=== PATIENT | female | born 1965 | race Caucasian/White ===

== ENCOUNTER 2018-09-27 10:46 | Outpatient (CLI) | payer OTHER, SELFPAY ==
--- NOTE | 2018-09-27 09:39 | DI.RAD_ITS ---
SYMPTOM/DIAGNOSIS: LEFT ANKLE PAIN LEFT ANKLE: 09/27 Two views were obtained. No gross abnormality of the ankle mortise. Minimal spurring of the medial malleolus. No other specific abnormality seen on this limited series.
== END 2018-09-27 11:06 ==
PROVIDERS: PCP Neuromusculoskeletal Medicine & OMM; Visit Provider Physician Assistant
DX: S99.912A Unspecified injury of left ankle, initial encounter (principal); M25.572 Pain in left ankle and joints of left foot
CPT/HCPCS: 73600

== ENCOUNTER 2019-03-13 01:16 | Outpatient (CLI) | payer OTHER, SELFPAY ==
--- NOTE | 2019-03-13 14:30 | DI.MRI_ITS ---
EXAM: MR BRAIN WO CLINICAL HISTORY: Pt with new left sided headaches R51. TECHNIQUE: Multiplanar multisequence MRI was performed. COMPARISON: No exams were available for comparison FINDINGS: There is a large mucous retention cyst in the right maxillary sinus. The remaining sinuses as well as mastoid air cells appear clear. There is mild atrophy. There are few scattered high signal lesi ons in the white matter consistent with small vessel disease. No acute hemorrhage, infarct or mass i s seen. The vascular flow voids appear intact. The orbits are unremarkable. A partial empty sella is noted. IMPRESSION: Partial empty sella. Right maxillary sinus mucous retention cyst. No acute abnormality.
== END 2019-03-13 01:36 ==
PROVIDERS: PCP Family Medicine; Visit Provider Nurse Practitioner Adult Health
DX: R51 Headache (principal); J34.1 Cyst and mucocele of nose and nasal sinus; E23.6 Other disorders of pituitary gland
CPT/HCPCS: 70551

== ENCOUNTER 2019-03-26 18:19 | Outpatient (REF) | payer OTHER, SELFPAY | END 2019-03-26 18:39 | LOC: LBN 18:19 | PROVIDERS: PCP Family Medicine; Visit Provider Family Medicine | DX: R30.0 Dysuria (principal) | CPT/HCPCS: 87086 ==

== ENCOUNTER 2019-04-29 14:32 | Outpatient (CLI) | payer OTHER, SELFPAY ==
[2019-04-29 14:58] LABS: Mean Corpuscular Hemoglobin 28.9 pg (27.0-33.0); Mean Corpuscular Volume 84.8 fL (80-95); Mean Platelet Volume 10.1 fL (8.0-11.0); Platelet Count 198 x1000/uL (130-400); RBC 5.54 m/cumm (4.00-5.20); RBC Distribution Width 13.5 % (11.7-14.6); White Blood Cell Count 8.07 k/cumm (4.4-10.8)
[2019-04-29 15:50] LABS: ESR 29 mm/hr (0-30)
[2019-04-29 16:26] LABS: ALT 31 U/L (14-59); AST 18 U/L (15-37); Albumin 3.4 g/dL (3.4-5.0); Alkaline Phosphatase 90 U/L (46-116); Anion Gap 9.5 mmol/L (3-11); BUN 16 mg/dL (7-18); Bilirubin, Total 0.5 mg/dL (0.2-1.0); C-Reactive Protein 0.58 mg/dL (0.0-0.3); CO2 28.5 mmol/L (21.0-32.0); CREATININE 0.76 mg/dL (0.55-1.02); Calcium 8.6 mg/dL (8.5-10.1); Chloride 97 mmol/L (98-107); Creatine Kinase 83 U/L (26-192); Glucose 423 mg/dL (74-106); Potassium 4.4 mmol/L (3.5-5.1); Sodium 135 mmol/L (136-145); Total Protein 6.7 g/dL (6.4-8.2)
[2019-04-29 16:38] LABS: Vitamin D 25 Total 5.5 ng/ml (30-100)
[2019-04-30 10:47] LABS: Lyme Ab w Rflx to Lyme Confirm Negative (Negative)
[2019-04-30 15:39] LABS: ANA Interpretation Negative (Negative)
== END 2019-04-29 14:52 ==
PROVIDERS: PCP Family Medicine; Visit Provider Nurse Practitioner
DX: I10 Essential (primary) hypertension (principal); M79.10 Myalgia, unspecified site; M54.5 Low back pain
CPT/HCPCS: 36415; 80053; 82306; 82550; 85027; 85652; 84443; 86038; 86140; 86618

== ENCOUNTER 2019-05-12 10:06 | Emergency (ER) | payer OTHER, SELFPAY ==
[2019-05-12] VITALS (27 sets, daily range): BP systolic 111–151; BP diastolic 44–75; PULSE 71–87; RESP 15–24; TEMP 36.6; O2SAT 90–98
--- NOTE | 2019-05-12 10:18 | W.ED.GENAD ---
Discharge Plan Disposition Patient Disposition: HOME Condition: Improving Discharge Details Chief Complaint: GenMedical Clinical Impression: Myalgia, Arthralgia, Fracture of coccyx, Syncopal episodes Primary Care Provider: Enrike Heredia ED Provider: Linh Castillo Home Meds and New Rx's Prescriptions: New tramadol 50 mg tablet 50 mg PO BID PRN (Reason: pain) Qty: 10 RF: 0 methocarbamol 500 mg tablet 500 mg PO Q6H PRN (Reason: muscle spasm) Qty: 14 RF: 0 Continued acetaminophen-codeine 300-30 mg tablet 1 tab PO TID PRN (Reason: pain) Qty: 9 RF: 0 ergocalciferol (vitamin D2) 1,250 mcg (50,000 unit) capsule 50,000 unit PO QWEEK Qty: 6 RF: 3 lisinopril 40 mg tablet 40 mg PO DAILY Qty: 90 RF: 3 Lantus U-100 Insulin 100 unit/mL solution 90 unit SC DAILY Qty: 100 RF: 12 (DME) BD Insulin Syringe 1 mL 26 x 1/2 syringe See Rx Instructions .ROUTE .MEDSUPPLY Qty: 100 RF: 8 pseudoephedrine HCl 30 mg tablet (abuse-resistant) 30 mg PO Q6H PRN (Reason: nasal congestion) Qty: 20 RF: 0 nitroglycerin [Nitrostat] 0.4 MG tablet, sublingual 1 tab.sl Sublingual PRN Qty: 1 RF: 1 (DME) lancets 1 EACH misc 1 ea Miscellaneous TID Qty: 400 RF: 0 clotrimazole 1 % cream 1 applic TP BID RF: 0 prochlorperazine maleate 10 mg tablet 10 mg PO BID RF: 0 albuterol sulfate [ProAir HFA] 90 mcg/actuation HFA aerosol inhaler 2 puff Inhalation Q6H PRN PRN (Reason: shortness of breath or wheezing) Qty: 18 RF: 6 aspirin [Ecotrin Low Strength] 81 mg tablet,delayed release (DR/EC) 81 mg PO DAILY Qty: 90 RF: 3 atorvastatin 80 mg tablet 80 mg PO DAILY Qty: 90 RF: 3 clopidogrel [Plavix] 75 mg tablet 75 mg PO DAILY Qty: 90 RF: 3 ibuprofen 800 mg tablet 800 mg PO TID PRN PRN (Reason: pain) Qty: 180 RF: 3 insulin aspart U-100 [Novolog Flexpen U-100 Insulin] 100 unit/mL (3 mL) insulin pen See Rx Instructions subcut AC Qty: 15 RF: 6 isosorbide mononitrate 30 mg tablet extended release 24 hr 30 mg PO DAILY Qty: 90 RF: 3 metoprolol succinate [Toprol XL] 200 mg tablet extended release 24 hr 200 mg PO DAILY Qty: 90 RF: 3 pantoprazole [Protonix] 40 mg tablet,delayed release (DR/EC) 40 mg PO DAILY Qty: 90 RF: 3 prazosin 2 mg capsule 6 mg PO HS Qty: 180 RF: 3 triamcinolone acetonide 0.5 % cream 1 applic TP BID Qty: 454 RF: 6 quetiapine 400 mg tablet 800 mg PO QHS Qty: 180 RF: 3 benzonatate [Tessalon Perles] 100 mg capsule 100 mg PO TID PRN (Reason: cough) Qty: 30 RF: 0 hydrochlorothiazide 25 MG tablet 25 mg PO DAILY RF: 0 sertraline 100 mg tablet 200 mg PO DAILY RF: 0 Discontinued cyclobenzaprine 10 mg tablet 10 mg PO TID PRN (Reason: muscle spasm) Qty: 30 RF: 0 Discharge Instructions Instructions: Syncope (ED), Musculoskeletal Pain (ED) Additional Instructions: Drink plenty of fluids and get plenty of rest. Alternate tylenol and motrin as needed and directed for pain. You can try [id number] Lidoderm patches to use for pain as needed and directed. Take the tramadol and methocarbamol as needed and directed for pain. Follow-up with your primary care doctor in 1 week for reevaluation and for referral for outpatient monitor technician if symptoms persist or worsen. Return to the emergency department with any worsening or new concerning symptoms. Discharge Data Discharge Date/Time-TO BE ENTERED AT DEPARTURE: 05/12/19 15:11 Discharge Physician: Linh Castillo Medical Decision Making 1020 -- 54-year-old female with a history of anxiety, depression, schizophrenia, PTSD, borderline multiple personality disorders, diabetes, hypertension, hyperlipidemia presents for multiple complaints including myalgias for few weeks, cough with mild shortness of breath, coccyx pain and headache status post fall after multiple syncopal episodes last night. Denies fever. EKG on arrival notes a rate of 84, sinus with no acute ST ischemic changes. Patient appears to have discomfort with any movement, most specifically in her coccyx. Her PCP stopped her statin due to her myalgias. She also states she has had a recent negative Lyme test. Differential diagnosis includes electrolyte abnormality, dehydration, myalgias due to statin, coccyx contusion versus fracture, pneumonia, bronchitis. Will check screening labs, CT head, chest x-ray and coccyx x-ray and give a dose of Decadron, Toradol and fluids and reassess. 1245 -- Labs and imaging reviewed. Glucose 411. Pt states her sugars have been 200s at home. Chest x-ray negative. CT head negative for acute findings. Coccyx x-ray noted a questionable healing nondisplaced fracture. Patient reassessed -pain decreased from 11 down to 7. Still complaining of midline and left-sided lower back pain. Will give a dose of morphine and Lidoderm patch and reassess. 1415 --patient feels much better. She appears much more comfortable. Orthostats obtained and within normal limits. Urinalysis negative for infection. Patient feels good to go home. We will send home with pain medication. Patient advised to call her primary care doctor tomorrow for follow-up. Usual and customary return precautions given prior to discharge. Medical Records Medical records reviewed: Yes I reviewed the patient's medical records. Imaging Data Radiologic Study: Radiologist's impression: XR Chest, 2 Views Exam date and time: 05/12/2019 12:15 PM Age: 54 years old Clinical indication: Chest pain; Type not specified; Patient HX: Difficulty breathing TECHNIQUE: Imaging protocol: XR of the chest Views: 2 views. COMPARISON: No relevant prior studies available. FINDINGS: Lungs: Unremarkable. No consolidation. Pleural space: Unremarkable. No pleural effusion. No pneumothorax. Heart/Mediastinum: Unremarkable. No cardiomegaly. Bones/joints: Unremarkable. IMPRESSION: No acute findings. CT Head Without Contrast Exam date and time: 05/12/2019 12:09 PM Age: 54 years old Clinical indication: Dizziness and visual disturbance; Patient HX: H/a TECHNIQUE: Imaging protocol: Computed tomography of the head without contrast. Radiation optimization: All CT scans at this facility use at least one of these dose optimization techniques: automated exposure control; mA and/or kV adjustment per patient size (includes targeted exams where dose is matched to clinical indication); or iterative reconstruction. COMPARISON: CT HEAD/BRAIN WO CONTRAST 01/09/2019 5:19 PM FINDINGS: Brain: There is mild diffuse heterogeneity of the white matter attenuation, consistent with chronic white matter ischemic changes. There is mild generalized brain parenchymal volume loss. Ventricles: The ventricular system demonstrates mild diffuse compensatory enlargement. Bones/joints: Unremarkable. No acute fracture. Sinuses: Partial opacification of the right maxillary sinus with a frothy air fluid level. The remaining paranasal sinuses are clear. Mastoid air cells: Visualized mastoid air cells are well aerated. Soft tissues: Unremarkable. Other findings: Partially empty sella turcica. IMPRESSION: 1. No acute intracranial findings. 2. Partially empty sella turcica. 3. Right maxillary sinusitis. Lab Data Lab results reviewed: Yes I reviewed the patient's lab results. Labs: Laboratory Tests Range/Units 05/12/19 05/12/19 05/12/19 10:50 10:50 10:50 WBC (4.4-10.8) k/cumm 7.93 RBC (4.00-5.20) m/cumm 5.57 H Hgb (12.0-15.5) g/dL 16.2 H Hct (36.0-46.0) % 46.9 H MCV (80-95) fL 84.2 MCH (27.0-33.0) pg 29.1 MCHC (32.0-36.0) g/dL 34.5 RDW (11.7-14.6) % 13.7 Plt Count (130-400) x1000/uL 215 MPV (8.0-11.0) fL 10.0 Immature Gran % % 0.5 Neutrophils % 66.7 Lymphocytes % 23.2 Monocytes % 7.8 Eosinophils % 1.4 Basophils % 0.4 Absolute Neutrophils (1.2-6.7) k/cumm 5.29 Absolute Lymphocytes (1.2-3.4) k/cumm 1.84 Absolute Monocytes (0.11-0.7) k/cumm 0.62 Absolute Eosinophils (0.0-0.7) k/cumm 0.11 Absolute Basophils (0.0-0.2) k/cumm 0.03 Sodium (136-145) mmol/L 133 L Potassium (3.5-5.1) mmol/L 4.2 Chloride (98-107) mmol/L 95 L Carbon Dioxide (21.0-32.0) mmol/L 29.7 Anion Gap (3-11) mmol/L 8.3 BUN (7-18) mg/dL 18 Creatinine (0.55-1.02) mg/dL 0.78 Estimated GFR/1.73 m2 (mL/min/1.73m2) >= 60.00 Glucose (74-106) mg/dL 411 H Calcium (8.5-10.1) mg/dL 9.5 Magnesium (1.8-2.4) mg/dL 1.6 L Total Bilirubin (0.2-1.0) mg/dL 0.7 AST (15-37) U/L 17 ALT (14-59) U/L 24 Alkaline Phosphatase (46-116) U/L 76 Creatine Kinase (26-192) U/L 64 Troponin I (<0.06) ng/Ml < 0.05 Total Protein (6.4-8.2) g/dL 7.0 Albumin (3.4-5.0) g/dL 3.3 L Urine Color (Yellow) Urine Clarity (Clear) Urine pH (5-8) Ur Specific [place] (1.005-1.025) Urine Protein (Negative) mg/dL Urine Ketones (Negative) mg/dL Urine Blood (Negative) Urine Nitrite (Negative) Urine Bilirubin (Negative) Urine Urobilinogen (Up TO 0.2) EU/dL Ur Leukocyte Esterase (Negative) Urine RBC (0-2) HPF Urine WBC (0-5) HPF Ur Epithelial Cells (Negative) HPF Urine Crystals (Negative) HPF Urine Bacteria (Negative) HPF Urine Casts (Negative) LPF Urine Mucus (Negative) Urine Other (Negative) Ur Culture Indicated? Urine Glucose (Negative) mg/dL Range/Units 05/12/19 13:15 WBC (4.4-10.8) k/cumm RBC (4.00-5.20) m/cumm Hgb (12.0-15.5) g/dL Hct (36.0-46.0) % MCV (80-95) fL MCH (27.0-33.0) pg MCHC (32.0-36.0) g/dL RDW (11.7-14.6) % Plt Count (130-400) x1000/uL MPV (8.0-11.0) fL Immature Gran % % Neutrophils % Lymphocytes % Monocytes % Eosinophils % Basophils % Absolute Neutrophils (1.2-6.7) k/cumm Absolute Lymphocytes (1.2-3.4) k/cumm Absolute Monocytes (0.11-0.7) k/cumm Absolute Eosinophils (0.0-0.7) k/cumm Absolute Basophils (0.0-0.2) k/cumm Sodium (136-145) mmol/L Potassium (3.5-5.1) mmol/L Chloride (98-107) mmol/L Carbon Dioxide (21.0-32.0) mmol/L Anion Gap (3-11) mmol/L BUN (7-18) mg/dL Creatinine (0.55-1.02) mg/dL Estimated GFR/1.73 m2 (mL/min/1.73m2) Glucose (74-106) mg/dL Calcium (8.5-10.1) mg/dL Magnesium (1.8-2.4) mg/dL Total Bilirubin (0.2-1.0) mg/dL AST (15-37) U/L ALT (14-59) U/L Alkaline Phosphatase (46-116) U/L Creatine Kinase (26-192) U/L Troponin I (<0.06) ng/Ml Total Protein (6.4-8.2) g/dL Albumin (3.4-5.0) g/dL Urine Color (Yellow) Yellow Urine Clarity (Clear) Clear Urine pH (5-8) 5.5 Ur Specific [place] (1.005-1.025) 1.020 Urine Protein (Negative) mg/dL >=300 H Urine Ketones (Negative) mg/dL 15 H Urine Blood (Negative) Small H Urine Nitrite (Negative) Negative Urine Bilirubin (Negative) Negative Urine Urobilinogen (Up TO 0.2) EU/dL 0.2 Ur Leukocyte Esterase (Negative) Negative Urine RBC (0-2) HPF 3-5 H Urine WBC (0-5) HPF 0-2 Ur Epithelial Cells (Negative) HPF Moderate Urine Crystals (Negative) HPF Negative Urine Bacteria (Negative) HPF Few Urine Casts (Negative) LPF 0-2 hyaline Urine Mucus (Negative) Trace Urine Other (Negative) Negative Ur Culture Indicated? No/sq. contamination Urine Glucose (Negative) mg/dL 500 H ECG Data Attestation: I personally reviewed and interpreted this ECG (s) as follows: Interpretation: Rate of 84, sinus, no acute ST elevation or depression. MN 174. QTc 470. QRS 110. HPI General Mode of arrival: ambulatory. Date/Time Provider Initiated Documentation: 05/12/19 10:08. Limitations to Documentation: no limitations. Information obtained by: patient. HPI Narrative: Patient is a 54-year-old female with a history of anxiety, depression, schizophrenia, PTSD, borderline personality disorder, multiple personality disorder, diabetes, hypertension, hyperlipidemia who presents for multiple complaints. She states she has been having diffuse body pain specifically in both arms, legs and her lower back for the past 2 weeks. She saw her PCP for this and it was thought it may be fibromyalgia, or due to her statin which she stopped 4 days ago. She states she was also placed on Flexeril and gabapentin for this with some relief. She states she was also treated for an ear infection with antibiotics which she finished Monday. She states the ear pain improved since then. She also complains of cough with green sputum and occasional shortness of breath for the past 2 days. She states last night she was walking around home and became dizzy and passed out a few times. She states during 1 of these episodes she fell and hit her head and bottom on the ground is complaining of headache and tailbone pain. She states she still feels dizzy today which feels like a lightheaded sensation specifically when getting up and walking around. She denies any chest pain but does admit to feeling of palpitations. She states she has been eating and drinking and denies any vomiting, diarrhea or abdominal pain. Related Data Home Medications Medication Instructions Recorded Confirmed nitroglycerin [Nitrostat] 1 tab.sl SUBLINGUAL PRN #1 bottle 04/16/14 05/12/19 lancets #400 ea 05/03/14 04/26/19 hydrochlorothiazide 25 mg PO DAILY 06/14/17 05/12/19 clotrimazole 1 % topical cream 1 applic TP BID 01/16/19 04/26/19 prochlorperazine maleate 10 mg 10 mg PO BID 01/18/19 05/12/19 tablet lisinopril 40 mg tablet 40 mg PO DAILY #90 tab 01/24/19 05/12/19 albuterol sulfate 90 mcg/actuation 2 puff INHALATION Q6H PRN PRN #18 03/15/19 05/12/19 aerosol inhaler gm aspirin 81 mg tablet,delayed 81 mg PO DAILY #90 tab 03/15/19 05/12/19 release atorvastatin 80 mg tablet 80 mg PO DAILY #90 tab 03/15/19 05/12/19 clopidogrel 75 mg tablet 75 mg PO DAILY #90 tab 03/15/19 05/12/19 ibuprofen 800 mg tablet 800 mg PO TID PRN PRN #180 tab 03/15/19 05/12/19 insulin aspart U-100 100 unit/mL See Rx Instructions SUBCUT AC #15 03/15/19 05/12/19 (3 mL) subcutaneous pen ml isosorbide mononitrate 30 mg 30 mg PO DAILY #90 tab 03/15/19 05/12/19 tablet,extended release 24 hr metoprolol succinate 200 mg 200 mg PO DAILY #90 tab 03/15/19 05/12/19 tablet,extended release 24 hr pantoprazole 40 mg tablet,delayed 40 mg PO DAILY #90 tab-cap 03/15/19 05/12/19 release prazosin 2 mg capsule 6 mg PO HS #180 cap 03/15/19 05/12/19 triamcinolone acetonide 0.5 % 1 applic TP BID #454 gm 03/15/19 05/12/19 topical cream quetiapine 400 mg tablet 800 mg PO QHS #180 tab 03/18/19 05/12/19 acetaminophen 300 mg-codeine 30 mg 1 tab PO TID PRN #9 tab 04/29/19 05/12/19 tablet ergocalciferol (vitamin D2) 1,250 50,000 unit PO QWEEK #6 cap 04/30/19 05/12/19 mcg (50,000 unit) capsule benzonatate 100 mg capsule 100 mg PO TID PRN #30 cap 05/03/19 05/12/19 insulin glargine 100 unit/mL 90 unit SC DAILY #100 ml 05/06/19 05/12/19 subcutaneous solution insulin syringe-needle U-100 1 mL #100 each 05/06/19 05/06/19 26 x 1/2 pseudoephedrine HCl 30 mg tablet 30 mg PO Q6H PRN #20 tab 05/06/19 05/12/19 (abuse-resistant) methocarbamol 500 mg PO Q6H PRN #14 tab 05/12/19 sertraline 200 mg PO DAILY 05/12/19 05/12/19 tramadol 50 mg PO BID PRN #10 tab 05/12/19 Previous Rx's Medication Instructions Recorded lisinopril 40 mg tablet 40 mg PO DAILY #90 tab 01/24/19 albuterol sulfate 90 mcg/actuation 2 puff INHALATION Q6H PRN PRN #18 03/15/19 aerosol inhaler gm aspirin 81 mg tablet,delayed 81 mg PO DAILY #90 tab 03/15/19 release atorvastatin 80 mg tablet 80 mg PO DAILY #90 tab 03/15/19 clopidogrel 75 mg tablet 75 mg PO DAILY #90 tab 03/15/19 ibuprofen 800 mg tablet 800 mg PO TID PRN PRN #180 tab 03/15/19 insulin aspart U-100 100 unit/mL See Rx Instructions SUBCUT AC #15 03/15/19 (3 mL) subcutaneous pen ml isosorbide mononitrate 30 mg 30 mg PO DAILY #90 tab 03/15/19 tablet,extended release 24 hr metoprolol succinate 200 mg 200 mg PO DAILY #90 tab 03/15/19 tablet,extended release 24 hr pantoprazole 40 mg tablet,delayed 40 mg PO DAILY #90 tab-cap 03/15/19 release prazosin 2 mg capsule 6 mg PO HS #180 cap 03/15/19 triamcinolone acetonide 0.5 % 1 applic TP BID #454 gm 03/15/19 topical cream quetiapine 400 mg tablet 800 mg PO QHS #180 tab 03/18/19 acetaminophen 300 mg-codeine 30 mg 1 tab PO TID PRN #9 tab 04/29/19 tablet ergocalciferol (vitamin D2) 1,250 50,000 unit PO QWEEK #6 cap 04/30/19 mcg (50,000 unit) capsule benzonatate 100 mg capsule 100 mg PO TID PRN #30 cap 05/03/19 insulin glargine 100 unit/mL 90 unit SC DAILY #100 ml 05/06/19 subcutaneous solution insulin syringe-needle U-100 1 mL #100 each 03/23/20 26 x 1/2 pseudoephedrine HCl 30 mg tablet 30 mg PO Q6H PRN #20 tab 05/06/19 (abuse-resistant) methocarbamol 500 mg PO Q6H PRN #14 tab 05/12/19 tramadol 50 mg PO BID PRN #10 tab 05/12/19 Allergies Allergy/AdvReac Type Severity Reaction Status Date / Time levofloxacin [From Levaquin] Allergy Verified 04/29/19 14:03 Penicillins Allergy Verified 04/29/19 14:03 pioglitazone HCl [From Actos] Allergy Verified 04/29/19 14:03 gabapentin AdvReac so sick Verified 04/29/19 14:03 vomitting/headache metformin AdvReac DIARRHEA Verified 04/29/19 14:03 Review of Systems All systems reviewed & are unremarkable except as noted in HPI and below Constitutional Constitutional: Reports as per HPI, Denies chills and Denies fever(s) Eyes Eyes: Denies blurry vision ENT Ears, Nose, Mouth, and Throat: Reports dizziness, Denies sore throat and Denies throat swelling Cardiovascular Cardiovascular: Denies chest pain, Reports rapid heart rate and Denies dyspnea Respiratory Respiratory: Reports cough and Denies dyspnea Gastrointestinal Gastrointestinal: Denies abdominal pain, Denies diarrhea and Denies vomiting Genitourinary Genitourinary: Denies hematuria and Denies dysuria Musculoskeletal Musculoskeletal: Reports back pain and Denies numbness Integumentary/Breasts Skin/Breast: Denies lesions and Denies rash Neurologic Neurologic: Reports dizziness, Denies localized weakness and Denies numbness Allergic/Immunologic Allergic/Immunologic: Denies throat swelling [facility] Social History Smoking/Tobacco Use Status: Current every day Tobacco Type: cigarettes Years smoked: 40 Alcohol Intake: current Alcohol Intake frequency: holidays/special occasions only Alcohol type: wine Drug use: Never Adopted: No Caregiver/Support person: No Foster care: No Household members: none Number of Children: 2 Do you need help understanding health information?: Never current occupation: Disabled Pets and animals: Yes (Therapy dog) Sexually active: No Do you think of yourself as: straight/heterosexual Current gender identity: female What is your relationship status?: Panel score (0-1 are the most socially isolated patients): 0 Seatbelt use: never Do you feel safe at home: Yes Do you feel safe in your relationship?: Yes Exam Const General: cooperative and healthy appearing Orientation: alert and awake [facility] Head: no palpable skull fracture and normocephalic Head images: 1. 2 x 2 centimeter small faint area of ecchymosis that is tender to palpation. No induration or fluctuance. No open wounds noted. Ears: hearing grossly normal bilaterally, external ears normal and TM's normal bilaterally General nose exam: external nose normal Face and sinus: normal facial exam Mouth: oral mucosae normal Teeth and gingiva: dentition normal Throat: posterior oropharynx normal Eyes General: appearance normal, both eyes and all related structures Eyelids: eyelids normal Pupils: PERRL EOM: EOM intact bilaterally Neck Neck: normal visual inspection Lymphatic: no lymphadenopathy noted Chest Chest: normal inspection of the chest Resp Effort & Inspection: normal respiratory effort and able to speak in complete sentences Auscultation: clear to auscultation bilaterally Cardio Rate: regular rate Rhythm: regular rhythm GI Inspection: normal to inspection Palpation: soft, not firm, no guarding, no hepatosplenomegaly, no masses and nontender Auscultation: normal bowel sounds Back/Spine/Pelvis Back: no CVA tenderness Cervical Spine: No cervical spinal tenderness Thoracic/Lumbar Spine: No thoracic spinal tenderness and No lumbar spinal tenderness Skin General skin exam: no rashes or lesions noted Neuro General: patient alert and patient awake Cognition: normal cognition Speech: speech normal Gait: normal gait Motor: muscle tone normal throughout Sensory Exam: no sensory deficits noted Extrem General: normal to inspection, full ROM and capillary refill normal Psych Appearance: grossly normal Mental Status: mental status grossly normal Speech and Movement: speech and movement normal Affect: normal affect Thought Process: normal
[2019-05-12] MEDS: Dexamethasone 10 MG/ML VIAL IVP (11:45)
[2019-05-12] MEDS: Ketorolac 30 MG/ML VIAL IVP (11:47)
[2019-05-12] MEDS: Normal Saline 1,000 ML 1000 ML IV (11:47)
[2019-05-12 11:50] LABS: Abs Immature Grans 0.04 k/cumm (0.0-0.09); Absolute Basophil Count 0.03 k/cumm (0.0-0.2); Absolute Eosinophil Count 0.11 k/cumm (0.0-0.7); Absolute Lymphocyte Count 1.84 k/cumm (1.2-3.4); Absolute Monocyte Count 0.62 k/cumm (0.11-0.7); Absolute Neutrophil Count 5.29 k/cumm (1.2-6.7); Basophils % 0.4; Eosinophils % 1.4; HCT 46.9 % (36.0-46.0); HGB 16.2 g/dL (12.0-15.5); Immature Grans % 0.5 %; Lymphocytes % 23.2; Mean Corp. HGB Concentration 34.5 g/dL (32.0-36.0); Mean Corpuscular Hemoglobin 29.1 pg (27.0-33.0); Mean Corpuscular Volume 84.2 fL (80-95); Monocytes % 7.8; Neutrophils % 66.7; Platelet Count 215 x1000/uL (130-400); RBC 5.57 m/cumm (4.00-5.20); RBC Distribution Width 13.7 % (11.7-14.6); White Blood Cell Count 7.93 k/cumm (4.4-10.8)
[2019-05-12 12:06] LABS: Creatine Kinase 64 U/L (26-192)
--- NOTE | 2019-05-12 12:08 | DI.CT_ITS ---
EXAM: CT HEAD WO CLINICAL HISTORY: s/p head injury, dizziness, r/o acute injury COMPARISON: MR BRAIN WO from 03/13/2019 FINDINGS: Noncontrast cranial CT was performed. Note is made of fluid in the right maxillary antrum, question acute or chronic sinusitis. The orbital and temporal bone structures appear intact. Mastoid air keshawn ls and paranasal sinuses are otherwise well aerated. Motion artifact somewhat limits this examinatio n. There is an unremarkable appearance of the ventricular system. There is mild bifrontal atrophy. The re is no evidence of acute intracranial hemorrhage, mass effect, or midline shift. IMPRESSION: No evidence of acute intracranial process.
[2019-05-12 12:10] LABS: ALT 24 U/L (14-59); AST 17 U/L (15-37); Albumin 3.3 g/dL (3.4-5.0); Alkaline Phosphatase 76 U/L (46-116); Anion Gap 8.3 mmol/L (3-11); BUN 18 mg/dL (7-18); Bilirubin, Total 0.7 mg/dL (0.2-1.0); CO2 29.7 mmol/L (21.0-32.0); CREATININE 0.78 mg/dL (0.55-1.02); Calcium 9.5 mg/dL (8.5-10.1); Chloride 95 mmol/L (98-107); Glucose 411 mg/dL (74-106); Magnesium 1.6 mg/dL (1.8-2.4); Potassium 4.2 mmol/L (3.5-5.1); Sodium 133 mmol/L (136-145); Troponin I < 0.05 ng/Ml (<0.06)
--- NOTE | 2019-05-12 12:19 | DI.RAD_ITS ---
EXAM: <XR CHEST 2V PA LATERAL> CLINICAL HISTORY: <cough, sob, r/o acute disease> TECHNIQUE: 2D digital imaging was performed. COMPARISON: CHEST 2 VIEWS PA,LAT from 10/17/2013 FINDINGS: The heart is not enlarged. The lungs are clear and well expanded. No pleural effusion seen. Mediastin al contours appear intact. IMPRESSION: Normal chest
--- NOTE | 2019-05-12 12:30 | DI.RAD_ITS ---
EXAM: XR SACRUM COCCYX CLINICAL HISTORY: s/p fall onto bottom, r/o acute fracture TECHNIQUE: COMPARISON: No exams were available for comparison FINDINGS: Three views were obtained. Bones appears somewhat demineralized and there is poor visualization of t he sacral cortex on the AP views. Question slight cortical discontinuity and/or cortical thickening associated with distal sacrum/proximal coccyx, healing injury not excluded. IMPRESSION: Examination is technically limited, no displaced fracture seen but the possibility of nondisplaced he aling coccygeal or distal sacral fracture is not excluded. If clinically indicated additional evalua tion with CT could be considered.
--- NOTE | 2019-05-12 12:43 | DI.VRAD_ITS ---
PROCEDURE INFORMATION: Exam: XR Chest, 2 Views Exam date and time: 05/12/2019 12:15 PM Age: 54 years old Clinical indication: Chest pain; Type not specified; Patient HX: Difficulty breathing TECHNIQUE: Imaging protocol: XR of the chest Views: 2 views. COMPARISON: No relevant prior studies available. FINDINGS: Lungs: Unremarkable. No consolidation. Pleural space: Unremarkable. No pleural effusion. No pneumothorax. Heart/Mediastinum: Unremarkable. No cardiomegaly. Bones/joints: Unremarkable. IMPRESSION: No acute findings. Dictated and Authenticated by: Flaquito Colin MD. Ordering:SARIKA Melton MD
--- NOTE | 2019-05-12 12:51 | DI.VRAD_ITS ---
PROCEDURE INFORMATION: Exam: CT Head Without Contrast Exam date and time: 05/12/2019 12:09 PM Age: 54 years old Clinical indication: Dizziness and visual disturbance; Patient HX: H/a TECHNIQUE: Imaging protocol: Computed tomography of the head without contrast. Radiation optimization: All CT scans at this facility use at least one of these dose optimization techniques: automated exposure control; mA and/or kV adjustment per patient size (includes targeted exams where dose is matched to clinical indication); or iterative reconstruction. COMPARISON: CT HEAD/BRAIN WO CONTRAST 01/09/2019 5:19 PM FINDINGS: Brain: There is mild diffuse heterogeneity of the white matter attenuation, consistent with chronic white matter ischemic changes. There is mild generalized brain parenchymal volume loss. Ventricles: The ventricular system demonstrates mild diffuse compensatory enlargement. Bones/joints: Unremarkable. No acute fracture. Sinuses: Partial opacification of the right maxillary sinus with a frothy air fluid level. The remaining paranasal sinuses are clear. Mastoid air cells: Visualized mastoid air cells are well aerated. Soft tissues: Unremarkable. Other findings: Partially empty sella turcica. IMPRESSION: 1. No acute intracranial findings. 2. Partially empty sella turcica. 3. Right maxillary sinusitis. Dictated and Authenticated by: Flaquito Colin MD. Ordering:SARIKA Melton MD
[2019-05-12] MEDS: Lidocaine 5% Patch 1 PATCH TP (13:09)
[2019-05-12 13:24] LABS: Bilirubin Negative (Negative); Blood Small (Negative); Clarity Clear (Clear); Glucose 500 mg/dL (Negative); Ketones 15 mg/dL (Negative); Leukocyte Esterase Negative (Negative); Nitrite Negative (Negative); Urobilinogen 0.2 EU/dL (Up TO 0.2); pH 5.5 (5-8)
--- NOTE | 2019-05-12 13:24 | DI.VRAD_ITS ---
PROCEDURE INFORMATION: Exam: XR Sacrum and Coccyx, 2 or More Views Exam date and time: 05/12/2019 12:20 PM Age: 54 years old Clinical indication: Pain in coccyx area TECHNIQUE: Imaging protocol: XR of the sacrum and coccyx, 2 or more views. COMPARISON: No relevant prior studies available. FINDINGS: Bones/joints: There may be some periosteal reaction about the coccyx which could represent a healing nondisplaced fracture. No displaced fractures are evident. Mild degenerative changes at the lumbosacral junction. Soft tissues: Normal. Vasculature: Vascular calcifications are noted. There are numerous benign phleboliths in the pelvis. IMPRESSION: There may be some periosteal reaction about the coccyx which could represent a healing nondisplaced fracture. No displaced fractures are evident. Recommend clinical correlation to point tenderness. Dictated and Authenticated by: Flaquito Colin MD. Ordering:SARIKA Melton MD
[2019-05-12 13:35] LABS: Bacteria Few HPF (Negative); Crystals Negative HPF (Negative); Epithelial Cells Moderate HPF (Negative); Mucus Trace (Negative); Other Cells Negative (Negative); WBC 0-2 HPF (0-5)
[2019-05-12 13:36] LABS: C & S Indicated? No/Sq. Contamination; Casts 0-2 Hyaline LPF (Negative)
== END 2019-05-12 15:11 | disposition home or self-care (01) ==
PROVIDERS: Emergency Provider Physician Assistant; PCP Family Medicine
DX: S32.2XXA Fracture of coccyx, initial encounter for closed fracture (principal); W19.XXXA Unspecified fall, initial encounter; R55 Syncope and collapse; M79.10 Myalgia, unspecified site; R05 Cough; E11.65 Type 2 diabetes mellitus with hyperglycemia; Z79.4 Long term (current) use of insulin; I10 Essential (primary) hypertension; J44.9 Chronic obstructive pulmonary disease, unspecified; F17.210 Nicotine dependence, cigarettes, uncomplicated
CPT/HCPCS: 36415; 80053; 82550; 93005; 96361; 96374; 96375; 99285; 70450; 71046; 72220; 81003; 81015; 83735; 84484; 85025; 93010; J1100; J1885

== ENCOUNTER 2019-05-17 01:13 | Outpatient (CLI) | payer OTHER, SELFPAY | END 2019-05-17 01:33 | PROVIDERS: PCP Family Medicine; Visit Provider Family Medicine | DX: R55 Syncope and collapse (principal); I47.2 Ventricular tachycardia | CPT/HCPCS: 93225 ==

== ENCOUNTER 2019-05-20 09:10 | Outpatient (CLI) | payer OTHER, SELFPAY ==
--- NOTE | 2019-05-20 10:53 | W.HOLTRPT ---
Date of service: 05/20/19 Time of Service: 10:53 Holter Monitor Report Holter Monitor Note: This is a Holter monitor ordered for the indication of syncope. ?Patient was in normal sinus rhythm for majority of the recording. ?There were 0 episodes of supraventricular tachycardia and 13 premature atrial contractions. ?There was one 4 beat run of ventricular tachycardia and 30 singular ventricular ectopic events. ?There were no episodes of atrial fibrillation, no pauses greater than 3 seconds and no evidence of high degree heart block. ?There were 4 patient diary events all associated with normal sinus rhythm and one singular PVC.
== END 2019-05-20 09:30 ==
PROVIDERS: PCP Family Medicine; Visit Provider Family Medicine
DX: R55 Syncope and collapse (principal); I47.2 Ventricular tachycardia
CPT/HCPCS: 93226

== ENCOUNTER 2019-06-07 03:02 | Outpatient (CLI) | payer OTHER, SELFPAY ==
--- NOTE | 2019-06-07 07:00 | DI.US_ITS ---
EXAM: US LOWER EXTREMITY VENOUS LT CLINICAL HISTORY: New onset LLE edema,r60.9. TECHNIQUE: Lower extremity venous ultrasound performed using grayscale, color-flow, and spectral Dop pler analysis. COMPARISON: No exams were available for comparison FINDINGS: The common femoral, femoral and popliteal veins demonstrate normal compressibility, augmentation, and color Doppler. The posterior tibial veins are patent. The saphenous vein appears free of thrombus. No Sauer's cyst or hematoma is seen. IMPRESSION: No evidence of DVT. DATA REPOSITORY:
== END 2019-06-07 03:22 ==
PROVIDERS: PCP Family Medicine; Visit Provider Family Medicine
DX: R60.0 Localized edema (principal)
CPT/HCPCS: 93971

== ENCOUNTER 2019-07-07 14:44 | Emergency (ER) | payer OTHER, SELFPAY ==
[2019-07-07 14:50] VITALS: BP 209/83; PULSE 77; RESP 14; TEMP 37; O2SAT 95
--- NOTE | 2019-07-07 14:59 | ED.GENADUL_ITS ---
Discharge Plan Disposition Patient Disposition: HOME Condition: Good Discharge Details Chief Complaint: Vascular Clinical Impression: Edema, Leg pain Primary Care Provider: Enrike Heredia ED Provider: Zainab Abel Home Meds and New Rx's Prescriptions: Continued ergocalciferol (vitamin D2) 1,250 mcg (50,000 unit) capsule 50,000 unit PO QWEEK Qty: 6 RF: 3 metoprolol succinate 100 mg tablet extended release 24 hr 100 mg PO DAILY Qty: 30 RF: 0 furosemide 20 mg tablet 20 mg PO DAILY Qty: 30 RF: 0 lisinopril 40 mg tablet 40 mg PO DAILY Qty: 90 RF: 3 Lantus U-100 Insulin 100 unit/mL solution 90 unit SC DAILY Qty: 100 RF: 12 (DME) BD Insulin Syringe 1 mL 26 x 1/2 syringe See Rx Instructions .ROUTE .MEDSUPPLY Qty: 100 RF: 8 pseudoephedrine HCl 30 mg tablet (abuse-resistant) 30 mg PO Q6H PRN (Reason: nasal congestion) Qty: 20 RF: 0 tramadol 50 mg tablet 50 mg PO BID PRN (Reason: pain) Qty: 10 RF: 0 nitroglycerin [Nitrostat] 0.4 MG tablet, sublingual 1 tab.sl Sublingual PRN Qty: 1 RF: 1 (DME) lancets 1 EACH misc 1 ea Miscellaneous TID Qty: 400 RF: 0 clotrimazole 1 % cream 1 applic TP BID RF: 0 prochlorperazine maleate 10 mg tablet 10 mg PO BID RF: 0 albuterol sulfate [ProAir HFA] 90 mcg/actuation HFA aerosol inhaler 2 puff Inhalation Q6H PRN PRN (Reason: shortness of breath or wheezing) Qty: 18 RF: 6 aspirin [Ecotrin Low Strength] 81 mg tablet,delayed release (DR/EC) 81 mg PO DAILY Qty: 90 RF: 3 atorvastatin 80 mg tablet 80 mg PO DAILY Qty: 90 RF: 3 clopidogrel [Plavix] 75 mg tablet 75 mg PO DAILY Qty: 90 RF: 3 ibuprofen 800 mg tablet 800 mg PO TID PRN PRN (Reason: pain) Qty: 180 RF: 3 insulin aspart U-100 [Novolog Flexpen U-100 Insulin] 100 unit/mL (3 mL) insulin pen See Rx Instructions subcut AC Qty: 15 RF: 6 isosorbide mononitrate 30 mg tablet extended release 24 hr 30 mg PO DAILY Qty: 90 RF: 3 metoprolol succinate [Toprol XL] 200 mg tablet extended release 24 hr 200 mg PO DAILY Qty: 90 RF: 3 Hold Instructions: Home Medication placed on hold at Doctor's office pantoprazole [Protonix] 40 mg tablet,delayed release (DR/EC) 40 mg PO DAILY Qty: 90 RF: 3 prazosin 2 mg capsule 6 mg PO HS Qty: 180 RF: 3 triamcinolone acetonide 0.5 % cream 1 applic TP BID Qty: 454 RF: 6 quetiapine 400 mg tablet 800 mg PO QHS Qty: 180 RF: 3 hydrochlorothiazide 25 mg tablet 25 mg PO DAILY Qty: 90 RF: 3 sertraline 100 mg tablet 200 mg PO DAILY RF: 0 methocarbamol 500 mg tablet 500 mg PO Q6H PRN (Reason: muscle spasm) Qty: 14 RF: 0 Discharge Instructions Instructions: Leg Pain (ED) Additional Instructions: Your ultrasound is reassuring without evidence of DVT today. Encourage rest, ice, elevation. Tylenol and/or ibuprofen as needed for discomfort. Please continue with Americo wrap to help with compression and swelling. I would like you to follow-up with your primary care this week for reevaluation. If you develop fever/chills, increased pain or other new/worsening symptom please seek care urgently once again. Her blood pressure is elevated today. I would like to have this reassessed by her primary care. Referrals: Enrike Heredia DO [Primary Care Provider] - Discharge Data Discharge Date/Time-TO BE ENTERED AT DEPARTURE: 07/07/19 16:36 Medical Decision Making <NASIR Nguyen - Last Filed: 07/08/19 09:37> Patient is a pleasant 54-year-old female presenting to complaint of left lower extremity discomfort. She was seen by her primary care approximately 1 month ago for the same. This was done via telehealth in the time of the COVID-19 pandemic. Patient subsequently underwent a ultrasound for DVT and no blood clot was noted. This was associated with antihypertensive medication which was decreased and Lasix was added. She is currently on 40 mg daily. States that she comes in today after having increasing discomfort starting yesterday. She reports that now the pain is up and she is having difficulty with ambulation. Has noted increased swelling in the lower foot and calf. She states that this is different than when she had her ultrasound 1 month ago. Has been fairly sedentary but states that she walks her dog daily. Denies any shortness of breath. No fevers or chills. No history of DVT. Patient is not anticoagulated. On exam, patient appears very anxious. She appears nontoxic. Breathing comfortably. Lungs are clear. Exam of the extremities concerning for bilateral lower extremity swelling, left greater than the right. She is tender with palpation circumferentially distal to the knee. No palpable cord, discoloration. She does have equal bilateral lower extremity pulses. Really concern for DVT at this time. We are able to obtain DVT ultrasound. Also consider potential increase in her lower extremity edema that has been being followed by primary care provider. FINDINGS: Left deep veins: Unremarkable. The common femoral, femoral, proximal profunda femoral and popliteal veins are patent without thrombus. Normal Doppler waveforms. Normal compressibility and/or augmentation response. Left superficial veins: Unremarkable. Saphenofemoral junction is patent without thrombus. Soft tissues: Soft tissue edema at the calf. IMPRESSION: No evidence of deep vein thrombosis. Discussed findings with the patient. Will place an Americo wrap to help with swelling. Encourage rest and elevation. Advised that she contact her primary care. She will continue with her Lasix will call them tomorrow to schedule f ollow-up appointment and to discuss potential changes in her medications. Is a seem to be worse with the patient is ambulation, I believe the compression hose and elevation will help with her symptoms and will hold off on increasing her medications at this time. We will try this with medical management first. She given return precautions. All questions and concerns were addressed she is agreement with plan patient blood pressure was notably lower at the time of discharge. I believe the initial elevation was associated with patient's severe anxiety. All of her questions and concerns were addressed and she is in agreement this plan. <NASIR Tai - Last Filed: 07/08/19 16:58> I was not involved in this patient's care HPI <NASIR Nguyen - Last Filed: 07/08/19 09:37> General Mode of arrival: ambulatory . Date/Time Provider Initiated Documentation: 07/07/19 14:59 . Limitations to Documentation: no limitations . Information obtained by: patient and RN notes reviewed . History of Present Illness 54 year old F presents to the emergency department with the chief complaint of LLE pain, described as moderate, with intensity rated at 7. Quality is described as aching, and is localized to the left and lower extremity. Patient reports no radiation. Patient started experiencing this day(s) and it has been constant. Immobilization improves symptom(s), Movement worsens symptoms . Patient notes no other symptoms.; denies chest pain, cough, fever/chills, nausea/vomiting, rash, shortness of breath and weakness. Patient did receive the following treatments prior to arrival, other (furosemide) Related Data Home Medications Medication Instructions Recorded Confirmed nitroglycerin [Nitrostat] 1 tab.sl SUBLINGUAL PRN #1 bottle 04/16/14 06/11/19 lancets #400 ea 05/03/14 06/11/19 clotrimazole 1 % topical cream 1 applic TP BID 01/16/19 06/11/19 prochlorperazine maleate 10 mg 10 mg PO BID 01/18/19 06/11/19 tablet lisinopril 40 mg tablet 40 mg PO DAILY #90 tab 01/24/19 06/11/19 albuterol sulfate 90 mcg/actuation 2 puff INHALATION Q6H PRN PRN #18 03/15/19 06/11/19 aerosol inhaler gm aspirin 81 mg tablet,delayed 81 mg PO DAILY #90 tab 03/15/19 06/11/19 release atorvastatin 80 mg tablet 80 mg PO DAILY #90 tab 03/15/19 06/11/19 clopidogrel 75 mg tablet 75 mg PO DAILY #90 tab 03/15/19 06/11/19 ibuprofen 800 mg tablet 800 mg PO TID PRN PRN #180 tab 03/15/19 06/11/19 insulin aspart U-100 100 unit/mL See Rx Instructions SUBCUT AC #15 03/15/19 06/11/19 (3 mL) subcutaneous pen ml isosorbide mononitrate 30 mg 30 mg PO DAILY #90 tab 03/15/19 06/11/19 tablet,extended release 24 hr metoprolol succinate 200 mg 200 mg PO DAILY #90 tab 03/15/19 06/11/19 tablet,extended release 24 hr pantoprazole 40 mg tablet,delayed 40 mg PO DAILY #90 tab-cap 03/15/19 06/11/19 release prazosin 2 mg capsule 6 mg PO HS #180 cap 03/15/19 06/11/19 triamcinolone acetonide 0.5 % 1 applic TP BID #454 gm 03/15/19 06/11/19 topical cream quetiapine 400 mg tablet 800 mg PO QHS #180 tab 03/18/19 06/11/19 ergocalciferol (vitamin D2) 1,250 50,000 unit PO QWEEK #6 cap 04/30/19 06/11/19 mcg (50,000 unit) capsule insulin glargine 100 unit/mL 90 unit SC DAILY #100 ml 05/06/19 06/11/19 subcutaneous solution insulin syringe-needle U-100 1 mL #100 each 05/06/19 06/11/19 26 x 1/2 pseudoephedrine HCl 30 mg tablet 30 mg PO Q6H PRN #20 tab 05/06/19 06/11/19 (abuse-resistant) methocarbamol 500 mg PO Q6H PRN #14 tab 05/12/19 06/11/19 sertraline 200 mg PO DAILY 05/12/19 06/11/19 tramadol 50 mg tablet 50 mg PO BID PRN #10 tab 05/21/19 06/11/19 furosemide 20 mg tablet 20 mg PO DAILY #30 tab 06/11/19 06/11/19 metoprolol succinate 100 mg 100 mg PO DAILY #30 tab 06/11/19 06/11/19 tablet,extended release 24 hr hydrochlorothiazide 25 mg tablet 25 mg PO DAILY #90 tab 06/20/19 Previous Rx's Medication Instructions Recorded lisinopril 40 mg tablet 40 mg PO DAILY #90 tab 01/24/19 albuterol sulfate 90 mcg/actuation 2 puff INHALATION Q6H PRN PRN #18 03/15/19 aerosol inhaler gm aspirin 81 mg tablet,delayed 81 mg PO DAILY #90 tab 03/15/19 release atorvastatin 80 mg tablet 80 mg PO DAILY #90 tab 03/15/19 clopidogrel 75 mg tablet 75 mg PO DAILY #90 tab 03/15/19 ibuprofen 800 mg tablet 800 mg PO TID PRN PRN #180 tab 03/15/19 insulin aspart U-100 100 unit/mL See Rx Instructions SUBCUT AC #15 01/31/20 (3 mL) subcutaneous pen ml isosorbide mononitrate 30 mg 30 mg PO DAILY #90 tab 03/15/19 tablet,extended release 24 hr metoprolol succinate 200 mg 200 mg PO DAILY #90 tab 03/15/19 tablet,extended release 24 hr pantoprazole 40 mg tablet,delayed 40 mg PO DAILY #90 tab-cap 03/15/19 release prazosin 2 mg capsule 6 mg PO HS #180 cap 03/15/19 triamcinolone acetonide 0.5 % 1 applic TP BID #454 gm 03/15/19 topical cream quetiapine 400 mg tablet 800 mg PO QHS #180 tab 03/18/19 ergocalciferol (vitamin D2) 1,250 50,000 unit PO QWEEK #6 cap 04/30/19 mcg (50,000 unit) capsule insulin glargine 100 unit/mL 90 unit SC DAILY #100 ml 05/06/19 subcutaneous solution insulin syringe-needle U-100 1 mL #100 each 05/06/19 26 x 1/2 pseudoephedrine HCl 30 mg tablet 30 mg PO Q6H PRN #20 tab 05/06/19 (abuse-resistant) methocarbamol 500 mg PO Q6H PRN #14 tab 05/12/19 tramadol 50 mg tablet 50 mg PO BID PRN #10 tab 05/21/19 furosemide 20 mg tablet 20 mg PO DAILY #30 tab 06/11/19 metoprolol succinate 100 mg 100 mg PO DAILY #30 tab 06/11/19 tablet,extended release 24 hr hydrochlorothiazide 25 mg tablet 25 mg PO DAILY #90 tab 06/20/19 Allergies Allergy/AdvReac Type Severity Reaction Status Date / Time levofloxacin [From Levaquin] Allergy Verified 07/07/19 14:56 Penicillins Allergy Verified 07/07/19 14:56 pioglitazone HCl [From Actos] Allergy Verified 07/07/19 14:56 gabapentin AdvReac so sick Verified 07/07/19 14:56 vomitting/headache metformin AdvReac DIARRHEA Verified 07/07/19 14:56 General Stated Complaint: Vascular TEETEE: 3 Review of Systems <NASIR Nguyen - Last Filed: 07/08/19 09:37> Constitutional Constitutional: Reports as per HPI, Denies chills, Denies fever(s), Denies headache(s), Denies lethargy and Denies poor appetite Eyes Eyes: Denies change in vision ENT Ears, Nose, Mouth, and Throat: Denies dizziness and Denies headache(s) Cardiovascular Cardiovascular: Reports as per HPI, Denies chest pain, Denies chest pain at rest, Denies dyspnea and Denies dyspnea on exertion Respiratory Respiratory: Reports as per HPI, Denies chest congestion, Denies cough, Denies pain on inspiration, Denies pain with cough, Denies dyspnea, Denies dyspnea on exertion and Denies wheezing Gastrointestinal Gastrointestinal: Reports as per HPI, Denies abdominal pain, Denies diarrhea, Denies nausea and Denies vomiting Musculoskeletal Musculoskeletal: Reports as per HPI and Denies back pain Integumentary/Breasts Skin/Breast: Reports as per HPI and Denies rash Neurologic Neurologic: Reports as per HPI, Denies dizziness and Denies headache(s) Allergic/Immunologic Allergic/Immunologic: Denies wheezing PFSH <NASIR Nguyen - Last Filed: 07/08/19 09:37> Medical History Alopecia (Acute) Anxiety (Acute 03/20/12) Carpal tunnel syndrome (Acute) left Chest pain (Acute 08/23/12) neg. MPI; esophageal spasm per UGI Chronic constipation (Acute) COPD (chronic obstructive pulmonary disease) (Chronic) Depressive disorder (Chronic 03/20/12) Dizziness (Inactive 03/20/12) Dysfunctional uterine bleeding (Inactive) Essential hypertension (Acute 11/15/12) Gastroparesis (Acute 04/17/14) DR. FOLEY-04/17/14 Hirsutism (Acute 03/20/12) Hyperlipidemia (Inactive) Hypertension (Chronic) Hypokalemia (Acute) Insomnia, unspecified (Inactive 03/20/12) Medial malleolar fracture (Acute 09/21/18) Migraine headache with aura (Acute) Migraine headache without aura (Acute) Narcolepsy without cataplexy (Acute) Non-alcoholic fatty liver disease (Acute 04/06/12) Onycholysis (Acute) Onychomycosis (Acute) ALEXA (obstructive sleep apnea) (Chronic) Papilloma of oral cavity (Acute) Personality disorder (Inactive) MULTIPLE Posttraumatic stress disorder (Acute 03/20/12) multiple admissions to care bed. Schizophrenia (Chronic) Smoker Syncope and collapse (Acute) Type II diabetes mellitus with complication, uncontrolled (Acute 01/22/14) Surgical History History of appendectomy (Chronic ~10/02/17) History of bilateral ligation of fallopian tubes (Inactive) History of section (Inactive) History of esophagogastroduodenoscopy (Inactive 01/03/14) History of right and left heart catheterization (Inactive) 03/30/15 & 05/15/17 - [facility] [place] Status post carpal tunnel release (Inactive ~2016) Left Status post cholecystectomy (Inactive) Social History Smoking/Tobacco Use Status: Current every day Tobacco Type: cigarettes Years smoked: 40 Alcohol Intake: current Alcohol Intake frequency: holidays/special occasions only Alcohol type: wine Drug use: Never Substance use type: does not use Adopted: No Caregiver/Support person: No Foster care: No Household members: none Number of Children: 2 Do you need help understanding health information?: Never current occupation: Disabled Pets and animals: Yes (Therapy dog) Sexually active: No Do you think of yourself as: straight/heterosexual Current gender identity: female What is your relationship status?: Panel score (0-1 are the most socially isolated patients): 0 Seatbelt use: never Do you feel safe at home: Yes Do you feel safe in your relationship?: Yes Exam <NASIR Nguyen - Last Filed: 07/08/19 09:37> Const General: cooperative, comfortable, no acute distress, well developed and anxious Nutritional Appearance: well nourished and overweight Orientation: alert, awake and oriented x3 HENMT Head: normal to inspection Ears: hearing grossly normal bilaterally Mouth: moist mucous membranes Chest Chest: normal inspection of the chest, normal palpation of entire chest wall and no crepitus Resp Effort & Inspection: normal respiratory effort, able to speak in complete sentences and no respiratory distress Auscultation: clear to auscultation bilaterally, no rales, no rhonchi and no wheezes Cardio Rate: regular rate Rhythm: regular rhythm Heart Sounds: S1 normal and S2 normal Back/Spine/Pelvis Back: no CVA tenderness Thoracic/Lumbar Spine: thoracic and lumbar spine normal to inspection Skin General skin exam: no rashes or lesions noted Trauma: no lacerations or abrasions Neuro General: patient alert, patient awake and patient oriented x3 Cognition: normal cognition Speech: speech normal Gait: normal gait Extrem General: normal to inspection, capillary refill normal, no joint enlargement, normal gait, calf tenderness on the left, no cyanosis and pedal edema (left greater than right) Psych Appearance: grossly normal and well kempt Mental Status: mental status grossly normal Speech and Movement: speech and movement normal Course <NASIR Nguyen - Last Filed: 07/08/19 09:37> Vital Signs Vital signs: Vital Signs Temperature 37.0 C 07/07/19 14:50 Pulse 77 07/07/19 14:50 Respiratory Rate 14 07/07/19 14:50 Blood Pressure 209/83 H 07/07/19 14:50 Pulse Oximetry 95 07/07/19 14:50 Temperature 37.0 C 07/07/19 14:50 Temperature Source Skin 07/07/19 14:50 Pulse 77 07/07/19 14:50 Respiratory Rate 14 07/07/19 14:50 Blood Pressure 209/83 H 07/07/19 14:50 Blood Pressure Position Sitting 07/07/19 14:50 Pulse Oximetry 95 07/07/19 14:50 Oxygen Delivery Method Room Air 07/07/19 14:50 Oxygen Flow Rate 0 07/07/19 14:50 Pain Level 7 07/07/19 14:50
--- NOTE | 2019-07-07 15:19 | DI.US_ITS ---
EXAM: US LOWER EXTREMITY VENOUS LT CLINICAL HISTORY: swelling, posterior calf pain. TECHNIQUE: Lower extremity venous ultrasound performed using grayscale, color-flow, and spectral Dop pler analysis. COMPARISON: No exams were available for comparison FINDINGS: The common femoral, femoral and popliteal veins demonstrate normal compressibility, augmentation, and color Doppler. The posterior tibial veins are patent. The saphenous vein appears free of thrombus. No Sauer's cyst or hematoma is seen. There is edema in the subcutaneous fat of the calf. IMPRESSION: No evidence of DVT. Calf edema. DATA REPOSITORY:
--- NOTE | 2019-07-07 16:16 | DI.VRAD_ITS ---
PROCEDURE INFORMATION: Exam: US Duplex Left Lower Extremity Veins, Limited Exam date and time: 07/07/2019 3:55 PM Age: 54 years old Clinical indication: Pain; Edema, localized; Lower extremity, left; Leg, lower TECHNIQUE: Imaging protocol: Real-time Duplex ultrasound of the Left Lower Extremity with 2-D triana scale, color Doppler flow and spectral waveform analysis with image documentation. Limited exam focused on the left lower extremity veins. COMPARISON: US LOWER EXTREMITY VENOUS LT 06/07/2019 10:47 AM FINDINGS: Left deep veins: Unremarkable. The common femoral, femoral, proximal profunda femoral and popliteal veins are patent without thrombus. Normal Doppler waveforms. Normal compressibility and/or augmentation response. Left superficial veins: Unremarkable. Saphenofemoral junction is patent without thrombus. Soft tissues: Soft tissue edema at the calf. IMPRESSION: No evidence of deep vein thrombosis. Dictated and Authenticated by: Malick Bedolla MD. Ordering:SANDRA Lamb MD
[2019-07-07 16:28] VITALS: BP 163/78; PULSE 75; RESP 16; TEMP 36.5; O2SAT 98
== END 2019-07-07 16:36 | disposition home or self-care (01) ==
PROVIDERS: Emergency Provider Physician Assistant; PCP Family Medicine
DX: R60.0 Localized edema (principal); M79.605 Pain in left leg; F41.9 Anxiety disorder, unspecified; I10 Essential (primary) hypertension; E11.9 Type 2 diabetes mellitus without complications; Z79.4 Long term (current) use of insulin; J44.9 Chronic obstructive pulmonary disease, unspecified
CPT/HCPCS: 80053; 99284; 85025; 85379; 85610; 85730; 93971; 99285

== ENCOUNTER 2019-07-15 09:07 | Outpatient (CLI) | payer OTHER, SELFPAY ==
--- NOTE | 2019-07-15 10:45 | DI.RAD_ITS ---
EXAM: XR ANKLE LT COMPLETE CLINICAL HISTORY: Swelling, pain below L knee, DVT ruled out,M79.606 TECHNIQUE: COMPARISON: CR XR ANKLE LT 2V from 09/27/2018 CR XR TIB/FIB LT from 07/15/2019 FINDINGS: Two views of the leg and three views of the ankle were obtained. No fracture is identified. Diffuse soft tissue swelling is noted. The ankle mortise appears well maintained. IMPRESSION: No specific bony abnormality seen.
--- NOTE | 2019-07-15 10:45 | DI.RAD_ITS ---
EXAM: XR FOOT LT COMPLETE CLINICAL HISTORY: Swelling, pain below L knee, DVT ruled out,M79.606 TECHNIQUE: COMPARISON: CR RIGHT FOOT COMPLETE from 10/19/2010 FINDINGS: Three views were obtained. There are prominent osteophytes at the sites of attachment of Achilles te ndon and plantar fascia on the calcaneus. There are mild degenerative changes of the IP joints. No other significant bony abnormality seen IMPRESSION:
== END 2019-07-15 09:27 ==
PROVIDERS: PCP Family Medicine; Visit Provider Family Medicine
DX: M79.662 Pain in left lower leg (principal); R22.42 Localized swelling, mass and lump, left lower limb; M79.89 Other specified soft tissue disorders; M25.775 Osteophyte, left foot
CPT/HCPCS: 73590; 73610; 73630

== ENCOUNTER 2019-08-06 11:07 | Outpatient (CLI) | payer OTHER, SELFPAY ==
--- NOTE | 2019-08-06 10:30 | DI.RAD_ITS ---
EXAM: XR FOOT LT COMPLETE CLINICAL HISTORY: pain TECHNIQUE: COMPARISON: CR XR FOOT LT COMPLETE from 07/15/2019 FINDINGS: Three views were obtained. There are prominent osteophytes of the plantar fascia and Achilles insert ions on the calcaneus. There are minimal degenerative changes of the joints of the midfoot and foref oot. No other bony or soft tissue seen. IMPRESSION:
== END 2019-08-06 11:27 ==
PROVIDERS: PCP Family Medicine; Referring Provider Family Medicine; Visit Provider Orthopaedic Surgery
DX: M79.672 Pain in left foot (principal); M19.072 Primary osteoarthritis, left ankle and foot; M25.772 Osteophyte, left ankle
CPT/HCPCS: 73630

== ENCOUNTER 2019-08-22 01:37 | Outpatient (CLI) | payer OTHER, SELFPAY ==
[2019-08-27 14:14] LABS: SS-A Antibody 1.1 Units (<20.0)
[2019-08-27 14:21] LABS: SS-B (La) Ab, IgG 1.4 Units (<20.0)
== END 2019-08-22 01:57 ==
PROVIDERS: PCP Family Medicine; Visit Provider Otolaryngology Otolaryngology/Facial Plastic Surgery
DX: R68.2 Dry mouth, unspecified (principal); H04.123 Dry eye syndrome of bilateral lacrimal glands
CPT/HCPCS: 36415; 86235

== ENCOUNTER 2019-08-26 09:27 | Day surgery (SDC) | payer OTHER, SELFPAY ==
[2019-08-26 09:35] VITALS: BP 183/95; PULSE 74; RESP 16; TEMP 36.2; O2SAT 97
[2019-08-26] MEDS: Lidocaine 2% Multi-Dose 50 ML VIAL (11:30)
--- NOTE | 2019-08-26 11:41 | W.PM.DSUDISC ---
Discharge Plan Disposition Patient Disposition: HOME Condition: Good Discharge Details Reason For Visit: Triger finger release LRF Attending Provider: Juan Snell Primary Care Provider: Enrike Heredia Home Meds and New Rx's Prescriptions: New hydrocodone-acetaminophen 5-325 mg tablet 1 tab PO Q6H PRN (Reason: pain) Qty: 7 RF: 0 Continued ergocalciferol (vitamin D2) 1,250 mcg (50,000 unit) capsule 50,000 unit PO QWEEK Qty: 6 RF: 3 prednisone 5 mg tablet 5 mg PO DAILY Qty: 30 RF: 1 lisinopril 40 mg tablet 40 mg PO DAILY Qty: 90 RF: 3 Lantus U-100 Insulin 100 unit/mL solution 90 unit SC DAILY Qty: 100 RF: 12 (DME) BD Insulin Syringe 1 mL 26 x 1/2 syringe See Rx Instructions .ROUTE .MEDSUPPLY Qty: 100 RF: 8 tramadol 50 mg tablet 50 mg PO Q8H MDD 150 mg PRN (Reason: pain) Qty: 15 RF: 0 nitroglycerin [Nitrostat] 0.4 MG tablet, sublingual 1 tab.sl Sublingual PRN Qty: 1 RF: 1 (DME) lancets 1 EACH misc 1 ea Miscellaneous TID Qty: 400 RF: 0 clotrimazole 1 % cream 1 applic TP BID RF: 0 prochlorperazine maleate 10 mg tablet 10 mg PO BID RF: 0 albuterol sulfate [ProAir HFA] 90 mcg/actuation HFA aerosol inhaler 2 puff Inhalation Q6H PRN PRN (Reason: shortness of breath or wheezing) Qty: 18 RF: 6 aspirin [Ecotrin Low Strength] 81 mg tablet,delayed release (DR/EC) 81 mg PO DAILY Qty: 90 RF: 3 atorvastatin 80 mg tablet 80 mg PO DAILY Qty: 90 RF: 3 Hold Instructions: Pt stopped d/t general muscle pain 03/16/2019 EO clopidogrel [Plavix] 75 mg tablet 75 mg PO DAILY Qty: 90 RF: 3 ibuprofen 800 mg tablet 800 mg PO TID PRN PRN (Reason: pain) Qty: 180 RF: 3 insulin aspart U-100 [Novolog Flexpen U-100 Insulin] 100 unit/mL (3 mL) insulin pen See Rx Instructions subcut AC Qty: 15 RF: 6 isosorbide mononitrate 30 mg tablet extended release 24 hr 30 mg PO DAILY Qty: 90 RF: 3 metoprolol succinate [Toprol XL] 200 mg tablet extended release 24 hr 200 mg PO DAILY Qty: 90 RF: 3 Hold Instructions: Home Medication placed on hold at Doctor's office pantoprazole [Protonix] 40 mg tablet,delayed release (DR/EC) 40 mg PO DAILY Qty: 90 RF: 3 prazosin 2 mg capsule 6 mg PO HS Qty: 180 RF: 3 triamcinolone acetonide 0.5 % cream 1 applic TP BID Qty: 454 RF: 6 quetiapine 400 mg tablet 800 mg PO QHS Qty: 180 RF: 3 hydrochlorothiazide 25 mg tablet 25 mg PO DAILY Qty: 90 RF: 3 sertraline 100 mg tablet 200 mg PO DAILY RF: 0 methocarbamol 500 mg tablet 500 mg PO Q6H PRN (Reason: muscle spasm) Qty: 14 RF: 0 Discharge Instructions Additional Instructions: Bend and straighten fingers of L hand 10 times/hour when awake to prevent swelling. Keep dressings dry and intact for 48 hours. Remove dressings after 48 hours. May then shower or bathe and get incision wet. Leave incision uncovered when it is dry and sealed. Take tylenol or ibuprofen for mild pain. Take hydrocodone for breakthru pain, if needed. Follow up with in 2 weeks. Referrals: Juan Snell MD [ [facility] STAFF PHYSICIAN] - (f/u in 2 weeks.) Activity:: Activity as Tolerated Remove Dressings/Wound Care:: 48 hours Shower/Bathe:: 48 hours Diet:: As Tolerated Discharge Orders Discharge Orders: Discharge Order (Routine); Ordered 08/26/19 Ordered By: Juan Snell DS: Diagnosis Discharge Diagnosis (1) Trigger finger, left ring finger: Status: Acute
--- NOTE | 2019-08-26 15:19 | W.PM.OP ---
Date of service: 08/26/19 Time of Service: 10:01 Operative Note Operative Note DATE OF PROCEDURE: 08/26/19 PRE-OP DIAGNOSIS: Trigger left ring finger POST-OP DIAGNOSIS: same PROCEDURE: Tendon sheath incision for trigger finger left ring finger SURGEON: Juan Snell ANESTHESIA: local PATHOLOGY: none sent COMPLICATIONS: None Patient was transported to: same day Patient's condition: stable Indications: Is a 54-year-old white female with a several month history of painful locking of her left ring finger. Initially this was intermittent and without significant pain. Is progressed to being pretty much constant with moderate discomfort every time she has to manually unlock her finger. Trigger finger release was recommended to alleviate her pain and restore good use to her finger. Risk and complication of procedure explained patient detail preop. Procedure Description: Patient was taken the operating room on 08/26/2019 play supine operating table. The left hand was prepped and draped free in usual sterile fashion. I infiltrated over the flexor sheath proximal elda of the left ring finger with 1% Xylocaine solution. I then made a transverse incision approximately 5 to 6 mm distal to the distal palmar flexion crease. Is approximately 2 cm to 2 and half centimeters in length and centered over the proximal elda of the flexor sheath. The incision was carried down through the skin and subcu. Particular the scissors were then used to spread the wound edges until the proximal elda was clearly seen. I then made a longitudinal incision the proximal elda with a scalpel. I completed the release of the proximal elda subcutaneously using Littler scissors. Patient was then asked to actively flex and extend her left ring finger. She was now able to flex and extend the left ring finger without locking or triggering. The wound was irrigated saline solution wound margins were infiltrated 0.5% Marcaine with epinephrine solution. The skin is approximated with 3 interrupted 4 nylon sutures. Wounds dressed with Xeroform gauze sterile gauze 4 x 4's wrapped with a 2 inch Elle bandage. Based on procedure well was discharged to the day surgery unit in good condition. Patient was discharged home from day surgery unit with instructions to keep her dressings dry and intact for 48 hours. After 48 hours she may remove her dressings shower bathing get her incision wet. She may leave the incision incision uncovered when it is dry and sealed. Should take Tylenol or ibuprofen for pain. She is encouraged to bend and straighten the fingers of her left hand 10 times an hour while awake to prevent stiffness and swelling. She should follow-up with Dr. Snell in 2 weeks
== END 2019-08-26 12:10 | disposition home or self-care (01) ==
PROVIDERS: PCP Family Medicine; Visit Provider Orthopaedic Surgery
PROC: (CPT 26055; principal; 2019-08-26 12:00)
DX: M65.342 Trigger finger, left ring finger (principal)
CPT/HCPCS: 26055

== ENCOUNTER 2019-09-10 12:08 | Outpatient (CLI) | payer OTHER, SELFPAY ==
--- NOTE | 2019-09-10 12:12 | DI.RAD_ITS ---
EXAM: XR ANKLE LT COMPLETE CLINICAL HISTORY: left foot pain after acute fall TECHNIQUE: 2D digital imaging was performed. COMPARISON: CR XR ANKLE LT COMPLETE from 07/15/2019 CR XR TIB/FIB LT from 07/15/2019 CR XR FOOT LT COMPLETE from 08/06/2019 FINDINGS: There is soft tissue swelling around both malleoli. No fracture or ankle mortise widening is seen. There is mild spurring at the malleoli. There are prominent heel spurs. No talar dome defect is s een. IMPRESSION: Soft tissue swelling and heel spurs.
== END 2019-09-10 12:28 ==
PROVIDERS: PCP Family Medicine; Referring Provider Family Medicine; Visit Provider Physician Assistant Surgical
DX: M77.32 Calcaneal spur, left foot (principal); M79.89 Other specified soft tissue disorders
CPT/HCPCS: 73610

== ENCOUNTER 2019-10-30 16:27 | Emergency (ER) | payer OTHER, SELFPAY ==
[2019-10-30] VITALS (22 sets, daily range): BP systolic 129–149; BP diastolic 65–84; PULSE 69–76; RESP 16–23; TEMP 37.2; O2SAT 90–98
[2019-10-30] MEDS: Normal Saline 1,000 ML 1000 ML IV (16:58)
[2019-10-30 17:05] LABS: Abs Immature Grans 0.05 10^3/uL (0.0-0.06); Absolute Basophil Count 0.06 10^3/uL (0.0-0.2); Absolute Eosinophil Count 0.15 10^3/uL (0.0-0.7); Absolute Lymphocyte Count 2.16 10^3/uL (1.2-3.4); Absolute Monocyte Count 0.58 10^3/uL (0.1-0.8); Absolute Neutrophil Count 5.77 10^3/uL (1.2-6.7); Basophils % 0.7; Eosinophils % 1.7; HCT 45.8 % (36.0-46.0); HGB 15.2 g/dL (11.2-15.7); Immature Grans % 0.6; Lymphocytes % 24.6; MCH 28.4 pg (27.0-33.0); MCHC 33.2 % (32.0-36.0); MCV 85.6 fL (80-95); Monocytes % 6.6; Neutrophils % 65.8; Nucleated RBC 0 %; Platelet Count 220 10^3/uL (130-400); RBC 5.35 10^6/uL (3.93-5.22); RDW 14.2 % (11.7-14.6); RDW-SD 44.4 fL; WBC 8.77 10^3/uL (4.4-10.8)
[2019-10-30 17:06] LABS: Bilirubin Negative (Negative); Blood Small (Negative); Clarity Clear (Clear); Glucose 500 mg/dL (Negative); Ketones Negative (Negative); Leukocyte Esterase Negative (Negative); Nitrite Negative (Negative); Urobilinogen 0.2 EU/dL (Up TO 0.2)
[2019-10-30 17:23] LABS: ALT 34 U/L (14-59); AST 21 U/L (15-37); Albumin 2.9 g/dL (3.4-5.0); Alkaline Phosphatase 85 U/L (46-116); Anion Gap 7.7 mmol/L (3-11); BUN 16 mg/dL (7-18); Bilirubin, Total 0.3 mg/dL (0.2-1.0); CO2 28.3 mmol/L (21.0-32.0); CREATININE 0.96 mg/dL (0.55-1.02); Calcium 9.3 mg/dL (8.5-10.1); Chloride 96 mmol/L (98-107); Glucose 444 mg/dL (74-106); Lipase 51 U/L (73-393); Sodium 132 mmol/L (136-145); Total Protein 7.1 g/dL (6.4-8.2)
[2019-10-30 17:28] LABS: Bacteria Few HPF (Negative); Casts Negative LPF (Negative); Crystals Negative HPF (Negative); Epithelial Cells Moderate HPF (Negative); Mucus Negative (Negative); RBC 0-2 HPF (0-2); WBC 0-2 HPF (0-5)
[2019-10-30 17:29] LABS: C & S Indicated? No/Sq. Contamination
--- NOTE | 2019-10-30 17:30 | DI.CT_ITS ---
EXAM: CT ABDOMEN PELVIS W CLINICAL HISTORY: llq pain, nausea, decreased hard bm TECHNIQUE: COMPARISON: CT ABD PELVIS WITH CONTRAST from 06/14/2017 FINDINGS: CT examination of the abdomen and pelvis was performed with bolus infusion 100 cc Omnipaque 350. Simran ges obtained through the lung bases are unremarkable The liver appears of mildly decreased attenuation consistent with hepatic steatosis. Prior cholecyst ectomy noted. No biliary dilatation. Spleen and pancreas appear normal. Adrenals appear normal bilaterally. Kidneys are unremarkable in appearance with no evidence of a mandie al mass, hydronephrosis, or nephrolithiasis. Abdominal aorta and major visceral branches appear normal except for minimal mural calcification of t he aorta. No significant abdominal wall hernia seen. No gross adenopathy in the abdomen or pelvis, a pre aorti c node is noted measuring 17 millimeters in diameter at the level of the upper pole of the left kidne y. Prior appendectomy noted. No evidence of bowel obstruction. There is an area of focal wall thickening and Livia colonic fat edema with an apparent inflamed divert iculum of the mid to distal descending colon. Findings are consistent with diverticulitis. No absce ss or perforation. No other focal colonic abnormality seen. Urinary bladder grossly unremarkable. [employer]st structures appear intact. IMPRESSION: Findings consistent with localized uncomplicated diverticulitis of the descending colon as described above. RADIATION DOSE DELIVERED: 1,482.18mGy.cm Total DLP
[2019-10-30] MEDS: Ondansetron 4 MG/2 ML VIAL IVP (17:44)
[2019-10-30] MEDS: Acetaminophen 325 MG TAB (17:56)
--- NOTE | 2019-10-30 18:27 | ED.GENADUL_ITS ---
Discharge Plan Disposition Patient Disposition: HOME Condition: Stable Discharge Details Clinical Impression: Diverticulitis Primary Care Provider: Enrike Heredia ED Provider: Luis Felipe Ocampo Home Meds and New Rx's Prescriptions: New sulfamethoxazole-trimethoprim [Bactrim DS] 800-160 mg tablet 1 tab PO BID 10 Days Qty: 20 RF: 0 metronidazole [Flagyl] 500 mg tablet 500 mg PO QID 10 Days Qty: 40 RF: 0 Continued ergocalciferol (vitamin D2) 1,250 mcg (50,000 unit) capsule 50,000 unit PO QWEEK Qty: 6 RF: 3 prednisone 5 mg tablet 5 mg PO DAILY Qty: 30 RF: 1 prazosin 2 mg capsule See Rx Instructions PO HS Qty: 360 RF: 3 lisinopril 40 mg tablet 40 mg PO DAILY Qty: 90 RF: 3 tramadol 50 mg tablet 50 mg PO Q8H MDD 150 mg PRN (Reason: pain) Qty: 15 RF: 0 nitroglycerin [Nitrostat] 0.4 MG tablet, sublingual 1 tab.sl Sublingual PRN Qty: 1 RF: 1 (DME) lancets 1 EACH misc 1 ea Miscellaneous TID Qty: 400 RF: 0 clotrimazole 1 % cream 1 applic TP BID RF: 0 prochlorperazine maleate 10 mg tablet 10 mg PO BID RF: 0 albuterol sulfate [ProAir HFA] 90 mcg/actuation HFA aerosol inhaler 2 puff Inhalation Q6H PRN PRN (Reason: shortness of breath or wheezing) Qty: 18 RF: 6 aspirin [Ecotrin Low Strength] 81 mg tablet,delayed release (DR/EC) 81 mg PO DAILY Qty: 90 RF: 3 atorvastatin 80 mg tablet 80 mg PO DAILY Qty: 90 RF: 3 Hold Instructions: Pt stopped d/t general muscle pain 03/16/2019 EO clopidogrel [Plavix] 75 mg tablet 75 mg PO DAILY Qty: 90 RF: 3 ibuprofen 800 mg tablet 800 mg PO TID PRN PRN (Reason: pain) Qty: 180 RF: 3 insulin aspart U-100 [Novolog Flexpen U-100 Insulin] 100 unit/mL (3 mL) insulin pen See Rx Instructions subcut AC Qty: 15 RF: 6 isosorbide mononitrate 30 mg tablet extended release 24 hr 30 mg PO DAILY Qty: 90 RF: 3 metoprolol succinate [Toprol XL] 200 mg tablet extended release 24 hr 200 mg PO DAILY Qty: 90 RF: 3 Hold Instructions: Home Medication placed on hold at Doctor's office pantoprazole [Protonix] 40 mg tablet,delayed release (DR/EC) 40 mg PO DAILY Qty: 90 RF: 3 triamcinolone acetonide 0.5 % cream 1 applic TP BID Qty: 454 RF: 6 quetiapine 400 mg tablet 800 mg PO QHS Qty: 180 RF: 3 hydrochlorothiazide 25 mg tablet 25 mg PO DAILY Qty: 90 RF: 3 Lantus Solostar U-100 Insulin 100 unit/mL (3 mL) insulin pen 10 unit SC DAILY PRNRF: 0 (DME) pen needle, diabetic [BD Ultra-Fine Lorraine Pen Needle] 32 gauge x 5/32 needle See Rx Instructions .ROUTE .MEDSUPPLY Qty: 10 RF: 0 hydrocodone-acetaminophen 5-325 mg tablet 1 tab PO Q6H PRN (Reason: pain) Qty: 7 RF: 0 sertraline 100 mg tablet 200 mg PO DAILY RF: 0 methocarbamol 500 mg tablet 500 mg PO Q6H PRN (Reason: muscle spasm) Qty: 14 RF: 0 Discharge Instructions Instructions: Diverticulitis (ED) Additional Instructions: Bactrim hand Flagyl as directed. Clear liquid diet, advance as tolerated. Please watch for new or worsening symptoms and return to the ER for any concerns. I do recommend reaching out your primary care provider tomorrow for prompt outpatient reevaluation. Medical Decision Making 54-year-old female with extensive past medical history presents complaining of lower abdominal pain, or hard stools, that began Pj and progressively worsening. Mild nausea, force herself to vomit one time. Clinically she appears well, nontoxic. Afebrile. Abdomen is soft, tender in the left lower quadrant but certainly nonsurgical appearing. Differential includes but not exc luded to diverticulitis, small bowel obstruction, constipation, UTI, pyelonephritis, renal colic, AAA, etc. Will obtain CBC, CMP, lipase, urinalysis, give IV fluid and reassess. White blood cell count of 8.77 hemoglobin 15.2 hematocrit 45.8 platelet count 220. Sodium 132 potassium 4.0 creatinine 0.96 with a GFR greater than 60. Glucose of 444. Patient is scheduled to take her medications for her diabetes when she gets home. Patient is awake, alert, neurologically intact, no signs of DKA. She is receiving 1 L IV fluid. Urinalysis reveals small blood, when reviewing previous urinalysis, hematuria does appear to be chronic. Given her age and multiple use, chronic hematuria, will obtain CT imaging with contrast for further evaluation. Patient has a Tylenol for her discomfort. We will also give IV Zofran for her mild nausea. CT imaging reveals acute diverticulitis of the lower descending colon. No associated abscess or perforation. Past work-up and CT imaging with patient. She has uncomplicated diverticulitis. Patient feels well enough to trial outpatient therapy, I believe this to be perfectly reasonable. We will give first dose of Flagyl and Bactrim now. Patient has an allergy to fluoroquinolones. Patient will take her scheduled diabetes medication as soon as she gets home. Patient appears well, nontoxic. We discussed staying well-hydrated, clear liquid diet, advancing as tolerated. I will provide her with outpatient diverticulitis discharge instructions. She was encouraged to return to the ER for new or worsening symptoms, otherwise contact her primary care provider tomorrow. Patient has no additional questions or concerns and would prefer going home versus observation admission to our facility. I do believe this to be a very reasonable disposition. Medical Records Medical records reviewed: Yes I reviewed the patient's medical records. Lab Data Lab results reviewed: Yes I reviewed the patient's lab results. Lab results narrative: Laboratory Tests Range/Units 10/30/19 10/30/19 10/30/19 17:00 17:00 17:00 WBC (4.4-10.8) 10^3/uL 8.77 RBC (3.93-5.22) 10^6/uL 5.35 H Hgb (11.2-15.7) g/dL 15.2 Hct (36.0-46.0) % 45.8 MCV (80-95) fL 85.6 MCH (27.0-33.0) pg 28.4 MCHC (32.0-36.0) % 33.2 RDW (11.7-14.6) % 14.2 Plt Count (130-400) 10^3/uL 220 MPV (8.0-11.0) fL 10.0 Immature Gran % 0.6 Neutrophils % 65.8 Lymphocytes % 24.6 Monocytes % 6.6 Eosinophils % 1.7 Basophils % 0.7 Nucleated RBC % % 0 Absolute Neutrophils (1.2-6.7) 10^3/uL 5.77 Absolute Lymphocytes (1.2-3.4) 10^3/uL 2.16 Absolute Monocytes (0.1-0.8) 10^3/uL 0.58 Absolute Eosinophils (0.0-0.7) 10^3/uL 0.15 Absolute Basophils (0.0-0.2) 10^3/uL 0.06 Sodium (136-145) mmol/L 132 L Potassium (3.5-5.1) mmol/L 4.0 Chloride (98-107) mmol/L 96 L Carbon Dioxide (21.0-32.0) mmol/L 28.3 Anion Gap (3-11) mmol/L 7.7 BUN (7-18) mg/dL 16 Creatinine (0.55-1.02) mg/dL 0.96 Estimated GFR/1.73 m2 (mL/min/1.73m2) >= 60.00 Glucose (74-106) mg/dL 444 H Calcium (8.5-10.1) mg/dL 9.3 Total Bilirubin (0.2-1.0) mg/dL 0.3 AST (15-37) U/L 21 ALT (14-59) U/L 34 Alkaline Phosphatase (46-116) U/L 85 Total Protein (6.4-8.2) g/dL 7.1 Albumin (3.4-5.0) g/dL 2.9 L Lipase (73-393) U/L 51 Urine Color (Yellow) Yellow Urine Clarity (Clear) Clear Urine pH (5-8) 5.0 Ur Specific [employer] (1.005-1.025) 1.020 Urine Protein (Negative) mg/dL 100 H Urine Ketones (Negative) mg/dL Negative Urine Blood (Negative) Small H Urine Nitrite (Negative) Negative Urine Bilirubin (Negative) Negative Urine Urobilinogen (Up TO 0.2) EU/dL 0.2 Ur Leukocyte Esterase (Negative) Negative Urine RBC (0-2) HPF 0-2 Urine WBC (0-5) HPF 0-2 Ur Epithelial Cells (Negative) HPF Moderate Urine Crystals (Negative) HPF Negative Urine Bacteria (Negative) HPF Few Urine Casts (Negative) LPF Negative Urine Mucus (Negative) Negative Ur Culture Indicated? No/sq. contamination Urine Glucose (Negative) mg/dL 500 H HPI General Mode of arrival: ambulatory . Date/Time Provider Initiated Documentation: 10/30/19 16:44 . Limitations to Documentation: no limitations . Information obtained by: patient . HPI Narrative: This is a 54-year-old female with significant past medical history that includes CAD, hypertension, current smoker, chronic low back pain, migraines, anxiety, schizophrenia, COPD, diabetes, presents to the ER for evaluation of left lower abdominal pain that radiates through into her back that began on Monday. She reports it was mild at the time it began but now it is getting moderately worse. She reports mild nausea, forced herself to vomit one time, otherwise no vomiting. She reports a temperature at home of 99.9. She reports that she is able to pass gas and still have bowel movements although her bowel movements are small and hard. She denies any chest pain, shortness of breath, body aches, flank pain, dysuria, hematuria, diarrhea, black tarry stools, bright red blood in her stools. She denies a history of diverticulosis. Reports that she had a colonoscopy a few years ago and revealed polyps but nothing else. Patient contacted her primary care provider today and was told to come to the ER for evaluation. Related Data Home Medications Medication Instructions Recorded Confirmed nitroglycerin [Nitrostat] 1 tab.sl SUBLINGUAL PRN #1 bottle 04/16/14 10/30/19 lancets #400 ea 05/03/14 10/30/19 clotrimazole 1 % topical cream 1 applic TP BID 01/16/19 10/30/19 prochlorperazine maleate 10 mg 10 mg PO BID 01/18/19 10/30/19 tablet lisinopril 40 mg tablet 40 mg PO DAILY #90 tab 01/24/19 10/30/19 albuterol sulfate 90 mcg/actuation 2 puff INHALATION Q6H PRN PRN #18 03/15/19 10/30/19 aerosol inhaler gm aspirin 81 mg tablet,delayed 81 mg PO DAILY #90 tab 03/15/19 10/30/19 release atorvastatin 80 mg tablet 80 mg PO DAILY #90 tab 03/15/19 10/30/19 clopidogrel 75 mg tablet 75 mg PO DAILY #90 tab 03/15/19 10/30/19 ibuprofen 800 mg tablet 800 mg PO TID PRN PRN #180 tab 03/15/19 10/30/19 insulin aspart U-100 100 unit/mL See Rx Instructions SUBCUT AC #15 03/15/19 10/30/19 (3 mL) subcutaneous pen ml isosorbide mononitrate 30 mg 30 mg PO DAILY #90 tab 03/15/19 10/30/19 tablet,extended release 24 hr metoprolol succinate 200 mg 200 mg PO DAILY #90 tab 03/15/19 10/30/19 tablet,extended release 24 hr pantoprazole 40 mg tablet,delayed 40 mg PO DAILY #90 tab-cap 03/15/19 10/30/19 release triamcinolone acetonide 0.5 % 1 applic TP BID #454 gm 03/15/19 10/30/19 topical cream quetiapine 400 mg tablet 800 mg PO QHS #180 tab 03/18/19 10/30/19 ergocalciferol (vitamin D2) 1,250 50,000 unit PO QWEEK #6 cap 04/30/19 10/30/19 mcg (50,000 unit) capsule methocarbamol 500 mg PO Q6H PRN #14 tab 05/12/19 09/10/19 sertraline 200 mg PO DAILY 05/12/19 10/30/19 hydrochlorothiazide 25 mg tablet 25 mg PO DAILY #90 tab 06/20/19 10/30/19 tramadol 50 mg tablet 50 mg PO Q8H PRN #15 tab MDD 150 mg 07/11/19 10/30/19 prednisone 5 mg tablet 5 mg PO DAILY #30 tab 08/06/19 09/10/19 hydrocodone-acetaminophen 1 tab PO Q6H PRN #7 tab 08/26/19 10/30/19 prazosin 2 mg capsule See Rx Instructions PO HS #360 cap 08/29/19 10/30/19 insulin glargine 100 unit/mL (3 10 unit SC DAILY PRN 09/16/19 10/30/19 mL) subcutaneous pen pen needle, diabetic 32 gauge x #10 each 09/16/19 10/30/19 metronidazole [Flagyl] 500 mg PO QID 10 Days #40 tab 10/30/19 sulfamethoxazole-trimethoprim 1 tab PO BID 10 Days #20 tab 10/30/19 [Bactrim DS] Previous Rx's Medication Instructions Recorded lisinopril 40 mg tablet 40 mg PO DAILY #90 tab 01/24/19 albuterol sulfate 90 mcg/actuation 2 puff INHALATION Q6H PRN PRN #18 03/15/19 aerosol inhaler gm aspirin 81 mg tablet,delayed 81 mg PO DAILY #90 tab 03/15/19 release atorvastatin 80 mg tablet 80 mg PO DAILY #90 tab 03/15/19 clopidogrel 75 mg tablet 75 mg PO DAILY #90 tab 03/15/19 ibuprofen 800 mg tablet 800 mg PO TID PRN PRN #180 tab 03/15/19 insulin aspart U-100 100 unit/mL See Rx Instructions SUBCUT AC #15 03/15/19 (3 mL) subcutaneous pen ml isosorbide mononitrate 30 mg 30 mg PO DAILY #90 tab 03/15/19 tablet,extended release 24 hr metoprolol succinate 200 mg 200 mg PO DAILY #90 tab 03/15/19 tablet,extended release 24 hr pantoprazole 40 mg tablet,delayed 40 mg PO DAILY #90 tab-cap 03/15/19 release triamcinolone acetonide 0.5 % 1 applic TP BID #454 gm 03/15/19 topical cream quetiapine 400 mg tablet 800 mg PO QHS #180 tab 03/18/19 ergocalciferol (vitamin D2) 1,250 50,000 unit PO QWEEK #6 cap 04/30/19 mcg (50,000 unit) capsule methocarbamol 500 mg PO Q6H PRN #14 tab 05/12/19 hydrochlorothiazide 25 mg tablet 25 mg PO DAILY #90 tab 06/20/19 tramadol 50 mg tablet 50 mg PO Q8H PRN #15 tab MDD 150 mg 07/11/19 prednisone 5 mg tablet 5 mg PO DAILY #30 tab 08/06/19 hydrocodone-acetaminophen 1 tab PO Q6H PRN #7 tab 08/26/19 prazosin 2 mg capsule See Rx Instructions PO HS #360 cap 08/29/19 pen needle, diabetic 32 gauge x #10 each 09/16/19 metronidazole [Flagyl] 500 mg PO QID 10 Days #40 tab 10/30/19 sulfamethoxazole-trimethoprim 1 tab PO BID 10 Days #20 tab 10/30/19 [Bactrim DS] Allergies Allergy/AdvReac Type Severity Reaction Status Date / Time levofloxacin [From Levaquin] Allergy Verified 10/30/19 17:00 Penicillins Allergy Verified 10/30/19 17:00 pioglitazone HCl [From Actos] Allergy Verified 10/30/19 17:00 gabapentin AdvReac so sick Verified 10/30/19 17:00 vomitting/headache metformin AdvReac DIARRHEA Verified 10/30/19 17:00 General Stated Complaint: Abd Prob TEETEE: 3 Review of Systems Constitutional Constitutional: Denies fatigue, Reports fever(s) and Reports headache(s) ENT Ears, Nose, Mouth, and Throat: Reports headache(s) and Denies neck pain Cardiovascular Cardiovascular: Denies chest pain and Denies dyspnea Respiratory Respiratory: Denies cough and Denies dyspnea Gastrointestinal Gastrointestinal: Reports abdominal pain, Denies diarrhea, Reports nausea and Reports vomiting Genitourinary Genitourinary: Denies dysuria Musculoskeletal Musculoskeletal: Reports back pain and Denies neck pain Integumentary/Breasts Skin/Breast: Denies rash Neurologic Neurologic: Reports headache(s) Endocrine Endocrine: Denies fatigue Hematologic/Lymphatic Hematologic/Lymphatic: Reports easy bleeding and Reports easy bruising [facility] Medical History Alopecia Anxiety (03/20/12) Carpal tunnel syndrome left Chest pain (08/23/12) neg. MPI; esophageal spasm per UGI Chronic constipation COPD (chronic obstructive pulmonary disease) Coronary artery disease Depressive disorder (03/20/12) Dizziness (03/20/12) Dysfunctional uterine bleeding Essential hypertension (11/15/12) Gastroparesis (04/17/14) DR. FOLEY-04/17/14 Hirsutism (03/20/12) Hyperlipidemia Hypertension Hypokalemia Insomnia, unspecified (03/20/12) Medial malleolar fracture (09/21/18) Migraine headache with aura Migraine headache without aura Narcolepsy without cataplexy Non-alcoholic fatty liver disease (04/06/12) Onycholysis Onychomycosis Orthostasis ALEXA (obstructive sleep apnea) Papilloma of oral cavity Personality disorder MULTIPLE Posttraumatic stress disorder (03/20/12) multiple admissions to care bed. Schizophrenia Smoker Syncope and collapse Type II diabetes mellitus with complication, uncontrolled (01/22/14) Surgical History History of appendectomy (~10/02/17) History of bilateral ligation of fallopian tubes History of section History of esophagogastroduodenoscopy (01/03/14) History of right and left heart catheterization 03/30/15 & 05/15/17 - [facility] [place] Status post carpal tunnel release (~2016) Left Status post cholecystectomy Family History Mother Substance abuse Diabetes Heart disease Hypertension Father Substance abuse Diabetes Heart disease Hypertension Sister Cancer Heart disease Social History Smoking/Tobacco Use Status: Current every day Tobacco Type: cigarettes Years smoked: 40 Alcohol Intake: current Alcohol Intake frequency: holidays/special occasions only Alcohol type: wine Drug use: Never Substance use type: does not use Adopted: No Caregiver/Support person: No Foster care: No Household members: none Number of Children: 2 Do you need help understanding health information?: Never current occupation: Disabled Pets and animals: Yes (Therapy dog) Sexually active: No Do you think of yourself as: straight/heterosexual Current gender identity: female What is your relationship status?: Panel score (0-1 are the most socially isolated patients): 0 Seatbelt use: never Do you feel safe at home: Yes Do you feel safe in your relationship?: Yes Exam Const General: cooperative, healthy appearing, comfortable and no acute distress Orientation: alert, awake and oriented x3 HENMT Head: normal to inspection, normocephalic and atraumatic Mouth: moist mucous membranes Throat: posterior oropharynx normal Eyes Conjunctivae: conjunctivae normal Sclera: sclerae normal Neck Neck: normal visual inspection, full ROM, trachea midline and supple Resp Effort & Inspection: normal respiratory effort and able to speak in complete sentences Auscultation: diminished lung sounds bilaterally (Bases) and wheezes (Rare, scattered. Mostly clear with coughing) Cardio Rate: regular rate Rhythm: regular rhythm GI Inspection: normal to inspection Palpation: soft, not firm, no guarding, not rigid and tender in the LLQ; with no rebound tenderness Auscultation: normal bowel sounds Back/Spine/Pelvis Back: back tenderness (Diffuse mild lumbar) Skin General skin exam: no rashes or lesions noted Neuro General: patient alert, patient awake, moves all extremities and no focal motor deficits Cognition: normal cognition Speech: speech normal Gait: normal gait Motor: muscle tone normal throughout Sensory Exam: no sensory deficits noted Psych Appearance: grossly normal Mental Status: mental status grossly normal Course Vital Signs Vital signs: Vital Signs Temperature 37.2 C 10/30/19 16:35 Pulse 76 10/30/19 16:35 Respiratory Rate 16 10/30/19 16:35 Blood Pressure 149/84 H 10/30/19 16:35 Pulse Oximetry 97 10/30/19 16:35 Temperature 37.2 C 10/30/19 16:35 Temperature Source Oral 10/30/19 16:35 Pulse 70 10/30/19 17:46 Pulse 70 10/30/19 17:50 Respiratory Rate 23 10/30/19 17:50 Respiratory Effort Non-Labored 10/30/19 16:38 Blood Pressure 134/66 10/30/19 17:46 Blood Pressure Mean 76 10/30/19 17:46 Blood Pressure Position Sitting 10/30/19 16:35 Pulse Oximetry 92 10/30/19 17:50 Oxygen Delivery Method Room Air 10/30/19 16:35 Oxygen Flow Rate 0 10/30/19 16:35 Pain Level 8 10/30/19 16:35 Lab/Test Results Lab/Test Results: Laboratory Tests Range/Units 10/30/19 10/30/19 10/30/19 17:00 17:00 17:00 WBC (4.4-10.8) 10^3/uL 8.77 RBC (3.93-5.22) 10^6/uL 5.35 H Hgb (11.2-15.7) g/dL 15.2 Hct (36.0-46.0) % 45.8 MCV (80-95) fL 85.6 MCH (27.0-33.0) pg 28.4 MCHC (32.0-36.0) % 33.2 RDW (11.7-14.6) % 14.2 Plt Count (130-400) 10^3/uL 220 MPV (8.0-11.0) fL 10.0 Immature Gran % 0.6 Neutrophils % 65.8 Lymphocytes % 24.6 Monocytes % 6.6 Eosinophils % 1.7 Basophils % 0.7 Nucleated RBC % % 0 Absolute Neutrophils (1.2-6.7) 10^3/uL 5.77 Absolute Lymphocytes (1.2-3.4) 10^3/uL 2.16 Absolute Monocytes (0.1-0.8) 10^3/uL 0.58 Absolute Eosinophils (0.0-0.7) 10^3/uL 0.15 Absolute Basophils (0.0-0.2) 10^3/uL 0.06 Sodium (136-145) mmol/L 132 L Potassium (3.5-5.1) mmol/L 4.0 Chloride (98-107) mmol/L 96 L Carbon Dioxide (21.0-32.0) mmol/L 28.3 Anion Gap (3-11) mmol/L 7.7 BUN (7-18) mg/dL 16 Creatinine (0.55-1.02) mg/dL 0.96 Estimated GFR/1.73 m2 (mL/min/1.73m2) >= 60.00 Glucose (74-106) mg/dL 444 H Calcium (8.5-10.1) mg/dL 9.3 Total Bilirubin (0.2-1.0) mg/dL 0.3 AST (15-37) U/L 21 ALT (14-59) U/L 34 Alkaline Phosphatase (46-116) U/L 85 Total Protein (6.4-8.2) g/dL 7.1 Albumin (3.4-5.0) g/dL 2.9 L Lipase (73-393) U/L 51 Urine Color (Yellow) Yellow Urine Clarity (Clear) Clear Urine pH (5-8) 5.0 Ur Specific [employer] (1.005-1.025) 1.020 Urine Protein (Negative) mg/dL 100 H Urine Ketones (Negative) mg/dL Negative Urine Blood (Negative) Small H Urine Nitrite (Negative) Negative Urine Bilirubin (Negative) Negative Urine Urobilinogen (Up TO 0.2) EU/dL 0.2 Ur Leukocyte Esterase (Negative) Negative Urine RBC (0-2) HPF 0-2 Urine WBC (0-5) HPF 0-2 Ur Epithelial Cells (Negative) HPF Moderate Urine Crystals (Negative) HPF Negative Urine Bacteria (Negative) HPF Few Urine Casts (Negative) LPF Negative Urine Mucus (Negative) Negative Ur Culture Indicated? No/sq. contamination Urine Glucose (Negative) mg/dL 500 H
[2019-10-30] MEDS: Omnipaque 350 MG/ML 100 ML BTL IJ (18:31)
[2019-10-30] MEDS: Normal Saline - Diluent 50 ML VIAL IV (18:33)
--- NOTE | 2019-10-30 18:57 | DI.VRAD_ITS ---
PROCEDURE INFORMATION: Exam: CT Abdomen And Pelvis With Contrast Exam date and time: 10/30/2019 6:31 PM Age: 54 years old Clinical indication: Nausea and vomiting; Abdominal pain; Prior surgery; appy, tegan, Other procedure information: c-the sections TECHNIQUE: Imaging protocol: Computed tomography of the abdomen and pelvis with intravenous contrast. COMPARISON: CT ABD PELVIS WITH CONTRAST 06/14/2017 1:04 PM FINDINGS: Lungs: No acute infiltrate in either lung base. Liver: Liver fatty infiltration. Gallbladder and bile ducts: Status post cholecystectomy. No biliary tract dilatation. Pancreas: Normal. No ductal dilation. Spleen: Normal. No splenomegaly. Adrenals: Normal. No mass. Kidneys and ureters: Normal. No hydronephrosis. Stomach and bowel: Mural thickening of the lower descending colon colon with associated scattered diverticula and infiltration / stranding of the pericolonic fat consistent with acute diverticulitis. No associated abscess or perforation. Appendix: Prior appendectomy. Intraperitoneal space: Trace free fluid in the left paracolic gutter. No intraperitoneal free air. Vasculature: Coronary artery calcification. Lymph nodes: Lymph node within the upper retroperitoneum measuring 15 mm transversely on axial images 29-30, series 4. Bladder: Unremarkable as visualized. Reproductive: Unremarkable as visualized. Bones/joints: Spinal degenerative changes. Soft tissues: Small fat-containing umbilical hernia. IMPRESSION: Acute diverticulitis of the lower descending colon. No associated abscess or perforation. Dictated and Authenticated by: Lj Hall MD. Ordering:CATRACHITO Briscoe MD
[2019-10-30] MEDS: Sulfameth/Trimeth DS TAB 1 TAB PO (19:32)
[2019-10-30] MEDS: metroNIDAZOLE 500 MG TAB PO (19:33)
== END 2019-10-30 19:52 | disposition home or self-care (01) ==
PROVIDERS: Emergency Provider Physician Assistant; PCP Family Medicine
DX: K57.32 Diverticulitis of large intestine without perforation or abscess without bleeding (principal); R11.0 Nausea; I10 Essential (primary) hypertension; E11.65 Type 2 diabetes mellitus with hyperglycemia; Z79.4 Long term (current) use of insulin; J44.9 Chronic obstructive pulmonary disease, unspecified; F17.210 Nicotine dependence, cigarettes, uncomplicated
CPT/HCPCS: 36415; 80053; 83690; 96361; 96374; 99285; 74177; 81003; 81015; 85025; J2405; J3490

== ENCOUNTER 2019-11-12 15:53 | Emergency (ER) | payer OTHER, SELFPAY ==
[2019-11-12] VITALS (8 sets, daily range): BP systolic 134–150; BP diastolic 69–97; PULSE 80–116; RESP 16–24; TEMP 37; O2SAT 91–95
--- NOTE | 2019-11-12 16:00 | RT.EKG_ITS ---
APPROVED REPORT Exam: Resting ECG Patient Location: E HR:103 bpm ECG Measurements Heart Rate 103 AXIS OR 165 P 23 QRSd 113 QRS -14 QT 385 T 62 QTc 504 Conclusion Sinus tachycardia. Probable left ventricular hypertrophy. Inferior infarct, old
--- NOTE | 2019-11-12 16:30 | DI.RAD_ITS ---
EXAM: XR CHEST 2V PA LATERAL CLINICAL HISTORY: Tachycardia, dizziness TECHNIQUE: 2D digital imaging was performed. COMPARISON: CR,XR XR CHEST 2V PA LATERAL from 05/12/2019 FINDINGS: MEDIASTINUM: Normal. HEART: Normal. PULMONARY VASCULATURE: Normal. LUNGS: Clear. PLEURAL SPACE: No pleural effusion or pneumothorax. BONE:Within normal limits for the patient's age. OTHER FINDINGS:Normal. IMPRESSION: No acute pulmonary findings. DATA REPOSITORY: RADIATION DOSE DELIVERED:
--- NOTE | 2019-11-12 16:34 | W.ED.GENAD ---
Discharge Plan Disposition Patient Disposition: HOME Condition: Improving Discharge Details Clinical Impression: Chronic hyponatremia Primary Care Provider: Enrike Heredia ED Provider: Juan Calderon Home Meds and New Rx's Prescriptions: Continued ergocalciferol (vitamin D2) 1,250 mcg (50,000 unit) capsule 50,000 unit PO QWEEK Qty: 6 RF: 3 prednisone 5 mg tablet 5 mg PO DAILY Qty: 30 RF: 1 prazosin 2 mg capsule See Rx Instructions PO HS Qty: 360 RF: 3 lisinopril 40 mg tablet 40 mg PO DAILY Qty: 90 RF: 3 tramadol 50 mg tablet 50 mg PO Q8H MDD 150 mg PRN (Reason: pain) Qty: 15 RF: 0 nitroglycerin [Nitrostat] 0.4 MG tablet, sublingual 1 tab.sl Sublingual PRN Qty: 1 RF: 1 (DME) lancets 1 EACH misc 1 ea Miscellaneous TID Qty: 400 RF: 0 clotrimazole 1 % cream 1 applic TP BID RF: 0 prochlorperazine maleate 10 mg tablet 10 mg PO BID RF: 0 albuterol sulfate [ProAir HFA] 90 mcg/actuation HFA aerosol inhaler 2 puff Inhalation Q6H PRN PRN (Reason: shortness of breath or wheezing) Qty: 18 RF: 6 aspirin [Ecotrin Low Strength] 81 mg tablet,delayed release (DR/EC) 81 mg PO DAILY Qty: 90 RF: 3 atorvastatin 80 mg tablet 80 mg PO DAILY Qty: 90 RF: 3 Hold Instructions: Pt stopped d/t general muscle pain 03/16/2019 EO clopidogrel [Plavix] 75 mg tablet 75 mg PO DAILY Qty: 90 RF: 3 ibuprofen 800 mg tablet 800 mg PO TID PRN PRN (Reason: pain) Qty: 180 RF: 3 insulin aspart U-100 [Novolog Flexpen U-100 Insulin] 100 unit/mL (3 mL) insulin pen See Rx Instructions subcut AC Qty: 15 RF: 6 isosorbide mononitrate 30 mg tablet extended release 24 hr 30 mg PO DAILY Qty: 90 RF: 3 metoprolol succinate [Toprol XL] 200 mg tablet extended release 24 hr 200 mg PO DAILY Qty: 90 RF: 3 Hold Instructions: Home Medication placed on hold at Doctor's office pantoprazole [Protonix] 40 mg tablet,delayed release (DR/EC) 40 mg PO DAILY Qty: 90 RF: 3 triamcinolone acetonide 0.5 % cream 1 applic TP BID Qty: 454 RF: 6 quetiapine 400 mg tablet 800 mg PO QHS Qty: 180 RF: 3 hydrochlorothiazide 25 mg tablet 25 mg PO DAILY Qty: 90 RF: 3 Lantus Solostar U-100 Insulin 100 unit/mL (3 mL) insulin pen 10 unit SC DAILY PRNRF: 0 (DME) pen needle, diabetic [BD Ultra-Fine Lorraine Pen Needle] 32 gauge x 5/32 needle See Rx Instructions .ROUTE .MEDSUPPLY Qty: 10 RF: 0 clotrimazole 10 mg vicky 10 mg mucous membrane TID PRN (Reason: Until thrush resolved) Qty: 20 RF: 0 hydrocodone-acetaminophen 5-325 mg tablet 1 tab PO Q6H PRN (Reason: pain) Qty: 7 RF: 0 sertraline 100 mg tablet 200 mg PO DAILY RF: 0 methocarbamol 500 mg tablet 500 mg PO Q6H PRN (Reason: muscle spasm) Qty: 14 RF: 0 Discharge Instructions Instructions: Hyponatremia (ED) Additional Instructions: You have chronic hyponatremia which is again redemonstrated today. You would benefit from a slight increase in salty foods. As discussed, we recommended further evaluation today which you have declined. Return at any time for reevaluation. Continue your regularly prescribed medications. Medical Decision Making 54-year-old female presents from home with complaint of tachycardia, weakness and lightheadedness with rising at home. She will also note 2 days of loose, watery foul-smelling stool. She was recently treated for diverticulitis with a course of antibiotics. She also has been treated for an oral thrush. She is afebrile with blood pressure 135/69 pulse ranges 99-115. IV placed and patient given oral fluids. She is referred for laboratory testing, chest x-ray. She has chronic hyponatremia redemonstrated again today with a sodium of 131. BUN is 13 and creatinine 0.7. Glucose somewhat elevated at 322 but no evidence of anion gap. Troponin negative, BNP 174. Chest x-ray without acute findings. Following initial round of blood work and chest x-ray, patient states she felt improved and requested discharge. I recommended further observation including repeat troponin which she declined. I do not feel she needs to sign out AGAINST MEDICAL ADVICE. She understands indications to seek return and repeat evaluation. Lab Data Lab results reviewed: Yes I reviewed the patient's lab results. Labs: Laboratory Results - last 24 hr 11/12/19 11/12/19 16:30 16:30 WBC 8.21 RBC 5.31 H Hgb 15.0 Hct 45.5 MCV 85.7 MCH 28.2 MCHC 33.0 RDW 13.7 Plt Count 215 MPV 10.5 Immature Gran % 0.5 Neutrophils % 66.0 Lymphocytes % 25.7 Monocytes % 6.0 Eosinophils % 1.1 Basophils % 0.7 Nucleated RBC % 0 Absolute Neutrophils 5.42 Absolute Lymphocytes 2.11 Absolute Monocytes 0.49 Absolute Eosinophils 0.09 Absolute Basophils 0.06 Sodium 131 L Potassium 5.0 Chloride 95 L Carbon Dioxide 27.7 Anion Gap 8.3 BUN 13 Creatinine 0.73 Estimated GFR/1.73 m2 >= 60.00 Glucose 322 H Calcium 9.1 Magnesium 1.9 Total Bilirubin 0.5 AST 61 H ALT 41 Alkaline Phosphatase 63 Troponin I < 0.05 NT-Pro-B Natriuret Pep 174 Total Protein 7.3 Albumin 3.1 L HPI General Mode of arrival: ambulatory. Date/Time Provider Initiated Documentation: 11/12/19 16:06. Limitations to Documentation: no limitations. Information obtained by: patient. History of Present Illness 54 year old F presents to the emergency department with the chief complaint of Day 2 of fast heart rate and lightheadedness with rising and exertion, described as moderate, and is localized to the chest. Patient reports no radiation. Patient started experiencing this day(s) and it has been intermittent. No relieving factors improve symptom(s), No exacerbating factors reported . Patient notes loss of appetite and other (Diarrhea. Recently diagnosed with thrush); denies nausea/vomiting. Patient did receive the following treatments prior to arrival, other (Taking lozenges for thrush) Related Data Home Medications Medication Instructions Recorded Confirmed nitroglycerin [Nitrostat] 1 tab.sl SUBLINGUAL PRN #1 bottle 04/16/14 11/12/19 lancets #400 ea 05/03/14 11/12/19 clotrimazole 1 % topical cream 1 applic TP BID 01/16/19 11/12/19 prochlorperazine maleate 10 mg 10 mg PO BID 01/18/19 11/12/19 tablet lisinopril 40 mg tablet 40 mg PO DAILY #90 tab 01/24/19 11/12/19 albuterol sulfate 90 mcg/actuation 2 puff INHALATION Q6H PRN PRN #18 03/15/19 11/12/19 aerosol inhaler gm aspirin 81 mg tablet,delayed 81 mg PO DAILY #90 tab 03/15/19 11/12/19 release atorvastatin 80 mg tablet 80 mg PO DAILY #90 tab 03/15/19 11/12/19 clopidogrel 75 mg tablet 75 mg PO DAILY #90 tab 03/15/19 11/12/19 ibuprofen 800 mg tablet 800 mg PO TID PRN PRN #180 tab 03/15/19 11/12/19 insulin aspart U-100 100 unit/mL See Rx Instructions SUBCUT AC #15 03/15/19 11/12/19 (3 mL) subcutaneous pen ml isosorbide mononitrate 30 mg 30 mg PO DAILY #90 tab 03/15/19 11/12/19 tablet,extended release 24 hr metoprolol succinate 200 mg 200 mg PO DAILY #90 tab 03/15/19 11/12/19 tablet,extended release 24 hr pantoprazole 40 mg tablet,delayed 40 mg PO DAILY #90 tab-cap 03/15/19 11/12/19 release triamcinolone acetonide 0.5 % 1 applic TP BID #454 gm 03/15/19 11/12/19 topical cream quetiapine 400 mg tablet 800 mg PO QHS #180 tab 03/18/19 11/12/19 ergocalciferol (vitamin D2) 1,250 50,000 unit PO QWEEK #6 cap 04/30/19 11/12/19 mcg (50,000 unit) capsule methocarbamol 500 mg PO Q6H PRN #14 tab 05/12/19 11/12/19 sertraline 200 mg PO DAILY 05/12/19 11/12/19 hydrochlorothiazide 25 mg tablet 25 mg PO DAILY #90 tab 06/20/19 11/12/19 tramadol 50 mg tablet 50 mg PO Q8H PRN #15 tab MDD 150 mg 07/11/19 11/12/19 prednisone 5 mg tablet 5 mg PO DAILY #30 tab 08/06/19 11/12/19 hydrocodone-acetaminophen 1 tab PO Q6H PRN #7 tab 08/26/19 11/12/19 prazosin 2 mg capsule See Rx Instructions PO HS #360 cap 08/29/19 11/12/19 insulin glargine 100 unit/mL (3 10 unit SC DAILY PRN 09/16/19 11/12/19 mL) subcutaneous pen pen needle, diabetic 32 gauge x #10 each 09/16/19 11/12/19 clotrimazole 10 mg vicky 10 mg MUCOUS MEMBRANE TID PRN #20 11/11/19 11/12/19 tab Previous Rx's Medication Instructions Recorded lisinopril 40 mg tablet 40 mg PO DAILY #90 tab 01/24/19 albuterol sulfate 90 mcg/actuation 2 puff INHALATION Q6H PRN PRN #18 03/15/19 aerosol inhaler gm aspirin 81 mg tablet,delayed 81 mg PO DAILY #90 tab 03/15/19 release atorvastatin 80 mg tablet 80 mg PO DAILY #90 tab 03/15/19 clopidogrel 75 mg tablet 75 mg PO DAILY #90 tab 03/15/19 ibuprofen 800 mg tablet 800 mg PO TID PRN PRN #180 tab 03/15/19 insulin aspart U-100 100 unit/mL See Rx Instructions SUBCUT AC #15 03/15/19 (3 mL) subcutaneous pen ml isosorbide mononitrate 30 mg 30 mg PO DAILY #90 tab 03/15/19 tablet,extended release 24 hr metoprolol succinate 200 mg 200 mg PO DAILY #90 tab 03/15/19 tablet,extended release 24 hr pantoprazole 40 mg tablet,delayed 40 mg PO DAILY #90 tab-cap 03/15/19 release triamcinolone acetonide 0.5 % 1 applic TP BID #454 gm 03/15/19 topical cream quetiapine 400 mg tablet 800 mg PO QHS #180 tab 03/18/19 ergocalciferol (vitamin D2) 1,250 50,000 unit PO QWEEK #6 cap 04/30/19 mcg (50,000 unit) capsule methocarbamol 500 mg PO Q6H PRN #14 tab 05/12/19 hydrochlorothiazide 25 mg tablet 25 mg PO DAILY #90 tab 06/20/19 tramadol 50 mg tablet 50 mg PO Q8H PRN #15 tab MDD 150 mg 07/11/19 prednisone 5 mg tablet 5 mg PO DAILY #30 tab 08/06/19 hydrocodone-acetaminophen 1 tab PO Q6H PRN #7 tab 08/26/19 prazosin 2 mg capsule See Rx Instructions PO HS #360 cap 08/29/19 pen needle, diabetic 32 gauge x #10 each 09/16/19 clotrimazole 10 mg vicky 10 mg MUCOUS MEMBRANE TID PRN #20 11/11/19 tab Allergies Allergy/AdvReac Type Severity Reaction Status Date / Time levofloxacin [From Levaquin] Allergy Verified 11/12/19 16:13 Penicillins Allergy Verified 11/12/19 16:13 pioglitazone HCl [From Actos] Allergy Verified 11/12/19 16:13 gabapentin AdvReac so sick Verified 11/12/19 16:13 vomitting/headache metformin AdvReac DIARRHEA Verified 11/12/19 16:13 General Stated Complaint: Chest Pain TEETEE: 2 Review of Systems Narrative: Recent ED visit for diverticulitis for which she finished antibiotics. Now with 2 days of watery diarrhea. Noted to have thrush and taking oral lozenges for this. Had discrete shortness of breath with her fast heart rate, denies to me any significant chest pain. 8 systems were reviewed and otherwise negative. [facility] Medical History Alopecia Anxiety (03/20/12) Carpal tunnel syndrome left Chest pain (08/23/12) neg. MPI; esophageal spasm per UGI Chronic constipation COPD (chronic obstructive pulmonary disease) Coronary artery disease Depressive disorder (03/20/12) Dizziness (03/20/12) Dysfunctional uterine bleeding Essential hypertension (11/15/12) Gastroparesis (04/17/14) DR. FOLEY-04/17/14 Hirsutism (03/20/12) Hyperlipidemia Hypertension Hypokalemia Insomnia, unspecified (03/20/12) Medial malleolar fracture (09/21/18) Migraine headache with aura Migraine headache without aura Narcolepsy without cataplexy Non-alcoholic fatty liver disease (04/06/12) Onycholysis Onychomycosis Orthostasis ALEXA (obstructive sleep apnea) Papilloma of oral cavity Personality disorder MULTIPLE Posttraumatic stress disorder (03/20/12) multiple admissions to care bed. Schizophrenia Smoker Syncope and collapse Type II diabetes mellitus with complication, uncontrolled (01/22/14) Surgical History History of appendectomy (~10/02/17) History of bilateral ligation of fallopian tubes History of section History of esophagogastroduodenoscopy (01/03/14) [place] of right and left heart [place]15[place] [facility] [place] post carpal tunnel release (~2016) Left Status post cholecystectomy Family History Mother Substance abuse Diabetes Heart disease Hypertension Father Substance abuse Diabetes Heart disease Hypertension Sister Cancer Heart disease Social History Smoking/Tobacco Use Status: Current every day Tobacco Type: cigarettes Years smoked: 40 Alcohol Intake: current Alcohol Intake frequency: holidays/special occasions only Alcohol type: wine Drug use: Never Substance use type: does not use Adopted: No Caregiver/Support person: No Foster care: No Household members: none Number of Children: 2 Do you need help understanding health information?: Never current occupation: Disabled Pets and animals: Yes (Therapy dog) Sexually active: No Do you think of yourself as: straight/heterosexual Current gender identity: female What is your relationship status?: Panel score (0-1 are the most socially isolated patients): 0 Seatbelt use: never Do you feel safe at home: Yes Do you feel safe in your relationship?: Yes Exam Narrative Exam Narrative: GEN: awake, alert, oriented 3. Pleasant, well groomed, interactive. HEAD: Normocephalic, atraumatic ENT: Mucous membranes moist, oropharynx unremarkable, External ear exam unremarkable EYES: PERRL, EOMI NECK: Full ROM, no SABINO, no menigismus CHEST/RESP: Nontender, clear to auscultation bilateral, no wheeze/rhonchi/rales CARDIOVASCULAR: BORDERLINE TACHYCARDIA, RRR, no murmur, rub emely. 2+ Rad pulse bilateral ABDOMEN: Soft, nontender, no mass. +Bowel sounds EXT: Full ROM, no edema, superficial scratches to the dermis Neuro: Grossly normal neurologic exam, conversant, interactive. Psych: Speech fluent, thoughts congruent, affect normal Course Vital Signs Vital signs: Vital Signs Temperature 37.0 C 11/12/19 16:07 Pulse 116 H 11/12/19 16:07 Respiratory Rate 16 11/12/19 16:07 Blood Pressure 135/69 11/12/19 16:07 Pulse Oximetry 94 11/12/19 16:07 Temperature 37.0 C 11/12/19 16:07 Temperature Source Tympanic 11/12/19 16:07 Pulse 116 H 11/12/19 16:07 Respiratory Rate 16 11/12/19 16:07 Respiratory Effort Labored 11/12/19 16:11 Blood Pressure 135/69 11/12/19 16:07 Blood Pressure Position Sitting 11/12/19 16:07 Pulse Oximetry 94 11/12/19 16:07 Oxygen Delivery Method Room Air 11/12/19 16:07 Oxygen Flow Rate 0 11/12/19 16:07 Pain Level 5 11/12/19 16:07
[2019-11-12 16:45] LABS: Abs Immature Grans 0.04 10^3/uL (0.0-0.06); Absolute Basophil Count 0.06 10^3/uL (0.0-0.2); Absolute Eosinophil Count 0.09 10^3/uL (0.0-0.7); Absolute Lymphocyte Count 2.11 10^3/uL (1.2-3.4); Absolute Monocyte Count 0.49 10^3/uL (0.1-0.8); Absolute Neutrophil Count 5.42 10^3/uL (1.2-6.7); Basophils % 0.7; Eosinophils % 1.1; HCT 45.5 % (36.0-46.0); Immature Grans % 0.5; Lymphocytes % 25.7; MCH 28.2 pg (27.0-33.0); MCV 85.7 fL (80-95); MPV 10.5 fL (8.0-11.0); Nucleated RBC 0 %; Platelet Count 215 10^3/uL (130-400); RBC 5.31 10^6/uL (3.93-5.22); RDW 13.7 % (11.7-14.6); RDW-SD 42.7 fL; WBC 8.21 10^3/uL (4.4-10.8)
[2019-11-12 17:05] LABS: ALT 41 U/L (14-59); AST 61 U/L (15-37); Albumin 3.1 g/dL (3.4-5.0); Alkaline Phosphatase 63 U/L (46-116); Anion Gap 8.3 mmol/L (3-11); BUN 13 mg/dL (7-18); Bilirubin, Total 0.5 mg/dL (0.2-1.0); CO2 27.7 mmol/L (21.0-32.0); CREATININE 0.73 mg/dL (0.55-1.02); Calcium 9.1 mg/dL (8.5-10.1); Chloride 95 mmol/L (98-107); Glucose 322 mg/dL (74-106); Magnesium 1.9 mg/dL (1.8-2.4); NT-proBNP 174 pg/mL (<300); Sodium 131 mmol/L (136-145); Total Protein 7.3 g/dL (6.4-8.2); Troponin I < 0.05 ng/mL (<0.06)
--- NOTE | 2019-11-12 18:05 | DI.VRAD_ITS ---
PROCEDURE INFORMATION: Exam: XR Chest, 2 Views Exam date and time: 11/12/2019 5:46 PM Age: 54 years old Clinical indication: Other: Dizzy TECHNIQUE: Imaging protocol: XR of the chest Views: 2 views. COMPARISON: CR XR CHEST 2V PA LATERAL 05/12/2019 12:15 PM FINDINGS: Lungs: Clear lungs. Pleural space: No pneumothorax. No sizeable effusion. Heart/Mediastinum: Cardiomediastinal silhouette is within normal limits. Bones/joints: No acute displaced fracture or dislocation. IMPRESSION: No acute cardiopulmonary process. Dictated and Authenticated by: Nilo Carlton MD. Ordering:FERN Martinez MD
== END 2019-11-12 18:20 | disposition home or self-care (01) ==
PROVIDERS: Emergency Provider Emergency Medicine; PCP Family Medicine
DX: E87.1 Hypo-osmolality and hyponatremia (principal); R42 Dizziness and giddiness; R00.0 Tachycardia, unspecified; E11.65 Type 2 diabetes mellitus with hyperglycemia; Z79.4 Long term (current) use of insulin; I10 Essential (primary) hypertension; J44.9 Chronic obstructive pulmonary disease, unspecified; F17.210 Nicotine dependence, cigarettes, uncomplicated
CPT/HCPCS: 36415; 80053; 93005; 99285; 71046; 83735; 83880; 84484; 85025; 93010

== ENCOUNTER 2019-11-15 01:46 | Outpatient (CLI) | payer OTHER, SELFPAY ==
--- NOTE | 2019-12-02 11:01 | W.ZIOMONITOR ---
Date of service: 12/02/19 Time of Service: 11:01 14 Day Lip Cutter And [employer]orer Referring Provider:: Angélica Indications:: tachycardia Note: There is a 14-day remote monitor ordered for indication of tachycardia. ?The patient was in normal sinus rhythm for the majority of the recording with an average heart rate of 80 bpm. Maximum sinus tachycardia was 122 bpm. ?There were rare PACs and PVCs. ?There were no episodes of ventricular tachycardia no episodes of supraventricular tachycardia. ?There were no episodes of atrial fibrillation and no pauses greater than 3 seconds.
== END 2019-11-15 02:06 ==
PROVIDERS: PCP Family Medicine; Visit Provider Family Medicine
DX: R00.0 Tachycardia, unspecified (principal)
CPT/HCPCS: 0296T

== ENCOUNTER 2019-12-02 09:30 | Outpatient (CLI) | payer OTHER, SELFPAY | END 2019-12-02 09:50 | PROVIDERS: PCP Family Medicine; Referring Provider Family Medicine; Visit Provider Internal Medicine Cardiovascular Disease | DX: R00.0 Tachycardia, unspecified (principal) | CPT/HCPCS: 0298T ==

== ENCOUNTER → 2019-12-23 12:32 | Outpatient (BNVA) | payer OTHER, SELFPAY | PROVIDERS: PCP Family Medicine; Referring Provider Family Medicine; Visit Provider Psychiatry & Neurology Neurology | DX: I10 Essential (primary) hypertension (principal); R55 Syncope and collapse; G90.8 Other disorders of autonomic nervous system; R51.9 Headache, unspecified; G89.29 Other chronic pain; E11.69 Type 2 diabetes mellitus with other specified complication | CPT/HCPCS: 64405; 99215 ==

== ENCOUNTER → 2020-01-03 13:56 | Outpatient (BNVA) | payer OTHER, SELFPAY | PROVIDERS: PCP Family Medicine; Referring Provider Family Medicine; Visit Provider Internal Medicine Cardiovascular Disease | DX: G90.9 Disorder of the autonomic nervous system, unspecified (principal); I95.1 Orthostatic hypotension; I25.10 Atherosclerotic heart disease of native coronary artery without angina pectoris; I10 Essential (primary) hypertension | CPT/HCPCS: 99203; 99214 ==

== ENCOUNTER 2020-01-16 01:13 | Outpatient (CLI) | payer OTHER, SELFPAY ==
--- NOTE | 2020-01-16 07:30 | DI.US_ITS ---
EXAM: US PELVIS CLINICAL HISTORY: PosTmenopausal [id number] TECHNIQUE: Transabdominal imaging was performed using standard protocol. COMPARISON: CT CT ABDOMEN PELVIS W from 10/30/2019 FINDINGS: A transabdominal exam was performed. The exam is limited by the patient's body habitus. The endomet rial stripe could not be visualized. No gross endometrial thickening was seen on previous CT. KIDNEYS: Kidneys are symmetric in size. No evidence of renal calculi. No evidence of hydronephrosis. No renal mass or cyst identified. UTERUS: Anteverted. 6.3 x 1.3 x 3.8 cm. Endometrium: Not well seen due to patient body habitus. Myometrium: Unremarkable. Cervix: Grossly normal. OVARIES: Right: Cyst or mass: None. 2.2 x 1.2 x 1.3 cm Left: Cyst or mass: None. 2.3 x 1.6 x 1.8 cm. DOPPLER: Color: Symmetric and uniform flow to both ovaries. No hyperemia. Duplex: Normal ovarian arterial waveforms visualized. CUL-DE-SAC: Free fluid: None. IMPRESSION: 1. Limited exam due to patient body habitus. Normal sized uterus. Endometrial stripe not visualized .. 2. Unremarkable bilateral ovaries. DATA REPOSITORY:
== END 2020-01-16 01:33 ==
PROVIDERS: PCP Family Medicine; Visit Provider Nurse Practitioner Women's Health
DX: N95.0 Postmenopausal bleeding (principal)
CPT/HCPCS: 76856

== ENCOUNTER → 2020-01-23 07:18 | Outpatient (BNVA) | payer OTHER, SELFPAY | PROVIDERS: PCP Family Medicine; Referring Provider Family Medicine; Visit Provider Psychiatry & Neurology Neurology | DX: I95.1 Orthostatic hypotension (principal); G90.9 Disorder of the autonomic nervous system, unspecified; G43.009 Migraine without aura, not intractable, without status migrainosus; G43.109 Migraine with aura, not intractable, without status migrainosus; G89.29 Other chronic pain | CPT/HCPCS: 99213; 99442 ==

== ENCOUNTER → 2020-02-27 13:42 | Outpatient (BNVA) | payer OTHER, SELFPAY | PROVIDERS: PCP Family Medicine; Referring Provider Family Medicine; Visit Provider Psychiatry & Neurology Neurology | DX: G43.009 Migraine without aura, not intractable, without status migrainosus (principal); G43.109 Migraine with aura, not intractable, without status migrainosus; G90.9 Disorder of the autonomic nervous system, unspecified; I95.1 Orthostatic hypotension; G89.29 Other chronic pain | CPT/HCPCS: 99443 ==

== ENCOUNTER 2020-02-28 02:12 | Outpatient (CLI) | payer OTHER, SELFPAY ==
[2020-02-29 16:42] LABS: COVID-19 RT-PCR UVMMC Result Negative (Negative)
== END 2020-02-28 02:32 ==
PROVIDERS: PCP Family Medicine; Visit Provider Obstetrics & Gynecology
DX: Z11.52 Encounter for screening for COVID-19 (principal); Z01.818 Encounter for other preprocedural examination
CPT/HCPCS: U0003

== ENCOUNTER 2020-02-28 02:13 | Outpatient (CLI) | payer OTHER, SELFPAY ==
[2020-02-28 14:12] LABS: Abs Immature Grans 0.03 10^3/uL (0.0-0.06); Absolute Basophil Count 0.06 10^3/uL (0.0-0.2); Absolute Eosinophil Count 0.13 10^3/uL (0.0-0.7); Absolute Lymphocyte Count 1.85 10^3/uL (1.2-3.4); Absolute Monocyte Count 0.46 10^3/uL (0.1-0.8); Absolute Neutrophil Count 4.33 10^3/uL (1.2-6.7); Basophils % 0.9; Eosinophils % 1.9; HCT 43.9 % (36.0-46.0); HGB 14.6 g/dL (11.2-15.7); Immature Grans % 0.4; MCHC 33.3 % (32.0-36.0); MCV 87.1 fL (80-95); MPV 9.6 fL (8.0-11.0); Monocytes % 6.7; Neutrophils % 63.1; Nucleated RBC 0 %; Platelet Count 179 10^3/uL (130-400); RBC 5.04 10^6/uL (3.93-5.22); RDW 13.2 % (11.7-14.6); RDW-SD 41.9 fL; WBC 6.86 10^3/uL (4.4-10.8)
== END 2020-02-28 02:33 ==
PROVIDERS: PCP Family Medicine; Visit Provider Obstetrics & Gynecology
DX: N95.0 Postmenopausal bleeding (principal); Z01.818 Encounter for other preprocedural examination; Z01.812 Encounter for preprocedural laboratory examination; Z11.52 Encounter for screening for COVID-19
CPT/HCPCS: 36415; 86850; 86900; 86901; U0003; 85025

== ENCOUNTER 2020-03-04 07:16 | Day surgery (SDC) | payer OTHER, SELFPAY ==
[2020-03-04 07:20] VITALS: BP 184/90; PULSE 99; RESP 22; TEMP 36.3; O2SAT 97
[2020-03-04] MEDS: Lactated Ringers 1,000 ML 125 ML IV (07:56)
--- NOTE | 2020-03-04 08:45 | PAPFT_PTH ---
PATIENT: Lis Cortes LOC: [facility] U#:[id number] AGE/SX: 55/F ROOM: RE03/04/[address]: Michelle Stokes DO : 1965 BED: DIS: 03/04/2020 SPEC #: [id number] RECD: 03/04/20 13:02 STATUS: MELANIA REQ #: [id number] LILLIAM: 03/04/20 08:[address]: Michelle Stokes DEPT: [facility] Cytology RECD BY: Vesna Pugh ENTERED: 03/04/20 13:02 SP TYPE: PAPFT OTHR DR: Enrike Heredia DO Tissues: 1 - CX/ENDOCX FOR PAP SMEARS Procedures: PAP THIN PREP/UVM Screening HPV DNA PROBE Comments: [id number]
--- NOTE | 2020-03-04 08:45 | ENDOMET_PTH ---
PATIENT: Lis Cortes LOC: [facility] U#:[id number] AGE/SX: 55/F ROOM: RE03/04/[address]: Michelle Stokes DO : 1965 BED: DIS: 03/04/2020 SPEC #: [id number] RECD: 03/04/20 12:49 STATUS: SOUT REQ #: [id number] LILLIAM: 03/04/20 08:[address]: Michelle Stokes DEPT: Surgical Specimen RECD BY: Vesna Pugh ENTERED: 03/04/20 12:50 SP TYPE: Endomet OTHR DR: Enrike Heredia DO Tissues: 1 - ENDOMETRIUM BX/RUYETTE Procedures: GROSS AND MICRO LEVEL 4 Comments: [id number]
--- NOTE | 2020-03-04 08:58 | W.PM.OP ---
Date of service: 03/04/20 Time of Service: 08:58 Operative Note Operative Note DATE OF PROCEDURE: 03/04/20 PRE-OP DIAGNOSIS: Postmenopausal bleeding and thickened endometrium PROCEDURE: Exam under anesthesia, Pap smear, endometrial biopsy SURGEON: Michelle Stokes ANESTHESIA: MAC ESTIMATED BLOOD LOSS: 0 PATHOLOGY: other (1. Pap smear 2. Endometrial biopsy) COMPLICATIONS: None Patient was transported to: PACU Indications: Postmenopausal bleeding. Inability to tolerate exam in the office. Need for Pap smear Findings: Vulvovaginal atrophy. Normal-appearing cervix. 6-week size mobile midline uterus. Scant tissue on endometrial biopsy Procedure Description: Patient 55-year-old female who is unable to tolerate exam in the office. She received sedation for examination today. Risk and benefits of procedure explained patient full informed consent was obtained. She is taken the operating suite with an IV running where she is given monitored anesthesia care. She was placed in the modified dorsal lithotomy position and exam under anesthesia performed. Of note she has significant vulvovaginal atrophy with a gaping vaginal introitus. Speculum was placed and cervix was visualized. Pap smear was obtained. Cervix was then cleansed with Betadine and a single-tooth tenaculum used to grasp the anterior lip of the cervix. Endometrial Pipelle of 3 mm was used under direct visualization to collect endometrial sampling. Tenaculum and speculum were then removed and exam under anesthesia performed. Uterus is midline and mobile, somewhat obscured by body habitus. There is no evidence of adnexal masses. Uterus is approximately 6 weeks size. At this point procedure was terminated and she was returned to the dorsal supine position. She woke from anesthesia with ease and was taken to recovery room in stable condition. Findings: Scant endometrial tissue. Atrophic vulva vagina. Uterus midline mobile, no evidence of adnexal masses EBL: 0 Pathology: 1. Pap smear 2. Endometrial biopsy Complications: None apparent
[2020-03-04 09:25] VITALS: BP 114/62; PULSE 90; RESP 18; TEMP 36; O2SAT 98
== END 2020-03-04 09:52 | disposition home or self-care (01) ==
PROVIDERS: PCP Family Medicine; Visit Provider Obstetrics & Gynecology
PROC: (CPT 58100; principal; 2020-03-04 08:30)
DX: N95.0 Postmenopausal bleeding (principal); R93.89 Abnormal findings on diagnostic imaging of other specified body structures; N84.0 Polyp of corpus uteri; Z12.4 Encounter for screening for malignant neoplasm of cervix; Z11.51 Encounter for screening for human papillomavirus (HPV)
CPT/HCPCS: 58100; Q0091; 36415; 86850; 86900; 86901; 88142; 88305; 87624; J2250; J3010

== ENCOUNTER 2020-03-12 19:14 | Emergency (ER) | payer OTHER, SELFPAY ==
[2020-03-12 19:22] VITALS: BP 219/113; PULSE 94; RESP 16; TEMP 36.7; O2SAT 98
--- NOTE | 2020-03-12 19:57 | ED.GENADUL_ITS ---
Discharge Plan Disposition Patient Disposition: HOME Condition: Good Discharge Details Clinical Impression: Myalgia, Hypertension, General weakness Primary Care Provider: Enrike Heredia ED Provider: John Sage Meds and New Rx's Prescriptions: Continued hydrocortisone-acetic acid 1-2 % drops 4 drp otic (ear) TID PRN (Reason: Ear itch) Qty: 10 RF: 0 halobetasol propionate 0.05 % cream 1 applic topical DAILY Qty: 15 RF: 3 midodrine 2.5 mg tablet 2.5 mg PO BID Qty: 60 RF: 5 Emgality Pen 120 mg/mL pen injector 240 mg subcut ONCE Qty: 2 RF: 0 Victoza 2-Ozzie 0.6 mg/0.1 mL (18 mg/3 mL) pen injector See Rx Instructions subcut .COMPLEX Qty: 6 RF: 0 isosorbide mononitrate 30 mg tablet extended release 24 hr 30 mg PO DAILY Qty: 90 RF: 3 (DME) lancets 28 gauge misc 1 ea Miscellaneous TID Qty: 400 RF: 6 (DME) pen needle, diabetic [BD Ultra-Fine Lorraine Pen Needle] 32 gauge x 5/32 needle See Rx Instructions .ROUTE .MEDSUPPLY Qty: 100 RF: 6 lisinopril 40 mg tablet 20 mg PO DAILY Qty: 90 RF: 3 prazosin 2 mg capsule 6 mg PO QHS Qty: 270 RF: 3 clotrimazole 1 % cream 1 applic TP BID RF: 0 albuterol sulfate [ProAir HFA] 90 mcg/actuation HFA aerosol inhaler 2 puff Inhalation Q6H PRN PRN (Reason: shortness of breath or wheezing) Qty: 18 RF: 6 aspirin [Ecotrin Low Strength] 81 mg tablet,delayed release (DR/EC) 81 mg PO DAILY Qty: 90 RF: 3 ibuprofen 800 mg tablet 800 mg PO TID PRN PRN (Reason: pain) Qty: 180 RF: 3 insulin aspart U-100 [Novolog Flexpen U-100 Insulin] 100 unit/mL (3 mL) insulin pen See Rx Instructions subcut AC Qty: 15 RF: 6 metoprolol succinate [Toprol XL] 200 mg tablet extended release 24 hr 200 mg PO DAILY Qty: 90 RF: 3 Hold Instructions: Home Medication placed on hold at Doctor's office pantoprazole [Protonix] 40 mg tablet,delayed release (DR/EC) 40 mg PO DAILY Qty: 90 RF: 3 triamcinolone acetonide 0.5 % cream 1 applic TP BID Qty: 454 RF: 6 quetiapine 400 mg tablet 800 mg PO QHS Qty: 180 RF: 3 clotrimazole 10 mg vicky 10 mg mucous membrane TID PRN (Reason: Until thrush resolved) Qty: 20 RF: 0 nitroglycerin [Nitrostat] 0.4 mg tablet, sublingual 0.4 mg Sublingual PRN Qty: 60 RF: 3 Lantus Solostar U-100 Insulin 100 unit/mL (3 mL) insulin pen 90 unit SC HS RF: 0 sertraline 100 mg tablet 200 mg PO DAILY RF: 0 methocarbamol 500 mg tablet 500 mg PO Q6H PRN (Reason: muscle spasm) Qty: 14 RF: 0 Discharge Instructions Additional Instructions: I will send a couple more labs to check on some other thoughts. If they are very abnormal I will contact you tonight. Otherwise please follow-up with primary care as well as your neurologist. I think some of your worsening sym ptoms and new symptoms are likely related to anxiety, stress, not sleeping. Little concerned with blood pressure but hard to ascertain whether elevated because of anxiety and stress versus lack of good control. Return to the ED if you develop chest pain, shortness of breath, focal neurologic changes, other concerns. Referrals: Enrike Heredia DO [Primary Care Provider] - Discharge Data Discharge Date/Time-TO BE ENTERED AT DEPARTURE: 03/12/20 21:10 Medical Decision Making <Jose Jacobo MD - Last Filed: 03/12/20 21:03> 55yo f with history of HTN and narcolepsy, here with lightheadedness and aches in extremity with ambulation since this AM. Recent antihypertensive medication changes. Patient is hypertensive. Saturating well and in no respiratory distress. EKG performed at [facility] just prior to ED arrival was reviewed: please see EKG. QTc prolongation noted. Consider hypertensive emergency vs cardiogenic etiology including ACS. Patient is very anxious. I do believe anxiety is contributing to her presentation and symptoms. I offered anxiolytic and she declined. Patient moved to room with window for comfort. Patient is vocal that she does not want to be in ED today and requestminimal intervention - she declines IV access and repeat EKG despite my recommendation. She is agreeable to diagnostic labs. Care signed out to Dr. Sage. Labs pending at time of signout. <John Sage MD - Last Filed: 03/12/20 22:18> Patient signed out to me from Dr. Jacobo pending laboratory studies. Patient had been sent from urgent care for further evaluation of symptoms and elevated blood pressure. I have taken an independent history. Patient does have significant anxiety and PTSD as well as known other psychiatric problems. She also likely has autonomic dysfunction and dizziness she is describing is not something new. Has been evaluated by primary care, neurology and to some degree cardiology. There have been multiple medication changes. Over the last week and a half patient has had significant increase in night terrors, anxiety, psych problems resulting in little to no sleep. She chronically hears voices which are always telling her that people want to hurt her or that she should kill herself. All of this is unchanged. What is new today is that anytime she tries to walk she starts to have pain in her arms and legs and feels like she has walked 700 miles and has to sit. She does not have any type of chest pain or pressure, shortness of breath. She has no focal neurologic changes. Patient's EKG from urgent care shows prolonged QT and incomplete right bundle branch block. There is no ST changes. It is sinus rhythm. Blood pressure is markedly elevated but patient is extremely anxious and has been very stressed over the last week. She has also been having medications adjusted. At this point unclear whether blood pressure is related to one or the other or all of the above. Her neurologic exam for me is normal. She is alert and oriented x3. Her speech is clear. Her mentation is clear. Cranial nerves II through XII are intact. Visual field intact. Strength and sensation intact. [id number] normal. Gait normal. Despite having chronic voices telling her to harm herself she is not actively suicidal. She has insight and judgment incapacity. She does have muscle tenderness with palpation of the extremities. Laboratory studies are unremarkable. Troponin negative. Sugar elevated but otherwise chemistries fine. CBC fine. I have added a TSH and CPK. Patient, however, is requesting to leave. She is becoming more and more anxious being here. She currently denies being on a statin drug although she has been in the past. I do not think keeping her here waiting for the labs to return is in her best interest mentally. Blood pressure has come down slightly since being here. I suspect that the majority of her symptoms are likely related to lack of sleep, anxiety, and physical strain accompanied with this. I will follow up on the laboratory studies tonight but patient is discharged home at this time to follow-up with primary care and neurology. Patient's TSH and CPK have come back normal. Lab Data Lab results reviewed: Yes I reviewed the patient's lab results. HPI <Jose Jacobo MD - Last Filed: 03/12/20 21:03> General Mode of arrival: ambulatory . Date/Time Provider Initiated Documentation: 03/12/20 19:30 . Limitations to Documentation: no limitations . Information obtained by: patient . HPI Narrative: 55yo f with history of HTN presents with cheif complaint of dizziness. Patient notes that since this AM, anytime she ambulates she experiences dizziness described as lightheadedness like she feels faint. She has associated pain in extremities and neck and generalized weakness during these episode. Symptoms are moderate. When she sits down and rests, symptoms completely resolve. She denies chest pain and shortness of breath. She has mild MURPHY which she attribute to anxiety. She is very anxious and notes that she has not been sleeping well -- only a couple hours a night for the past few weeks. This is le ss than usual. She has had recent antihypertensive medication changes about 1.5 weeks ago, Related Data Home Medications Medication Instructions Recorded Confirmed clotrimazole 1 % topical cream 1 applic TP BID 01/16/19 03/12/20 albuterol sulfate 90 mcg/actuation 2 puff INHALATION Q6H PRN PRN #18 03/15/19 03/12/20 aerosol inhaler gm aspirin 81 mg tablet,delayed 81 mg PO DAILY #90 tab 03/15/19 03/12/20 release ibuprofen 800 mg tablet 800 mg PO TID PRN PRN #180 tab 03/15/19 03/12/20 insulin aspart U-100 100 unit/mL See Rx Instructions SUBCUT AC #15 03/15/19 03/12/20 (3 mL) subcutaneous pen ml metoprolol succinate 200 mg 200 mg PO DAILY #90 tab 01/31/20 01/28/21 tablet,extended release 24 hr pantoprazole 40 mg tablet,delayed 40 mg PO DAILY #90 tab-cap 03/15/19 03/12/20 release triamcinolone acetonide 0.5 % 1 applic TP BID #454 gm 03/15/19 03/12/20 topical cream quetiapine 400 mg tablet 800 mg PO QHS #180 tab 03/18/19 03/12/20 methocarbamol 500 mg PO Q6H PRN #14 tab 05/12/19 03/12/20 sertraline 200 mg PO DAILY 05/12/19 03/12/20 clotrimazole 10 mg vicky 10 mg MUCOUS MEMBRANE TID PRN #20 11/11/19 03/12/20 tab nitroglycerin 0.4 mg sublingual 0.4 mg SUBLINGUAL PRN #60 tab 11/25/19 03/12/20 tablet hydrocortisone-acetic acid 1 %-2 % 4 drp OTIC (EAR) TID PRN #10 ml 12/17/19 03/12/20 ear drops insulin glargine 100 unit/mL (3 90 unit SC HS ml 01/16/20 03/12/20 mL) subcutaneous pen isosorbide mononitrate 30 mg 30 mg PO DAILY #90 tab 01/16/20 03/12/20 tablet,extended release 24 hr lancets 28 gauge #400 ea 01/16/20 03/12/20 liraglutide 0.6 mg/0.1 mL (18 mg/3 See Rx Instructions SUBCUT 01/16/20 03/12/20 mL) subcutaneous pen injector .COMPLEX #6 ml lisinopril 40 mg tablet 20 mg PO DAILY #90 tab 01/16/20 03/12/20 pen needle, diabetic 32 gauge x #100 ea 01/16/20 03/12/20 5/32 prazosin 2 mg capsule 6 mg PO QHS #270 cap 01/16/20 03/12/20 halobetasol propionate 0.05 % 1 applic TOPICAL DAILY #15 g 01/28/20 03/12/20 topical cream galcanezumab-gnlm 120 mg/mL 240 mg SUBCUT ONCE #2 ml 02/27/20 03/12/20 subcutaneous pen injector midodrine 2.5 mg tablet 2.5 mg PO BID #60 tab 02/27/20 03/12/20 Previous Rx's Medication Instructions Recorded albuterol sulfate 90 mcg/actuation 2 puff INHALATION Q6H PRN PRN #18 03/15/19 aerosol inhaler gm aspirin 81 mg tablet,delayed 81 mg PO DAILY #90 tab 03/15/19 release ibuprofen 800 mg tablet 800 mg PO TID PRN PRN #180 tab 03/15/19 insulin aspart U-100 100 unit/mL See Rx Instructions SUBCUT AC #15 03/15/19 (3 mL) subcutaneous pen ml metoprolol succinate 200 mg 200 mg PO DAILY #90 tab 03/15/19 tablet,extended release 24 hr pantoprazole 40 mg tablet,delayed 40 mg PO DAILY #90 tab-cap 03/15/19 release triamcinolone acetonide 0.5 % 1 applic TP BID #454 gm 03/15/19 topical cream quetiapine 400 mg tablet 800 mg PO QHS #180 tab 03/18/19 methocarbamol 500 mg PO Q6H PRN #14 tab 05/12/19 clotrimazole 10 mg vicky 10 mg MUCOUS MEMBRANE TID PRN #20 11/11/19 tab nitroglycerin 0.4 mg sublingual 0.4 mg SUBLINGUAL PRN #60 tab 11/25/19 tablet hydrocortisone-acetic acid 1 %-2 % 4 drp OTIC (EAR) TID PRN #10 ml 12/17/19 ear drops isosorbide mononitrate 30 mg 30 mg PO DAILY #90 tab 01/16/20 tablet,extended release 24 hr lancets 28 gauge #400 ea 01/16/20 liraglutide 0.6 mg/0.1 mL (18 mg/3 See Rx Instructions SUBCUT 01/16/20 mL) subcutaneous pen injector .COMPLEX #6 ml lisinopril 40 mg tablet 20 mg PO DAILY #90 tab 01/16/20 pen needle, diabetic 32 gauge x #100 ea 01/16/20 prazosin 2 mg capsule 6 mg PO QHS #270 cap 01/16/20 halobetasol propionate 0.05 % 1 applic TOPICAL DAILY #15 g 01/28/20 topical cream galcanezumab-gnlm 120 mg/mL 240 mg SUBCUT ONCE #2 ml 02/27/20 subcutaneous pen injector midodrine 2.5 mg tablet 2.5 mg PO BID #60 tab 02/27/20 Allergies Allergy/AdvReac Type Severity Reaction Status Date / Time levofloxacin [From Levaquin] Allergy Verified 03/12/20 19:31 Penicillins Allergy Verified 03/12/20 19:31 pioglitazone HCl [From Actos] Allergy Verified 03/12/20 19:31 gabapentin AdvReac so sick Verified 03/12/20 19:31 vomitting/headache metformin AdvReac DIARRHEA Verified 03/12/20 19:31 General Stated Complaint: GenMedical TEETEE: 3 Review of Systems <Jose Jacobo MD - Last Filed: 03/12/20 21:03> All systems reviewed & are unremarkable except as noted in HPI and below Constitutional Constitutional: Reports as per HPI and Denies fever(s) Cardiovascular Cardiovascular: Reports as per HPI, Denies chest pain, Denies leg edema and Reports lightheadedness Gastrointestinal Gastrointestinal: Denies abdominal pain Musculoskeletal Musculoskeletal: Denies numbness Neurologic Neurologic: Denies numbness and Denies sensory deficit PFSH <Jose Jacobo MD - Last Filed: 03/12/20 21:03> Medical History Alopecia Anxiety (03/20/12) Carpal tunnel syndrome left Chest pain (08/23/12) neg. MPI; esophageal spasm per UGI Chronic constipation COPD (chronic obstructive pulmonary disease) Coronary artery disease Depressive disorder (03/20/12) Dizziness (03/20/12) Dysfunctional uterine bleeding Essential hypertension (11/15/12) Gastroparesis (04/17/14) DR. FOLEY-04/17/14 Hirsutism (03/20/12) Hyperlipidemia Hypertension Hypokalemia Insomnia, unspecified (03/20/12) Medial malleolar fracture (09/21/18) Migraine headache with aura Migraine headache without aura Narcolepsy without cataplexy Pt. denies this Non-alcoholic fatty liver disease (04/06/12) Onycholysis Onychomycosis Orthostasis ALEXA (obstructive sleep apnea) Papilloma of oral cavity Personality disorder MULTIPLE Postmenopausal Bleeding Posttraumatic stress disorder (03/20/12) multiple admissions to care bed. While waking up from anesthesia say name first before touching patient. Schizophrenia Smoker Syncope and collapse Type II diabetes mellitus with complication, uncontrolled (01/22/14) Surgical History History of appendectomy (~10/02/17) History of bilateral ligation of fallopian tubes History of section History of esophagogastroduodenoscopy (01/03/14) History of right and left heart catheterization 03/30/15 & 05/15/[address] - [facility] [place] Status post carpal tunnel release (~2016) Left Status post cholecystectomy Family History Mother Substance abuse Diabetes Heart disease Hypertension Father Substance abuse Diabetes Heart disease Hypertension Sister Cancer Heart disease Social History Smoking/Tobacco Use Status: Current every day Smoking risk assessment performed?: Yes Alcohol Intake: current Alcohol Intake frequency: holidays/special occasions only Alcohol type: wine Drug use: Daily Substance use type: marijuana Adopted: No Caregiver/Support person: No Foster care: No Household members: none Number of Children: 2 Do you need help understanding health information?: Never current occupation: Disabled Pets and animals: Yes (Therapy dog) Sexually active: No Do you think of yourself as: straight/heterosexual Current gender identity: female What is your relationship status?: Panel score (0-1 are the most socially isolated patients): 0 Seatbelt use: never Do you feel safe at home: Yes Do you feel safe in your relationship?: Yes Exam <Jose Jacobo MD - Last Filed: 03/12/20 21:03> Const General: cooperative and no acute distress [facility] Head: normocephalic Mouth: moist mucous membranes Eyes Conjunctivae: normal conjunctivae Sclera: normal sclerae Pupils: PERRL EOM: EOM intact bilaterally Other: no nystagmus Neck Neck: trachea midline and supple Resp Auscultation: clear to auscultation bilaterally, no rales, no rhonchi and no wheezes Cardio Jugular venous pressure: no JVD Rate: regular rate and not tachycardic Rhythm: regular rhythm Heart Sounds: S1 normal, S2 normal, no gallops, no murmurs and no rubs GI Palpation: soft, not firm, no guarding, no masses, not rigid and nontender Skin General skin exam: no rashes or lesions noted Neuro General: patient alert, patient awake, patient oriented x3 and tone normal Extrem General: no calf tenderness and no edema Psych Appearance: grossly normal Mental Status: mental status grossly normal Speech and Movement: speech and movement normal Course <Jose Jacobo MD - Last Filed: 03/12/20 21:03> Vital Signs Vital signs: Vital Signs Temperature 36.7 C 03/12/20 19:22 Pulse 94 H 03/12/20 19:22 Respiratory Rate 16 03/12/20 19:22 Blood Pressure 219/113 H 03/12/20 19:22 Pulse Oximetry 98 03/12/20 19:22 Temperature 36.7 C 03/12/20 19:22 Temperature Source Skin 03/12/20 19:22 Pulse 94 H 03/12/20 19:22 Respiratory Rate 16 03/12/20 19:22 Respiratory Effort Non-Labored 03/12/20 19:30 Blood Pressure 219/113 H 03/12/20 19:22 Blood Pressure Position Sitting 03/12/20 19:22 Pulse Oximetry 98 03/12/20 19:22 Oxygen Delivery Method Room Air 03/12/20 19:22 Oxygen Flow Rate 0 03/12/20 19:22 Pain Level 0 03/12/20 19:22 Sign Out <Jose Jacobo MD - Last Filed: 03/12/20 21:03> Sign Out Data: Sign Out Comment: Care signed out to Dr. Sage with plan to follow-up labs and reassess patient for disposition Last updated by Jose Jacobo MD at 03/12/20 20:28
[2020-03-12 20:03] LABS: Abs Immature Grans 0.04 10^3/uL (0.0-0.06); Absolute Basophil Count 0.06 10^3/uL (0.0-0.2); Absolute Eosinophil Count 0.14 10^3/uL (0.0-0.7); Absolute Lymphocyte Count 2.18 10^3/uL (1.2-3.4); Absolute Monocyte Count 0.59 10^3/uL (0.1-0.8); Absolute Neutrophil Count 5.36 10^3/uL (1.2-6.7); Basophils % 0.7; Eosinophils % 1.7; HCT 49.9 % (36.0-46.0); HGB 16.6 g/dL (11.2-15.7); Immature Grans % 0.5; MCH 28.6 pg (27.0-33.0); MCHC 33.3 % (32.0-36.0); MPV 9.6 fL (8.0-11.0); Neutrophils % 64.1; Nucleated RBC 0 %; Platelet Count 222 10^3/uL (130-400); RDW 13.1 % (11.7-14.6); RDW-SD 40.7 fL; WBC 8.37 10^3/uL (4.4-10.8)
[2020-03-12 20:24] VITALS: BP 211/97; PULSE 89; RESP 18; O2SAT 98
[2020-03-12 20:24] LABS: ALT 34 U/L (14-59); AST 19 U/L (15-37); Albumin 3.2 g/dL (3.4-5.0); Alkaline Phosphatase 80 U/L (46-116); Anion Gap 7.3 mmol/L (3-11); BUN 21 mg/dL (7-18); Bilirubin, Total 0.3 mg/dL (0.2-1.0); CO2 28.7 mmol/L (21.0-32.0); CREATININE 0.9 mg/dL (0.55-1.02); Calcium 9.4 mg/dL (8.5-10.1); Chloride 97 mmol/L (98-107); Glucose 348 mg/dL (74-106); Magnesium 1.8 mg/dL (1.8-2.4); Sodium 133 mmol/L (136-145); Total Protein 7.5 g/dL (6.4-8.2)
[2020-03-12 20:25] VITALS: RESP 22
[2020-03-12 20:26] LABS: Troponin I < 0.05 ng/mL (<0.06)
[2020-03-12 21:06] VITALS: BP 192/93; PULSE 89; RESP 18; O2SAT 99
--- NOTE | 2020-03-12 21:18 | NUR.NOTE ---
Nursing Note: EKG ordered, MD cancelled per patient request.
[2020-03-12 21:43] LABS: Creatine Kinase 47 U/L (26-192)
== END 2020-03-12 21:10 | disposition home or self-care (01) ==
PROVIDERS: Student in an Organized Health Care Education/Training Program; Emergency Provider Emergency Medicine; PCP Family Medicine
DX: M79.10 Myalgia, unspecified site (principal); I10 Essential (primary) hypertension; R53.1 Weakness; R42 Dizziness and giddiness; F41.9 Anxiety disorder, unspecified
CPT/HCPCS: 36415; 80053; 82550; 99284; 83735; 84443; 84484; 85025

== ENCOUNTER → 2020-04-07 08:01 | Outpatient (BNVA) | payer OTHER, SELFPAY | PROVIDERS: PCP Family Medicine; Referring Provider Family Medicine; Visit Provider Psychiatry & Neurology Neurology | DX: I95.1 Orthostatic hypotension (principal); I63.50 Cerebral infarction due to unspecified occlusion or stenosis of unspecified cerebral artery; G90.9 Disorder of the autonomic nervous system, unspecified; G89.29 Other chronic pain | CPT/HCPCS: 99215 ==

== ENCOUNTER → 2020-05-19 07:51 | Outpatient (BNVA) | payer MEDICARE, MEDICAID, SELFPAY | PROVIDERS: PCP Family Medicine; Referring Provider Family Medicine; Visit Provider Psychiatry & Neurology Neurology | DX: R55 Syncope and collapse; G90.9 Disorder of the autonomic nervous system, unspecified; G43.009 Migraine without aura, not intractable, without status migrainosus; G43.109 Migraine with aura, not intractable, without status migrainosus; G89.29 Other chronic pain; I63.50 Cerebral infarction due to unspecified occlusion or stenosis of unspecified cerebral artery; G81.91 Hemiplegia, unspecified affecting right dominant side; R29.6 Repeated falls | CPT/HCPCS: 99214 ==

== ENCOUNTER 2020-07-07 10:21 | Outpatient (CLI) | payer MEDICARE, MEDICAID, SELFPAY ==
--- NOTE | 2020-07-07 16:00 | DI.RAD_ITS ---
Exam(s) XR HIP RT COMPLETE AP PELVIS EXAM: XR HIP RT COMPLETE AP PELVIS CLINICAL HISTORY: s/p fall - right hip pain, M25.551. TECHNIQUE: 2D digital imaging was performed. COMPARISON: No exams were available for comparison FINDINGS: There is a 1.3 x 1.0 cm calcification off the superolateral aspect of the right hip acetabulum which is probably an intra-articular loose body in the most superior recess of the joint or sequela of prio r nonacute appearing fracture. There is no joint space narrowing in the hip. Opposite-left hip appe ars unremarkable. Sacroiliac joints and symphysis pubis unremarkable. No lytic osseous lesions evid ent. IMPRESSION: DATA REPOSITORY: RADIATION DOSE DELIVERED:
--- NOTE | 2020-07-07 16:00 | DI.RAD_ITS ---
Exam(s) XR SHOULDER RT COMPLETE 2+V EXAM: XR SHOULDER RT COMPLETE 2+V CLINICAL HISTORY: s/p fall - right shoulder pain, M25.511. TECHNIQUE: 2D digital imaging was performed. COMPARISON: No exams were available for comparison FINDINGS: There is no evidence of acute fracture or dislocation. There is a 5 x 4 millimeter calcific density in the soft tissues adjacent to the greater tuberosity consistent with calcific tendinitis at the ins ertional aspect of the rotator cuff. No other calcifications evident. No degenerative changes evide nt. IMPRESSION: Calcific rotator cuff tendinitis. DATA REPOSITORY: RADIATION DOSE DELIVERED:
== END 2020-07-07 10:41 ==
PROVIDERS: Visit Provider Nurse Practitioner Family
DX: M25.511 Pain in right shoulder (principal); M75.31 Calcific tendinitis of right shoulder; M25.551 Pain in right hip; M25.851 Other specified joint disorders, right hip
CPT/HCPCS: 73030; 73502

== ENCOUNTER → 2020-07-21 13:24 | Outpatient (BNVA) | payer MEDICARE, MEDICAID, SELFPAY | PROVIDERS: Referring Provider Family Medicine; Visit Provider Psychiatry & Neurology Neurology | DX: I69.351 Hemiplegia and hemiparesis following cerebral infarction affecting right dominant side (principal); I95.1 Orthostatic hypotension; R55 Syncope and collapse; G90.9 Disorder of the autonomic nervous system, unspecified; G43.009 Migraine without aura, not intractable, without status migrainosus; G43.109 Migraine with aura, not intractable, without status migrainosus; G89.29 Other chronic pain | CPT/HCPCS: 99214 ==

== ENCOUNTER → 2020-07-24 09:25 | Outpatient (BNVA) | payer MEDICARE, MEDICAID, SELFPAY | PROVIDERS: Referring Provider Family Medicine; Visit Provider Student in an Organized Health Care Education/Training Program | DX: M65.332 Trigger finger, left middle finger (principal); M75.31 Calcific tendinitis of right shoulder; E11.9 Type 2 diabetes mellitus without complications; F17.210 Nicotine dependence, cigarettes, uncomplicated | CPT/HCPCS: 99213 ==

== ENCOUNTER 2020-08-04 08:00 | Day surgery (SDC) | payer MEDICARE, MEDICAID, SELFPAY ==
[2020-08-04 08:05] VITALS: BP 113/62; PULSE 91; RESP 16; TEMP 36.3; O2SAT 99
[2020-08-04] MEDS: Sodium Citrate 30 ML CUP (09:47)
--- NOTE | 2020-08-04 09:54 | PDOC.DSDIS_ITS ---
Discharge Plan Disposition Patient Disposition: HOME Condition: Good Discharge Details Reason For Visit: LMF trigger release Attending Provider: Pee Darnell Primary Care Provider: Paula Harris Home Meds and New Rx's Prescriptions: New acetaminophen 500 mg capsule 1,000 mg PO Q8H PRN PRNQty: 90 RF: 0 ibuprofen 600 mg tablet 600 mg PO TID PRN (Reason: pain) Qty: 30 RF: 0 Continued hydrocortisone-acetic acid 1-2 % drops 4 drp otic (ear) TID PRN (Reason: Ear itch) Qty: 10 RF: 0 halobetasol propionate 0.05 % cream 1 applic topical DAILY Qty: 15 RF: 3 Victoza 2-Ozzie 0.6 mg/0.1 mL (18 mg/3 mL) pen injector 1.2 mg subcut DAILY Qty: 6 RF: 6 polyethylene glycol 3350 [Miralax] 17 gram/dose powder 17 g PO DAILY Qty: 510 RF: 3 prazosin 5 mg capsule 10 mg PO QHS Qty: 180 RF: 3 baclofen 10 mg tablet 10 mg PO TID PRN (Reason: muscle spasm) Qty: 90 RF: 0 (DME) lancets 28 gauge misc 1 ea Miscellaneous TID Qty: 400 RF: 6 (DME) pen needle, diabetic [BD Ultra-Fine Lorraine Pen Needle] 32 gauge x 5/32 needle See Rx Instructions .ROUTE .MEDSUPPLY Qty: 100 RF: 6 lisinopril 40 mg tablet 20 mg PO DAILY Qty: 90 RF: 3 isosorbide mononitrate 30 mg tablet extended release 24 hr 30 mg PO DAILY RF: 0 Emgality Pen 120 mg/mL pen injector 120 mg subcut QMONTH Qty: 1 RF: 11 albuterol sulfate [ProAir HFA] 90 mcg/actuation HFA aerosol inhaler 2 puff Inhalation Q6H PRN PRN (Reason: shortness of breath or wheezing) Qty: 18 RF: 6 aspirin [Ecotrin Low Strength] 81 mg tablet,delayed release (DR/EC) 81 mg PO DAILY Qty: 90 RF: 3 triamcinolone acetonide 0.5 % cream 1 applic TP BID Qty: 454 RF: 6 nitroglycerin [Nitrostat] 0.4 mg tablet, sublingual 0.4 mg Sublingual PRN Qty: 60 RF: 3 sennosides [senna] 8.6 mg tablet 34.4 mg PO QHS RF: 0 acetaminophen 325 mg capsule 650 mg PO Q4H PRNRF: 0 (DME) blood-glucose meter Misc See Rx Instructions .ROUTE .MEDSUPPLY Qty: 1 RF: 0 (DME) Blood Glucose Test Strip See Rx Instructions .ROUTE .MEDSUPPLY Qty: 200 RF: 3 pantoprazole [Protonix] 40 mg tablet,delayed release (DR/EC) 40 mg PO DAILY Qty: 90 RF: 3 quetiapine 400 mg tablet 800 mg PO QHS Qty: 180 RF: 3 sertraline 100 mg tablet 200 mg PO DAILY Qty: 90 RF: 3 amlodipine 5 mg tablet 5 mg PO DAILY Qty: 90 RF: 3 clopidogrel 75 mg tablet 75 mg PO DAILY Qty: 90 RF: 3 metoprolol succinate 100 mg tablet extended release 24 hr 100 mg PO DAILY Qty: 90 RF: 3 (DME) diaper,brief,adult,disposable Misc See Rx Instructions .ROUTE .MEDSUPPLY Qty: 10 RF: 0 atorvastatin 80 mg tablet 80 mg PO DAILY Qty: 90 RF: 3 insulin glargine 100 unit/mL solution 45 unit subcut BID MDD 90 units Qty: 30 RF: 3 (DME) Comfort Shield Adult Diaper Misc See Rx Instructions .ROUTE .MEDSUPPLY Qty: 120 RF: 12 (DME) Knee ankle foot orthotic (KAFO) See Rx Instructions .Route .MEDSUPPLY Qty: 1 RF: 0 insulin aspart U-100 [Novolog Flexpen U-100 Insulin] 100 unit/mL (3 mL) Insulin Pen SUBCUT RF: 0 lorazepam 1 mg Tablet 1 mg PO QHS PRNRF: 0 ondansetron 4 mg Tablet,Disintegrating 4 mg PO Q6H PRNRF: 0 Discontinued ibuprofen 200 mg tablet 400 mg PO Q6H PRNRF: 0 Discharge Instructions Stand Alone Forms: Carie Diaz Finger Release Referrals: Pee Darnell MD [ [facility] STAFF PHYSICIAN] - Activity:: Activity as Tolerated Remove Dressings/Wound Care:: 48 hours Shower/Bathe:: 48 hours Diet:: As Tolerated Discharge Orders Discharge Orders: Discharge Order (Routine); Ordered 08/04/20 Ordered By: Javon Acosta DS: Diagnosis Discharge Diagnosis (1) Trigger finger, left middle finger: Status: Acute
[2020-08-04 09:55] VITALS: BP 119/60; PULSE 82; RESP 18; TEMP 36.4; O2SAT 94
--- NOTE | 2020-08-04 10:06 | W.PM.OP ---
Date of service: 08/04/20 Time of Service: 09:49 Operative Note Operative Note DATE OF PROCEDURE: 08/04/20 PRE-OP DIAGNOSIS: Left Middle Finger Trigger Finger POST-OP DIAGNOSIS: same PROCEDURE: Trigger Finger Release - Left Middle Finger SURGEON: Pee Darnell ANESTHESIA TYPE: Local By Surgeon Refer to Anesthesia Record ESTIMATED BLOOD LOSS: 0 PATHOLOGY: none sent TOURNIQUET TIME: 0 COMPLICATIONS: None Patient was transported to: same day Patient's condition: stable Indications: I have seen Tita in clinic for symptoms of a trigger finger. The catching, clicking, locking, and pain limited function. The diagnosis of trigger finger was evident. The symptoms had not responded to conservative measures. I discussed trigger finger release with the patient. I reviewed the risks of the procedure to include, but not limited to, bleeding, infection, pain, stiffness, incomplete release, damage to nerves or vessels, continued catching, recurrence. Despite these risks, the patient elected to proceed. Findings: There was a tightened A1 elda which was released. The flexor tendons were inspected and the patient was able to move the finger without any catching, clicking, or locking. Procedure Description: Tita was greeted in the preoperative holding area where the correct side was identified and marked. The consent was reviewed with the patient and signed. All questions were answered. Tita was taken back to the operating room. The patient was placed into the supine position on the operating room table with the left arm on an arm board. All bony prominences were well padded. No prophylactic antibiotics were administered since this was a clean, elective hand surgical case. The left arm was then prepped with Chloraprep and draped in a standard fashion with stockinette and extremity drape. A timeout to confirm correct identity, side and site, procedure, allergies, anesthesia, and medical concerns was performed. The surgical site was marked as a longitudinal incision directly over the A1 elda of the involved digit. This was confirmed with palpation during finger flexion. This area, overlying the metacarpal head, was then anesthetized with 1% Lidocaine. The patient tolerated this well and once the anesthetic had setup, the procedure began. A longitudinal incision was made through skin only, approximately 1cm. The deep tissues were dissected bluntly. Once the A1 elda and flexor tendons were identified the soft tissue including neurovascular structures were retracted medially and laterally. There were no crossing structures over the A1 elda. The proximal edge of the elda was identified and the elda was incised with tenotomy scissors. There was a release of the tendons once this was fully released. There was also a alvarado of fluid at this point. The tendons were then removed from the wound and inspected. Excess synovium was resected. The tendons were then returned and the patient was asked to move the finger into deep flexion and back to extension. There was no recreation of the pre-operative symptoms. The hand was then once more inspected for any A0 elda or area of possible constriction. The wound was then irrigated and the skin was closed with a 4-0 Nylon. This was dressed with gauze and a Conform dressing. The patient tolerated the procedure well and was returned to the Same Day Surgery area in a stable condition suffering no known complication.
== END 2020-08-04 10:15 | disposition home or self-care (01) ==
PROVIDERS: Visit Provider Student in an Organized Health Care Education/Training Program
PROC: (CPT 26055; principal; 2020-08-04 09:30)
DX: M65.332 Trigger finger, left middle finger (principal)
CPT/HCPCS: 26055

== ENCOUNTER 2020-08-07 03:41 | Outpatient (CLI) | payer MEDICARE, MEDICAID, SELFPAY ==
--- NOTE | 2020-08-07 07:15 | DI.US_ITS ---
Exam(s) US SOFT TISSUE HEAD OR NECK EXAM: US SOFT TISSUE HEAD OR NECK CLINICAL HISTORY: right neck swelling,RT SIDED NECK PAIN, M54.2. TECHNIQUE: Ultrasound was performed using standard protocol. COMPARISON: No exams were available for comparison FINDINGS: Sonographic assessment utilizing grayscale and color Doppler imaging was performed and targeted to th e area of clinical concern. No soft tissue edema or localized fluid collection is seen. Two normal size and appearance lymph nod es are noted measuring 11 and 6 millimeters in greatest dimension respectively. IMPRESSION: No evidence of suspicious mass or adenopathy. DATA REPOSITORY:
--- NOTE | 2020-08-07 07:15 | DI.RAD_ITS ---
Exam(s) XR CLAVICLE RT EXAM: XR CLAVICLE RT CLINICAL HISTORY: right clavicular pain, r/o fracture, hx of falls,M89.8X1 TECHNIQUE: 2D digital imaging was performed. COMPARISON: CR XR SHOULDER RT COMPLETE 2+V from 07/07/2020 CR XR SHOULDER RT COMPLETE 2+V from 07/07/2020 FINDINGS: BONES: No acute fracture is present. No bony destructive lesion is seen. JOINTS: No dislocation present. Degenerative changes of the glenohumeral joint. Mild spurring at th e AC joint. SOFT TISSUE: Calcific tendinosis again demonstrated. IMPRESSION: Degenerative changes and calcific tendinosis. No evidence of fracture. DATA REPOSITORY: RADIATION DOSE DELIVERED:
== END 2020-08-07 04:01 ==
PROVIDERS: Visit Provider Nurse Practitioner Family
DX: M54.2 Cervicalgia (principal); R22.1 Localized swelling, mass and lump, neck; M19.011 Primary osteoarthritis, right shoulder; M89.8X1 Other specified disorders of bone, shoulder; M79.89 Other specified soft tissue disorders; W19.XXXA Unspecified fall, initial encounter
CPT/HCPCS: 76536; 73000

== ENCOUNTER → 2020-08-13 11:49 | Outpatient (BNVA) | payer MEDICARE, MEDICAID, SELFPAY | PROVIDERS: Visit Provider Student in an Organized Health Care Education/Training Program | DX: Z47.89 Encounter for other orthopedic aftercare (principal); M75.31 Calcific tendinitis of right shoulder; M65.332 Trigger finger, left middle finger; W19.XXXA Unspecified fall, initial encounter | CPT/HCPCS: 99213 ==

== ENCOUNTER 2020-08-19 19:10 | Inpatient (IN) | payer MEDICARE, MEDICAID, SELFPAY ==
[2020-08-19 19:14] VITALS: BP 160/85; PULSE 89; RESP 20; TEMP 36; O2SAT 96
--- NOTE | 2020-08-19 19:23 | ED.GENADUL_ITS ---
Discharge Plan Disposition Patient Disposition: [facility] Condition: Poor Discharge Details Chief Complaint: Abd Prob Clinical Impression: Abdominal mass, Abdominal pain Admit Date/Time: 08/19/20 22:19 Admit Provider: Tiara Mccormick Attending Provider: Tiara Mccormick Primary Care Provider: Paula Harris ED Provider: Zainab Abel Discharge Data Discharge Date/Time-TO BE ENTERED AT DEPARTURE: 08/19/20 23:15 Medical Decision Making Patient is a pleasant 55-year-old female presenting today with chief complaint of epigastric discomfort x3 days that radiates into her chest. States the pain is worse with eating. Relieved by nothing. Patient was seen at [facility] on Monday, the day the pain began, at which time a cardiac and PE work- up was completed per patient's report. She states that they did do a CT, presumably for PE, with no abnormalities noted. Her description includes that of a delta troponin. She denies any shortness of breath. Denies any pain radiating into her back. Past surgical history pertinent for cholecystectomy, appendectomy and section. Patient is also undergone catheterization, she is on Plavix and aspirin. States that on Monday she had diarrhea which is since subsided. Reports that she has some nausea but no vomiting. Denies any fevers or chills. Patient denies any vaginal discharge, no change in urinary habits. On exam, patient appears nontoxic. She is hypertensive at 160/85, vital signs otherwise stable. She has epigastric pain but no peritoneal findings. Past medical history is pertinent for anxiety, chronic constipation, COPD, CAD, depression, hypertension, gastroparesis, hyperlipidemia, ALEXA, personality disorder, schizophrenia, active smoker, type 2 diabetes. Denies ETOH use. Concerned at this time for GERD, peptic ulcer, pancreatitis vs. other. Considered ACS or other pulmonary/cardiac source. Patient did have complete evaluation of this at [facility], will obtain these previous notes for review. Will obtain ECG, labs. Physical exam is not consistent with surgical abdomen at this time. As her pain has worsened, will obtain CT imaging. Will give GI cocktail. Labs reviewed. Mild leukocytosis with WBC of 11.2. Troponin WNL. Magnesium low at 1.6, will replenish this. Patient reevaluated. She reports pain worse after GI cocktail. Will give Tylenol and Protonix. CT reviewed by radiologist: FINDINGS: Lungs: There is a 3 mm nodule within the right middle lobe (series 4, image 7). Otherwise the lung bases are unremarkable. Liver: Several hypodense lesions are seen through of the liver. Largest is located within segment 4 B and measures 1.7 cm (series 4, image 34). Gallbladder and bile ducts: Patient is status post cholecystectomy. Pancreas: Normal. No ductal dilation. Spleen: Normal. No splenomegaly. Adrenal glands: Normal. No mass. Kidneys and ureters: Normal. No hydronephrosis. Stomach and bowel: Unremarkable. No obstruction. No mucosal thickening. Appendix: No evidence of appendicitis. Intraperitoneal space: There is severe concentric thickening of a short segment of distal ascending colon just proximal to the hepatic flexure, with significant surrounding mesenteric fat stranding and fluid. Vasculature: Unremarkable. No abdominal aortic aneurysm. Lymph nodes: Multiple enlarged jayy hepatis, aortocaval and mesenteric lymphadenopathy. The largest aortocaval node measures 2.2 cm (series 4, image 36). There is a heterogeneous soft tissue nodule within the jayy hepatis measuring 1.8 cm (series 4, image 29). There is a large mesenteric mass measuring 5 x 2 cm (series 4, image 56). Urinary bladder: Unremarkable as visualized. Reproductive: Unremarkable as visualized. Bones/joints: Unremarkable. No acute fracture. Soft tissues: See Lymph nodes finding. IMPRESSION: 1. Short-segment concentric thickening of the ascending colon highly suspicious for malignant neoplasm. There is significant inflammatory changes surrounding this segment as well as surrounding fluid, raises suspicion for a possible perforation. 2. Jayy hepatis, retroperitoneal mesenteric lymphadenopathy suspicious for metastatic disease. 3. New hypodense hepatic lesions suspicious for metastatic liver disease. 4. Nonspecific 3 mm parenchymal lung nodule within the right middle lobe Consulted with our general surgeon who advises, particularly with liver lesions, that patient would be better served at higher level of care. Consulted with Dr. Beltrán at [facility]. He reviewed hx. Patient last had colonoscopy at [facility] in 2018 with no correlating abnormality at that time. He reviewed imaging and advised that patient does not need to emergently to the OR but agrees that she needs to be admitted and moinotred based on concern for possible perforation. [facility] does not have beds currently but are hoping to take her at [facility] facility tomorrow. He advised antibiotics, recommended cefepime and flagyl. Patient is allergic to penicillins. However, she has received cefazolin directly without difficulty. Will treat with cefepime and Flagyl as recommended by Dr. Beltrán.. Discussed findings/recommendations at length with the patient. She was unaware of all ofthe findings on CT. She agrees to admission with plan to transfer to [facility] for surgical intervention once bed becomes avialable. All of her questions and concerns were addressed. She continued to have discomfort although improved after tylenol. Will give Dilaudid. Consulted with Dr. Mccormick who agrees to admission. Admission orders placed at her request. Patient to be NPO after midnight in prep for possible surgical intervention tomorrow. Tolerating PO intake well here at this time. Patient transferred to medical surgical unit in stable condition. HPI General Mode of arrival: ambulatory . Date/Time Provider Initiated Documentation: 08/19/20 19:13 . Limitations to Documentation: no limitations . Information obtained by: patient and RN notes reviewed . History of Present Illness 55 year old F presents to the emergency department with the chief complaint of abdominal discomfort, described as severe, with intensity rated at 10. Quality is described as stabbing, and is localized to the abdomen. Patient reports radiation to (into chest). Patient started experiencing this day(s) (3) and it has been constant. No relieving factors improve symptom(s), Eating worsens symptoms . Patient notes chest pain, loss of appetite and nausea/vomiting (nausea, no vomiting); denies cough, fever/chills, rash, shortness of breath and weakness. Patient did receive the following treatments prior to arrival, none Related Data Home Medications Medication Instructions Recorded Confirmed albuterol sulfate 90 mcg/actuation 2 puff INHALATION Q6H PRN PRN #18 03/15/19 08/19/20 aerosol inhaler gm aspirin 81 mg tablet,delayed 81 mg PO DAILY #90 tab 03/15/19 08/19/20 release triamcinolone acetonide 0.5 % 1 applic TP BID #454 gm 03/15/19 08/19/20 topical cream nitroglycerin 0.4 mg sublingual 0.4 mg SUBLINGUAL PRN #60 tab 11/25/19 08/19/20 tablet lancets 28 gauge #400 ea 01/16/20 08/19/20 lisinopril 40 mg tablet 20 mg PO DAILY #90 tab 01/16/20 08/19/20 pen needle, diabetic 32 gauge x #100 ea 01/16/20 08/19/20 halobetasol propionate 0.05 % 1 applic TOPICAL DAILY #15 g 01/28/20 08/19/20 topical cream sennosides 8.6 mg tablet 34.4 mg PO QHS tab 04/01/20 08/19/20 isosorbide mononitrate 30 mg 30 mg PO DAILY 04/07/20 08/19/20 tablet,extended release 24 hr blood sugar diagnostic #200 ea 04/13/20 08/15/20 blood-glucose meter #1 ea 04/13/20 08/19/20 liraglutide 0.6 mg/0.1 mL (18 mg/3 1.2 mg SUBCUT DAILY #6 ml 04/16/20 08/19/20 mL) subcutaneous pen injector pantoprazole 40 mg tablet,delayed 40 mg PO DAILY #90 tab-cap 04/21/20 08/19/20 release quetiapine 400 mg tablet 800 mg PO QHS #180 tab 04/21/20 08/19/20 sertraline 100 mg tablet 200 mg PO DAILY #90 tab 04/21/20 08/19/20 amlodipine 5 mg tablet 5 mg PO DAILY #90 tab 04/24/20 08/19/20 clopidogrel 75 mg tablet 75 mg PO DAILY #90 tab 04/24/20 08/19/20 metoprolol succinate 100 mg 100 mg PO DAILY #90 tab 04/24/20 08/19/20 tablet,extended release 24 hr prazosin 5 mg capsule 10 mg PO QHS #180 cap 05/05/20 08/19/20 galcanezumab-gnlm 120 mg/mL 120 mg SUBCUT QMONTH #1 ml 05/19/20 08/19/20 subcutaneous pen injector polyethylene glycol 3350 17 17 g PO DAILY #510 g 05/21/20 08/19/20 gram/dose oral powder diaper,brief,adult,disposable #10 ea 05/22/20 08/19/20 atorvastatin 80 mg tablet 80 mg PO DAILY #90 tab 05/28/20 08/19/20 insulin glargine 100 unit/mL 45 unit SUBCUT BID #30 ml MDD 90 05/28/20 08/19/20 subcutaneous solution units diaper,brief,adult,disposable #120 ea 04/19/21 07/07/21 Knee ankle foot orthotic (KAFO) #1 ea 06/02/20 08/15/20 insulin aspart U-100 [Novolog unit SUBCUT 08/04/20 08/15/20 Flexpen U-100 Insulin] lorazepam 1 mg PO QHS PRN 08/04/20 08/19/20 Previous Rx's Medication Instructions Recorded albuterol sulfate 90 mcg/actuation 2 puff INHALATION Q6H PRN PRN #18 03/15/19 aerosol inhaler gm aspirin 81 mg tablet,delayed 81 mg PO DAILY #90 tab 03/15/19 release triamcinolone acetonide 0.5 % 1 applic TP BID #454 gm 03/15/19 topical cream nitroglycerin 0.4 mg sublingual 0.4 mg SUBLINGUAL PRN #60 tab 11/25/19 tablet lancets 28 gauge #400 ea 01/16/20 lisinopril 40 mg tablet 20 mg PO DAILY #90 tab 01/16/20 pen needle, diabetic 32 gauge x #100 ea 01/16/20 halobetasol propionate 0.05 % 1 applic TOPICAL DAILY #15 g 01/28/20 topical cream blood sugar diagnostic #200 ea 04/13/20 blood-glucose meter #1 ea 04/13/20 liraglutide 0.6 mg/0.1 mL (18 mg/3 1.2 mg SUBCUT DAILY #6 ml 04/16/20 mL) subcutaneous pen injector pantoprazole 40 mg tablet,delayed 40 mg PO DAILY #90 tab-cap 04/21/20 release quetiapine 400 mg tablet 800 mg PO QHS #180 tab 04/21/20 sertraline 100 mg tablet 200 mg PO DAILY #90 tab 04/21/20 amlodipine 5 mg tablet 5 mg PO DAILY #90 tab 04/24/20 clopidogrel 75 mg tablet 75 mg PO DAILY #90 tab 04/24/20 metoprolol succinate 100 mg 100 mg PO DAILY #90 tab 04/24/20 tablet,extended release 24 hr prazosin 5 mg capsule 10 mg PO QHS #180 cap 05/05/20 galcanezumab-gnlm 120 mg/mL 120 mg SUBCUT QMONTH #1 ml 05/19/20 subcutaneous pen injector polyethylene glycol 3350 17 17 g PO DAILY #510 g 05/21/20 gram/dose oral powder atorvastatin 80 mg tablet 80 mg PO DAILY #90 tab 05/28/20 insulin glargine 100 unit/mL 45 unit SUBCUT BID #30 ml MDD 90 05/28/20 subcutaneous solution units diaper,brief,adult,disposable #120 ea 06/01/20 Knee ankle foot orthotic (KAFO) #1 ea 06/02/20 Allergies Allergy/AdvReac Type Severity Reaction Status Date / Time levofloxacin [From Levaquin] Allergy Verified 08/19/20 18:26 Penicillins Allergy Verified 08/19/20 18:26 pioglitazone HCl [From Actos] Allergy Verified 08/19/20 18:26 gabapentin AdvReac so sick Verified 08/19/20 18:26 vomitting/headache metformin AdvReac DIARRHEA Verified 08/19/20 18:26 General Stated Complaint: Abd Prob TEETEE: 3 Review of Systems Constitutional Constitutional: Reports as per HPI, Denies chills, Denies fatigue, Denies fever(s) and Denies headache(s) ENT Ears, Nose, Mouth, and Throat: Denies headache(s) Cardiovascular Cardiovascular: Reports as per HPI, Denies chest pain and Denies dyspnea Respiratory Respiratory: Reports as per HPI, Denies cough and Denies dyspnea Gastrointestinal Gastrointestinal: Reports as per HPI Musculoskeletal Musculoskeletal: Reports as per HPI and Denies back pain Integumentary/Breasts Skin/Breast: Reports as per HPI and Denies rash Neurologic Neurologic: Reports as per HPI and Denies headache(s) Endocrine Endocrine: Denies fatigue [facility] Medical History Alopecia Anxiety (03/20/12) Bowel incontinence After stroke Carpal tunnel syndrome left Chest pain (08/23/12) neg. MPI; esophageal spasm per UGI Chronic constipation COPD (chronic obstructive pulmonary disease) Coronary artery disease Depressive disorder (03/20/12) Dizziness (03/20/12) Dysfunctional uterine bleeding Essential hypertension (11/15/12) SBP goal 120-140 Dr. Arreaga Gastroparesis (04/17/14) DR. FOLEY-04/17/14 Hirsutism (03/20/12) Hyperlipidemia Hypokalemia Insomnia, unspecified (03/20/12) Medial malleolar fracture (09/21/18) Migraine headache with aura Migraine headache without aura Narcolepsy without cataplexy Pt. denies this Non-alcoholic fatty liver disease (04/06/12) Onycholysis Onychomycosis Orthostasis ALEXA (obstructive sleep apnea) Papilloma of oral cavity Personality disorder MULTIPLE Postmenopausal Bleeding Posttraumatic stress disorder (03/20/12) multiple admissions to care bed. While waking up from anesthesia say name first before touching patient. Schizophrenia Smoker Syncope and collapse Type II diabetes mellitus with complication, uncontrolled (01/22/14) Goal AIC <7 Dr. Arreaga Surgical History History of appendectomy (~10/02/17) History of bilateral ligation of fallopian tubes History of section History of esophagogastroduodenoscopy (01/03/14) History of right and left heart catheterization 03/30/15 & 05/15/17 - [facility] Postoperative state Status post carpal tunnel release (~2016) Left Status post cholecystectomy Trigger finger, left middle finger S/P Release: 08/04/2020 Family History Mother Substance abuse Diabetes Heart disease Hypertension Father Substance abuse Diabetes Heart disease Hypertension Sister Cancer Heart disease Social History Smoking/Tobacco Use Status: Current every day Tobacco Type: cigarettes Years smoked: 40 Smoking risk assessment performed?: Yes Alcohol Intake: current Alcohol Intake frequency: holidays/special occasions only Alcohol type: wine Drug use: Daily Substance use type: marijuana Adopted: No Caregiver/Support person: No Foster care: No Household members: none Number of Children: 2 Do you need help understanding health information?: Never current occupation: Disabled Pets and animals: Yes (Therapy dog) Sexually active: No Do you think of yourself as: straight/heterosexual Current gender identity: female What is your relationship status?: Panel score (0-1 are the most socially isolated patients): 0 Seatbelt use: never Do you feel safe at home: Yes Do you feel safe in your relationship?: Yes Exam Const General: cooperative, healthy appearing, comfortable, no acute distress and well developed Nutritional Appearance: well nourished and overweight Orientation: alert and awake [facility] Head: normal to inspection Mouth: moist mucous membranes Resp Effort & Inspection: normal respiratory effort, able to speak in complete sentences and no respiratory distress Auscultation: clear to auscultation bilaterally, no rales, no rhonchi and no wheezes Cardio Rate: regular rate Rhythm: regular rhythm Heart Sounds: S1 normal and S2 normal GI Inspection: normal to inspection and incision (well healed previous surgical incisions) Palpation: soft, no hepatosplenomegaly, not firm, no guarding, no hernias, no pulsatile masses, not rigid and tender in the epigastrum; with no rebound tenderness Percussion: normal to percussion Auscultation: normal bowel sounds Back/Spine/Pelvis Back: no CVA tenderness Skin General skin exam: no rashes or lesions noted Trauma: no lacerations or abrasions Neuro General: patient alert and patient awake Cognition: normal cognition Speech: speech normal Gait: normal gait Psych Appearance: grossly normal and well kempt Mental Status: mental status grossly normal Speech and Movement: speech and movement normal Course Vital Signs Vital signs: Vital Signs Temperature 36.0 C L 08/19/20 19:14 Pulse 89 08/19/20 19:14 Respiratory Rate 20 08/19/20 19:14 Blood Pressure 160/85 H 08/19/20 19:14 Pulse Oximetry 96 08/19/20 19:14 Temperature 36.0 C L 08/19/20 19:14 Temperature Source Temporal Artery Scan 08/19/20 19:14 Pulse 89 08/19/20 19:14 Respiratory Rate 20 08/19/20 19:14 Respiratory Effort Non-Labored 08/19/20 19:19 Blood Pressure 160/85 H 08/19/20 19:14 Blood Pressure Position Sitting 08/19/20 19:14 Pulse Oximetry 96 08/19/20 19:14 Oxygen Delivery Method Room Air 08/19/20 19:14 Oxygen Flow Rate 0 08/19/20 19:14 Pain Level 10 08/19/20 19:14
--- NOTE | 2020-08-19 19:30 | DI.CT_ITS ---
Exam(s) CT ABDOMEN PELVIS W EXAM: CT ABDOMEN PELVIS W CLINICAL HISTORY: upper abdominal pain. TECHNIQUE: Imaging Protocol: Axial computed tomography images with coronal and sagittal reformatted images were created and reviewed CONTRAST MATERIAL: Intravenous: Omnipaque 350 Contrast volume:structured data in ml Oral: yes / no COMPARISON: CT ABD PELVIS WITH CONTRAST from 03/12/2012 CT ABD PELVIS WITH CONTRAST from 03/12/[address] HEAD/BRAIN WO CONTRAST from 01/09/[address] HEAD/BRAIN WO CONTRAST from 01/09/[address] ABDOMEN PELVIS W from 10/30/[address] ABDOMEN PELVIS W from 10/30/2019 CR,XR XR CHEST 2V PA LATERAL from 11/12/[address] CTA HEAD/NECK W/ AND/OR WO CONT-M2 from 03/14/[address] HEAD STROKE PROTOCOL from 03/14/[address] HEAD STROKE PROTOCOL from 03/14/2020 FINDINGS: ABDOMEN: Lung Bases: 3 millimeter nodule right lower lobe, not definitely seen on previous exam, nonspecific. Liver: Multiple low-density lesions which were not seen on previous exams and have the appearance of metastatic lesions. Largest measures 1.7 cm in diameter, in the left lobe. Gallbladder and biliary tract: Status post cholecystectomy. No biliary dilation. Pancreas: Somewhat atrophic. Normal density, no abnormal calcifications or inflammatory process. Spleen: Normal. Kidneys: Normal size, contour and axis. No radiodense stones or obstructive uropathy. No masses seen. Adrenal glands: No masses seen. Abdominal Aorta: Abdominal portion non-dilated. Atherosclerotic changes. PELVIS: Bladder: Symmetric distention, no gross wall thickening. Bowel: Marked wall thickening and surrounding stranding in the fat of the ascending colon. There is s urrounding fluid. Findings are suspicious for a perforated mass. No free air is seen. There are adjac ent enlarged lymph nodes. There is no evidence of obstruction. No foreign body is seen. Peritoneal cavity: Marked infiltration in the fat surrounding the ascending colon and adjacent fluid. Small amount of fluid in the low pelvis. Bones: Degenerative changes. No destructive lesions identified. Reproductive organs: Within normal limits. Lymph nodes: Multiple abnormally enlarged lymph nodes in the jayy hepatis, around the celiac axis an d aortic caval region. The largest node measures 3 cm, in the aortocaval region. Enlarged mesenteric lymph nodes right lower quadrant and mid abdomen. Impression: Findings suspicious for a mass with surrounding infiltration in the fat involving the ascending colon near the hepatic flexure. Surrounding fluid collections could indicate perforation. Multiple enlarge d mesenteric and retroperitoneal lymph nodes. Liver metastases. RADIATION DOSE DELIVERED: 1,414.25mGy.cm Total DLP DATA REPOSITORY: All CT scans at this facility are submitted to the National Radiology Data Registry (NRDR) Dose Index Registry (DIR) with the [employer] (ACR). RADIATION OPTIMIZATION: All CT scans at this facility use at least one of these dose optimization te chniques: automated exposure control; mA and/or kV adjustment per patient size (includes targeted exa ms where dose is matched to clinical indication); or iterative reconstruction.
[2020-08-19 19:48] LABS: Abs Immature Grans 0.07 10^3/uL (0.0-0.06); Absolute Basophil Count 0.08 10^3/uL (0.0-0.2); Absolute Eosinophil Count 0.45 10^3/uL (0.0-0.7); Absolute Lymphocyte Count 1.59 10^3/uL (1.2-3.4); Absolute Monocyte Count 0.92 10^3/uL (0.1-0.8); Basophils % 0.7; HCT 37.9 % (36.0-46.0); HGB 12.4 g/dL (11.2-15.7); Immature Grans % 0.6; Lymphocytes % 14.2; MCH 27.3 pg (27.0-33.0); MCHC 32.7 % (32.0-36.0); MCV 83.3 fL (80-95); MPV 8.8 fL (8.0-11.0); Monocytes % 8.2; Neutrophils % 72.3; Nucleated RBC 0 %; Platelet Count 270 10^3/uL (130-400); RBC 4.55 10^6/uL (3.93-5.22); RDW 13.7 % (11.7-14.6); RDW-SD 41.5 fL; WBC 11.21 10^3/uL (4.4-10.8)
[2020-08-19] MEDS: Ondansetron 4 MG/2 ML VIAL IVP (19:48)
[2020-08-19] MEDS: Normal Saline 1,000 ML 500 ML IV (19:53)
[2020-08-19 20:01] LABS: Lipase 31 U/L (73-393); Magnesium 1.6 mg/dL (1.8-2.4)
[2020-08-19 20:10] LABS: ALT 17 U/L (14-59); AST 12 U/L (15-37); Alkaline Phosphatase 90 U/L (46-116); Anion Gap 8.9 mmol/L (3-11); BUN 9 mg/dL (7-18); Bilirubin, Total 0.5 mg/dL (0.2-1.0); CO2 28.1 mmol/L (21.0-32.0); CREATININE 0.7 mg/dL (0.55-1.02); Calcium 8.8 mg/dL (8.5-10.1); Chloride 100 mmol/L (98-107); Glucose 196 mg/dL (74-106); Potassium 3.9 mmol/L (3.5-5.1); Sodium 137 mmol/L (136-145); Total Protein 7.2 g/dL (6.4-8.2)
[2020-08-19 20:15] LABS: Troponin I < 0.05 ng/mL (<0.06)
[2020-08-19] MEDS: Omnipaque 350 MG/ML 100 ML BTL IJ (20:39)
[2020-08-19] MEDS: Normal Saline Flush 10 ML SYR IVP (20:40)
[2020-08-19] MEDS: Normal Saline - Diluent 50 ML VIAL IV (20:40)
[2020-08-19 20:50] LABS: Bilirubin Negative (Negative); Blood Moderate (Negative); Clarity Clear (Clear); Glucose Negative (Negative); Ketones Negative (Negative); Leukocyte Esterase Negative (Negative); Nitrite Negative (Negative); Specific Gravity 1.015 (1.005-1.025); Urobilinogen 0.2 EU/dL (Up TO 0.2)
[2020-08-19 21:04] LABS: Bacteria Negative HPF (Negative); C & S Indicated? No; Casts Negative LPF (Negative); Crystals Negative HPF (Negative); Epithelial Cells Negative HPF (Negative); Mucus Negative (Negative); Other Cells Rare Renal (Negative)
--- NOTE | 2020-08-19 21:19 | DI.VRAD_ITS ---
Addendum created by Robin Lamb MD on 08/19/2020 9:29:26 PM EDT: THIS REPORT CONTAINS FINDINGS THAT MAY BE CRITICAL TO PATIENT CARE. The findings were verbally communicated via telephone conference with Dr. Castillo at 9:28 PM EDT on 08/19/2020. The findings were acknowledged and understood. Initial report created on 08/19/2020 9:19:07 PM EDT: PROCEDURE INFORMATION: Exam: CT Abdomen And Pelvis With Contrast Exam date and time: 08/19/2020 7:35 PM Age: 55 years old Clinical indication: Other: Upper abdominal pain; Prior surgery; Surgery date: 6+ months; Surgery type: S/P cholecystectomy and appendectomy TECHNIQUE: Imaging protocol: Computed tomography of the abdomen and pelvis with contrast. Radiation optimization: All CT scans at this facility use at least one of these dose optimization techniques: automated exposure control; mA and/or kV adjustment per patient size (includes targeted exams where dose is matched to clinical indication); or iterative reconstruction. Contrast material: OMNIPAQUE 350; Contrast volume: 100 ml; Contrast route: INTRAVENOUS (IV); COMPARISON: CT ABDOMEN PELVIS W 10/30/2019 6:22 PM FINDINGS: Lungs: There is a 3 mm nodule within the right middle lobe (series 4, image 7). Otherwise the lung bases are unremarkable. Liver: Several hypodense lesions are seen through of the liver. Largest is located within segment 4 B and measures 1.7 cm (series 4, image 34). Gallbladder and bile ducts: Patient is status post cholecystectomy. Pancreas: Normal. No ductal dilation. Spleen: Normal. No splenomegaly. Adrenal glands: Normal. No mass. Kidneys and ureters: Normal. No hydronephrosis. Stomach and bowel: Unremarkable. No obstruction. No mucosal thickening. Appendix: No evidence of appendicitis. Intraperitoneal space: There is severe concentric thickening of a short segment of distal ascending colon just proximal to the hepatic flexure, with significant surrounding mesenteric fat stranding and fluid. Vasculature: Unremarkable. No abdominal aortic aneurysm. Lymph nodes: Multiple enlarged jayy hepatis, aortocaval and mesenteric lymphadenopathy. The largest aortocaval node measures 2.2 cm (series 4, image 36). There is a heterogeneous soft tissue nodule within the jayy hepatis measuring 1.8 cm (series 4, image 29). There is a large mesenteric mass measuring 5 x 2 cm (series 4, image 56). Urinary bladder: Unremarkable as visualized. Reproductive: Unremarkable as visualized. Bones/joints: Unremarkable. No acute fracture. Soft tissues: See Lymph nodes finding. IMPRESSION: 1. Short-segment concentric thickening of the ascending colon highly suspicious for malignant neoplasm. There is significant inflammatory changes surrounding this segment as well as surrounding fluid, raises suspicion for a possible perforation. 2. Jayy hepatis, retroperitoneal mesenteric lymphadenopathy suspicious for metastatic disease. 3. New hypodense hepatic lesions suspicious for metastatic liver disease. 4. Nonspecific 3 mm parenchymal lung nodule within the right middle lobe. Dictated and Authenticated by: Robin Lamb MD. Ordering:SANDRA Lamb MD
[2020-08-19] MEDS: ACETAMINOPHEN 1,000 MG/100 ML BTL 400 MG IVPB (21:51)
[2020-08-19] MEDS: MAGNESIUM SULFATE 1 GM/100 ML BAG IVPB (22:02)
[2020-08-19] MEDS: Pantoprazole 40 MG VIAL IVP (22:02)
[2020-08-19 22:04] VITALS: BP 176/86; PULSE 80; RESP 17; TEMP 36.2; O2SAT 97
[2020-08-19] MEDS: HYDROmorphone 2 MG/ML VIAL 1 MG IVP (22:13)
[2020-08-19] MEDS: metroNIDAZOLE 500 MG/100 ML BAG 100 MG IVPB (22:30)
[2020-08-19 22:49] LABS: Source Nasal/Nares
[2020-08-19 23:00] LABS: Troponin I < 0.05 ng/mL (<0.06)
[2020-08-19] MEDS: CEFEPIME 2 GM in Normal Saline 100 ML IVPB (23:04)
[2020-08-19 23:20] VITALS: BP 153/74; BP 155/74; PULSE 79; RESP 16; TEMP 36.8; O2SAT 98
[2020-08-19 23:39] LABS: COVID-19 PCR Negative (Negative)
[2020-08-20] MEDS: Normal Saline Flush 10 ML SYR IVP ×6 (00:28→20:06)
[2020-08-20] MEDS: HYDROmorphone 2 MG/ML VIAL 1 MG IVP ×4 (03:22→15:25)
[2020-08-20] MEDS: Normal Saline 1,000 ML 150 ML IV ×2 (03:38→20:21)
[2020-08-20] MEDS: Ondansetron 4 MG/2 ML VIAL IVP ×3 (03:38→20:45)
[2020-08-20] MEDS: ACETAMINOPHEN 1,000 MG/100 ML BTL 400 MG IVPB ×3 (06:36→22:59)
[2020-08-20 08:30] VITALS: BP 139/82; PULSE 75; RESP 18; TEMP 35.7; O2SAT 92
--- NOTE | 2020-08-20 08:33 | W.PM.HP.N ---
Date of service: 08/20/20 Time of Service: 08:33 Assessment and Plan Assessment and plan (1) Abdominal pain: Status: Acute Assessment and plan: Patient admitted to start IV antibiotics for concern for possible perforation. P[place] transfer [place] [facility] [place] showed colonic wall thickening suspicious for neoplasm and other findings to suggest metastatic disease. NPO Pain control P// Pending [facility] [place] once a bed is available. (2) Abdominal mass: Status: Acute History of Present Illness History of Present Illness Chief Complaint: Abdominal Pain, Abdominal Mass Narrative: 55 y/o female with a history of anxiety, COPD, HTN, gastroparesis, ALEXA, personality disorder, schizophrenia and Type 2 DM presented to the ER with compaints of epigastric pain x 3 days, that worsens after eating. CT scan performed in the ER which showed thickening of the ascending colon, retroperitoneal mesenteric lymphadenopathy and hepatic lesions all suspicious for metastatic disease. She was admitted to the surgical service to start IV antibiotics and pending open bed at [facility]. Beltrán from [facility] [place] contacted by the ER and provided recommendations for antibiotics given concern for possible perforation. This morning she reports her pain continues. Last BM was yesterday. She denies any nausea or vomiting at this time. [facility] Medical History Alopecia Anxiety (03/20/12) Bowel incontinence After stroke Carpal tunnel syndrome left Chest pain (08/23/12) neg. MPI; esophageal spasm per UGI Chronic constipation COPD (chronic obstructive pulmonary disease) Coronary artery disease Depressive disorder (03/20/12) Dizziness (03/20/12) Dysfunctional uterine bleeding Essential hypertension (11/15/12) SBP goal 120-140 Dr. Arreaga Gastroparesis (04/17/14) DR. FOLEY-04/17/14 Hirsutism (03/20/12) Hyperlipidemia Hypokalemia Insomnia, unspecified (03/20/12) Medial malleolar fracture (09/21/18) Migraine headache with aura Migraine headache without aura Narcolepsy without cataplexy Pt. denies this Non-alcoholic fatty liver disease (04/06/12) Onycholysis Onychomycosis Orthostasis ALEXA (obstructive sleep apnea) Papilloma of oral cavity Personality disorder MULTIPLE Postmenopausal Bleeding Posttraumatic stress disorder (03/20/12) multiple admissions to care bed. While waking up from anesthesia say name first before touching patient. Schizophrenia Smoker Syncope and collapse Type II diabetes mellitus with complication, uncontrolled (01/22/14) Goal AIC <7 Dr. Arreaga Surgical History History of appendectomy (~10/02/17) History of bilateral ligation of fallopian tubes History of section History of esophagogastroduodenoscopy (01/03/14) History of right and left heart catheterization 03/30/15 & 05/15/17 [place] [facility] Postoperative state Status post carpal tunnel release (~2016) Left Status post cholecystectomy Trigger finger, left middle finger S/P Release: 08/04/2020 Family History Mother Substance abuse Diabetes Heart disease Hypertension Father Substance abuse Diabetes Heart disease Hypertension Sister Cancer Heart disease Social History Smoking/Tobacco Use Status: Current every day Tobacco Type: cigarettes Years smoked: 40 Smoking risk assessment performed?: Yes Alcohol Intake: current Alcohol Intake frequency: holidays/special occasions only Alcohol type: wine Drug use: Daily Substance use type: marijuana Adopted: No Caregiver/Support person: No Foster care: No Household members: none Number of Children: 2 Do you need help understanding health information?: Never current occupation: Disabled Pets and animals: Yes (Therapy dog) Sexually active: No Do you think of yourself as: straight/heterosexual Current gender identity: female What is your relationship status?: Panel score (0-1 are the most socially isolated patients): 0 Seatbelt use: never Do you feel safe at home: Yes Do you feel safe in your relationship?: Yes Meds Allergies and Home Medications Allergies Allergy/AdvReac Type Severity Reaction Status Date / Time levofloxacin [From Levaquin] Allergy Verified 08/19/20 18:26 Penicillins Allergy Verified 08/19/20 18:26 pioglitazone HCl [From Actos] Allergy Verified 08/19/20 18:26 gabapentin AdvReac so sick Verified 08/19/20 18:26 vomitting/headache metformin AdvReac DIARRHEA Verified 08/19/20 18:26 Home Medications Medication Instructions Recorded Confirmed Type albuterol sulfate 90 mcg/actuation 2 puff INHALATION Q6H PRN PRN #18 03/15/19 08/19/20 Rx aerosol inhaler gm aspirin 81 mg tablet,delayed 81 mg PO DAILY #90 tab 03/15/19 08/19/20 Rx release triamcinolone acetonide 0.5 % 1 applic TP BID #454 gm 03/15/19 08/19/20 Rx topical cream nitroglycerin 0.4 mg sublingual 0.4 mg SUBLINGUAL PRN #60 tab 11/25/19 08/19/20 Rx tablet lancets 28 gauge #400 ea 01/16/20 08/19/20 Rx lisinopril 40 mg tablet 20 mg PO DAILY #90 tab 01/16/20 08/19/20 Rx pen needle, diabetic 32 gauge x #100 ea 01/16/20 08/19/20 Rx 32 halobetasol propionate 0.05 % 1 applic TOPICAL DAILY #15 g 01/28/20 08/19/20 Rx topical cream sennosides 8.6 mg tablet 34.4 mg PO QHS tab 04/01/20 08/19/20 History isosorbide mononitrate 30 mg 30 mg PO DAILY 04/07/20 08/19/20 History tablet,extended release 24 hr blood sugar diagnostic #200 ea 04/13/20 08/15/20 Rx blood-glucose meter #1 ea 04/13/20 08/19/20 Rx liraglutide 0.6 mg/0.1 mL (18 mg/3 1.2 mg SUBCUT DAILY #6 ml 04/16/20 08/19/20 Rx mL) subcutaneous pen injector pantoprazole 40 mg tablet,delayed 40 mg PO DAILY #90 tab-cap 04/21/20 08/19/20 Rx release quetiapine 400 mg tablet 800 mg PO QHS #180 tab 04/21/20 08/19/20 Rx sertraline 100 mg tablet 200 mg PO DAILY #90 tab 04/21/20 08/19/20 Rx amlodipine 5 mg tablet 5 mg PO DAILY #90 tab 04/24/20 08/19/20 Rx clopidogrel 75 mg tablet 75 mg PO DAILY #90 tab 04/24/20 08/19/20 Rx metoprolol succinate 100 mg 100 mg PO DAILY #90 tab 04/24/20 08/19/20 Rx tablet,extended release 24 hr prazosin 5 mg capsule 10 mg PO QHS #180 cap 05/05/20 08/19/20 Rx galcanezumab-gnlm 120 mg/mL 120 mg SUBCUT QMONTH #1 ml 05/19/20 08/19/20 Rx subcutaneous pen injector polyethylene glycol 3350 17 17 g PO DAILY #510 g 05/21/20 08/19/20 Rx gram/dose oral powder diaper,brief,adult,disposable #10 ea 05/22/20 08/19/20 History atorvastatin 80 mg tablet 80 mg PO DAILY #90 tab 05/28/20 08/19/20 Rx insulin glargine 100 unit/mL 45 unit SUBCUT BID #30 ml MDD 90 05/28/20 08/19/20 Rx subcutaneous solution units diaper,brief,adult,disposable #120 ea 06/01/20 08/19/20 Rx Knee ankle foot orthotic (KAFO) #1 ea 06/02/20 08/15/20 Rx insulin aspart U-100 [Novolog unit SUBCUT 08/04/20 08/15/20 History Flexpen U-100 Insulin] lorazepam 1 mg PO QHS PRN 08/04/20 08/19/20 History Exam Const General: cooperative and comfortable Resp Effort & Inspection: normal respiratory effort, no audible wheezes and no cough GI Palpation: soft, no guarding and tender in the epigastrum Auscultation: hypoactive bowel sounds Results Labs Result diagrams: 08/19/20 19:40 08/19/20 19:40 Labs: Laboratory Results - last 24 hr 08/19/20 08/19/20 08/19/20 19:40 19:40 19:40 WBC 11.21 H RBC 4.55 Hgb 12.4 Hct 37.9 MCV 83.3 MCH 27.3 MCHC 32.7 RDW 13.7 Plt Count 270 MPV 8.8 Immature Gran % 0.6 Neutrophils % 72.3 Lymphocytes % 14.2 Monocytes % 8.2 Eosinophils % 4.0 Basophils % 0.7 Nucleated RBC % 0 Absolute Neutrophils 8.10 H Absolute Lymphocytes 1.59 Absolute Monocytes 0.92 H Absolute Eosinophils 0.45 Absolute Basophils 0.08 Sodium 137 Potassium 3.9 Chloride 100 Carbon Dioxide 28.1 Anion Gap 8.9 BUN 9 Creatinine 0.7 Estimated GFR/1.73 m2 >= 60.00 Glucose 196 H Calcium 8.8 Magnesium 1.6 L Total Bilirubin 0.5 AST 12 L ALT 17 Alkaline Phosphatase 90 Troponin I < 0.05 Total Protein 7.2 Albumin 3.0 L Lipase 31 Urine Color Urine Clarity Urine pH Ur Specific Whipple Urine Protein Urine Ketones Urine Blood Urine Nitrite Urine Bilirubin Urine Urobilinogen Ur Leukocyte Esterase Urine RBC Urine WBC Ur Epithelial Cells Urine Crystals Urine Bacteria Urine Casts Urine Mucus Urine Other Ur Culture Indicated? Urine Glucose COVID-19 Source SARS-CoV-2 (PCR) 08/19/20 08/19/20 08/19/20 20:35 22:35 22:45 WBC RBC Hgb Hct MCV MCH MCHC RDW Plt Count MPV Immature Gran % Neutrophils % Lymphocytes % Monocytes % Eosinophils % Basophils % Nucleated RBC % Absolute Neutrophils Absolute Lymphocytes Absolute Monocytes Absolute Eosinophils Absolute Basophils Sodium Potassium Chloride Carbon Dioxide Anion Gap BUN Creatinine Estimated GFR/1.73 m2 Glucose Calcium Magnesium Total Bilirubin AST ALT Alkaline Phosphatase Troponin I < 0.05 Total Protein Albumin Lipase Urine Color Yellow Urine Clarity Clear Urine pH 6.0 Ur Specific Whipple 1.015 Urine Protein >=300 H Urine Ketones Negative Urine Blood Moderate H Urine Nitrite Negative Urine Bilirubin Negative Urine Urobilinogen 0.2 Ur Leukocyte Esterase Negative Urine RBC 3-5 H Urine WBC 3-5 Ur Epithelial Cells Negative Urine Crystals Negative Urine Bacteria Negative Urine Casts Negative Urine Mucus Negative Urine Other Rare Renal Ur Culture Indicated? No Urine Glucose Negative COVID-19 Source Nasal/Nares SARS-CoV-2 (PCR) Negative Last Vital Signs Temp 35.7 C L 08/20/20 08:30 Pulse 75 08/20/20 08:30 Resp 18 08/20/20 08:30 BP 139/82 08/20/20 08:30 Pulse Ox 92 08/20/20 08:30
--- NOTE | 2020-08-20 10:24 | PDOC.CMIN ---
- If Service Date Differs Date of service: 08/20/20 Time of Service: 10:24 Care Management Initial Assess REASON FOR HOSPITALIZATION:: Abdominal Mass PAST MEDICAL HISTORY/PAST SURGICAL HISTORY:: Medical History. Alopecia. Anxiety (03/20/12). Bowel incontinence. After stroke. Carpal tunnel syndrome. left. Chest pain (08/23/12). neg. MPI; esophageal spasm per UGI. Chronic constipation. COPD (chronic obstructive pulmonary disease). Coronary artery disease. Depressive disorder (03/20/12). Dizziness (03/20/12). Dysfunctional uterine bleeding. Essential hypertension (11/15/12). SBP goal 120-140 Dr. Arreaga. Gastroparesis (04/17/14). DR. FOLEY-04/17/14. Hirsutism (03/20/12). Hyperlipidemia. Hypokalemia. Insomnia, unspecified (03/20/12). Medial malleolar fracture (09/21/18). Migraine headache with aura. Migraine headache without aura. Narcolepsy without cataplexy. Pt. denies this. Non-alcoholic fatty liver disease (04/06/12). Onycholysis. Onychomycosis. Orthostasis. ALEXA (obstructive sleep apnea). Papilloma of oral cavity. Personality disorder. MULTIPLE. Postmenopausal Bleeding. Posttraumatic stress disorder (03/20/12). multiple admissions to care bed. While waking up from anesthesia say name first before touching patient. Schizophrenia. Smoker. Syncope and collapse. Type II diabetes mellitus with complication, uncontrolled (01/22/14). Goal AIC <7 Dr. Arreaga. Surgical History. History of appendectomy (~10/02/17). History of bilateral ligation of fallopian tubes. History of section. History of esophagogastroduodenoscopy (01/03/14). History of right and left heart catheterization. 03/30/15 & 05/15/17 - [facility]. Postoperative state. Status post carpal tunnel release (~2016). Left. Status post cholecystectomy. Trigger finger, left middle finger. S/P Release: 08/04/2020 PREVIOUS FUNCTIONAL STATUS/SOCIAL/FAMILY SUPPORTS:: Lis lives in [place], [facility]. She has a son who lives in [place], and one who lives in [place]. She has friends that are very supportive. She is independent with her ADL's at baseline. CURRENT FUNCTIONAL STATUS:: Lis was lying in bed when CM met with her. She was pleasant and engaged in conversation, and tearful at times. She reported that she is being transferred to [facility], and is agreeable to having her treatment there. She stated that she is in a lot of pain, and she has been communicating that well with her RN. CM discussed her transfer with MD, who reported that [facility] does not have a bed today, therefore MD will reach out to [facility] as well. CM will continue to follow. ADVANCE DIRECTIVES:: None on file. CM will offer forms. Has patient been provided with info about the portal/API?: Yes Did the patient sign up for the portal?: Yes (active) CODE STATUS:: Full Code INSURANCE COVERAGE / FINANCIAL ISSUES:: MCR/ JOSIAH/ MVP CURRENT HOME/COMMUNITY SERVICES/EQUIPMENT:: Lis has services through [facility]. PRIMARY CARE PHYSICIAN:: Paula Harris POTENTIAL DISCHARGE NEEDS:: Lis has been accepted for transfer to [facility] pending bed availability. PATIENT/FAMILY EDUCATION NEEDS:: Review discharge instructions, expectations for transfer, discuss self care needs and goals of care. ANTICIPATED BARRIERS TO DISCHARGE:: None identified. TRANSPORTATION:: Tertiary transfer via ambulance, coordinated by RN ward supervisor. PLAN:: Per report, Lis will be transferred to [facility] vs [facility] once a bed becomes available. She will transport via ambulance, coordinated by RN Rewinder. She will follow up with her PCP and discharge plan of care. CM will continue to follow.
[2020-08-20 11:58] VITALS: BP 156/88; PULSE 72; RESP 17; TEMP 35.9; O2SAT 95
[2020-08-20] MEDS: CEFEPIME 2 GM in Normal Saline 100 ML IVPB (13:12)
[2020-08-20] MEDS: metroNIDAZOLE 500 MG/100 ML BAG 100 MG IVPB ×2 (14:45→23:00)
--- NOTE | 2020-08-20 15:11 | PHACLINREV_ITS ---
Pharmacy Admission Review - Admission Clinical Review (Last Reviewed 08/15/20 @ 17:07 by Pee Darnell MD) Abdominal mass (Acute) Abdominal pain (Acute) levofloxacin [From Levaquin] Allergy (Verified 08/19/20 18:26) Penicillins Allergy (Verified 08/19/20 18:26) pioglitazone HCl [From Actos] Allergy (Verified 08/19/20 18:26) gabapentin Adverse Reaction (Verified 08/19/20 18:26) so sick vomitting/headache metformin Adverse Reaction (Verified 08/19/20 18:26) DIARRHEA Resuscitation Status Full Code Height 5 ft 4 in Weight 101.151 kg - Comments Comments/Follow Ups: Hydromorphone/APAP both IV for pain, NPO, no home meds entered at this time, awaiting transfer to [facility] when bed available. Antibiotics ordered empirically per ED notes and discussion w/[facility] - Renal Dosing Renal Dosing: BUN 9 mg/dL (7-18) 08/19/20 19:40 Creatinine 0.7 mg/dL (0.55-1.02) 08/19/20 19:40 Medications needing adjustments: Reviewed (CrCl~67ml/min) - Anticoagulation Anticoagulation: Hgb 12.4 g/dL (11.2-15.7) 08/19/20 19:40 Hct 37.9 % (36.0-46.0) 08/19/20 19:40 Plt Count 270 10^3/uL (130-400) 08/19/20 19:40 Creatinine 0.7 mg/dL (0.55-1.02) 08/19/20 19:40 DVT Prophylaxis: N/A (?surgery @ [facility]) - Opiate Usage Evaluate Pain Scale/Pains Meds: Reviewed (Pain 10/10; Hydromorphone IVP) Scheduled Bowel Reg ordered if on Opiates?: No (NPO) - Relevant Labs Sodium 137 mmol/L (136-145) 08/19/20 19:40 Potassium 3.9 mmol/L (3.5-5.1) 08/19/20 19:40 Chloride 100 mmol/L (98-107) 08/19/20 19:40 Magnesium 1.6 mg/dL (1.8-2.4) L 08/19/20 19:40 Electrolytes, C-Reactive P, ESR: Reviewed (Mag 1gram in ED late last night) - DM Control DM Control: Glucose 196 mg/dL (74-106) H 08/19/20 19:40 Insulin Dosing: N/A - Heart Failure/CT Heart Failure/CT: Troponin I < 0.05 ng/mL (<0.06) 08/19/20 22:35 EF%, COCO's, B-Blockers, Diuretics: N/A - BP Control BP Control: Blood Pressure 156/88 Blood Pressure 139/82 If elevated: N/A - Qtc Review If Elevated: N/A - IV to PO Switch IV Medications: Reviewed (patient is NPO) - Home Meds Home Med List reviewed: Reviewed Relevent Home Meds Not ordered & why?: patient NPO, many home meds for diabetes, BP control, Psych/depression meds; surgeon has not been by today to evaluate or enter orders, was seen early in the morning by NASIR Antibiotic Activity - Pharmacy Antibiotic Review Pharmacy Antibiotic Activity: Abx regimen adjustment (antibiotic orders were 1x only in ED, alerted MD that followup orders had not been resummed upon admission) - Antibiotic Information Antibiotic Review Info: Empiric Cefepime/Flagyl for abdominal mass prior to transfer to [facility]
--- NOTE | 2020-08-20 15:11 | CHAPLAIN ---
Lis told me she has a tumor and that is why she is going to [facility] and she expects to have an operation. She seemed both tired and sad. She did not sleep well last night, she said. Lis talked about her dog, Briseida, and her cat,. She misses them a great deal and is concerned about who will care for them if she is in [facility] for any length of time. A friend is feeding them now. I gave Lis and amna kan to take with her. She is waiting for a bed to open up at [facility].
--- NOTE | 2020-08-20 15:13 | PGE_ITS ---
Date of Service Date of service: 08/20/20 Time of Service: 13:40 Assessment and Plan Assessment and plan (1) Abdominal pain: Status: Acute Assessment and plan: 55-year-old female with an extensive medical history, including stroke in February 2020, and diabetes (A1c 9.9). The ED consulted with [facility] yesterday evening and they agreed she would be an appropriate transfer but they have no capacity. She has been hemodynamically stable and afebrile today. Reviewed CT scan with radiology. Dr. Harkins did not see any definite signs of perforation, or droplets of air. Also, the involved area in the ascending colon does not appear to be obstructing. She has extensive mesenteric lympadenopathy, and liver lesions concerning for metastases. Reviewed the patient's history with anesthesia, and they were very concerned with her recent stroke history. They recommended transfer to a tertiary center. I called the [facility] transfer center twice today and they still have no beds. The same is true at [facility]. Continue IV Cefepime and Flagyl NPO Pain control Will continue efforts to transfer patient tomorrow (2) Abdominal mass: Status: Acute Subjective Subjective Patient reports: still having pain, voiding w/o difficulty, no flatus, no bowel movement and afebrile; denies nausea and shortness of breath Exam Const General: cooperative, anxious and ill appearing chronically Orientation: alert, awake and oriented x3 Resp Effort & Inspection: normal respiratory effort and able to speak in complete sentences Auscultation: clear to auscultation bilaterally GI Inspection: obesity Palpation: soft, guarding (voluntary guarding) in the RUQ, not rigid and tender in the RLQ, in the RUQ and Rovsing's sign positive Auscultation: absent bowel sounds Neuro General: patient alert, patient awake and patient oriented x3 Psych Speech and Movement: speech and movement normal Mood: congruent mood and anxious mood Attitude: cooperative Thought Process: normal Thought Content: normal Objective Last Vital Signs Temp 98.1 F 08/20/20 16:10 Pulse 72 08/20/20 16:10 Resp 17 08/20/20 16:10 BP 151/75 H 08/20/20 16:10 Pulse Ox 95 08/20/20 16:10 Laboratory Results - last 24 hr 08/19/20 08/19/20 08/19/20 19:40 19:40 19:40 WBC 11.21 H RBC 4.55 Hgb 12.4 Hct 37.9 MCV 83.3 MCH 27.3 MCHC 32.7 RDW 13.7 Plt Count 270 MPV 8.8 Immature Gran % 0.6 Neutrophils % 72.3 Lymphocytes % 14.2 Monocytes % 8.2 Eosinophils % 4.0 Basophils % 0.7 Nucleated RBC % 0 Absolute Neutrophils 8.10 H Absolute Lymphocytes 1.59 Absolute Monocytes 0.92 H Absolute Eosinophils 0.45 Absolute Basophils 0.08 Sodium 137 Potassium 3.9 Chloride 100 Carbon Dioxide 28.1 Anion Gap 8.9 BUN 9 Creatinine 0.7 Estimated GFR/1.73 m2 >= 60.00 Glucose 196 H Calcium 8.8 Magnesium 1.6 L Total Bilirubin 0.5 AST 12 L ALT 17 Alkaline Phosphatase 90 Troponin I < 0.05 Total Protein 7.2 Albumin 3.0 L Lipase 31 Urine Color Urine Clarity Urine pH Ur Specific [place] Urine Protein Urine Ketones Urine Blood Urine Nitrite Urine Bilirubin Urine Urobilinogen Ur Leukocyte Esterase Urine RBC Urine WBC Ur Epithelial Cells Urine Crystals Urine Bacteria Urine Casts Urine Mucus Urine Other Ur Culture Indicated? Urine Glucose COVID-19 Source SARS-CoV-2 (PCR) 08/19/20 08/19/20 08/19/20 20:35 22:35 22:45 WBC RBC Hgb Hct MCV MCH MCHC RDW Plt Count MPV Immature Gran % Neutrophils % Lymphocytes % Monocytes % Eosinophils % Basophils % Nucleated RBC % Absolute Neutrophils Absolute Lymphocytes Absolute Monocytes Absolute Eosinophils Absolute Basophils Sodium Potassium Chloride Carbon Dioxide Anion Gap BUN Creatinine Estimated GFR/1.73 m2 Glucose Calcium Magnesium Total Bilirubin AST ALT Alkaline Phosphatase Troponin I < 0.05 Total Protein Albumin Lipase Urine Color Yellow Urine Clarity Clear Urine pH 6.0 Ur Specific [place] 1.015 Urine Protein >=300 H Urine Ketones Negative Urine Blood Moderate H Urine Nitrite Negative Urine Bilirubin Negative Urine Urobilinogen 0.2 Ur Leukocyte Esterase Negative Urine RBC 3-5 H Urine WBC 3-5 Ur Epithelial Cells Negative Urine Crystals Negative Urine Bacteria Negative Urine Casts Negative Urine Mucus Negative Urine Other Rare Renal Ur Culture Indicated? No Urine Glucose Negative COVID-19 Source Nasal/Nares SARS-CoV-2 (PCR) Negative
[2020-08-20 16:10] VITALS: BP 151/75; PULSE 72; RESP 17; TEMP 36.7; O2SAT 95
[2020-08-20] MEDS: Ketorolac 15 MG/ML VIAL IVP ×2 (17:19→22:58)
[2020-08-20] MEDS: MAGNESIUM SULFATE 2 GM/50 ML BAG IVPB (17:19)
--- NOTE | 2020-08-20 19:30 | RT.EKG_ITS ---
APPROVED REPORT Exam: Resting ECG Reason for Exam: possible pre-op Patient Location: I HR:74 bpm ECG Measurements Heart Rate 74 AXIS FL 197 P 41 QRSd 113 QRS -5 QT 466 T 35 QTc 520 Conclusion Sinus rhythm...normal P axis, V-rate 60- 99 Incomplete left bundle branch block...QRSd>110mS, terminal axis(-90,-1) Prolonged QT interval...QTc >510mS
[2020-08-20] MEDS: Pantoprazole 40 MG VIAL IVP (20:02)
[2020-08-20] MEDS: HYDROmorphone 2 MG/ML VIAL 1.5 MG IVP (20:03)
[2020-08-20 20:07] VITALS: BP 135/62; PULSE 72; RESP 18; TEMP 36.1; O2SAT 95
[2020-08-20 23:52] VITALS: BP 144/76; PULSE 75; RESP 17; TEMP 36.2; O2SAT 91
[2020-08-21] MEDS: HYDROmorphone 2 MG/ML VIAL 1.5 MG IVP ×3 (00:12→11:52)
[2020-08-21] MEDS: Ondansetron 4 MG/2 ML VIAL IVP ×2 (00:23→08:45)
[2020-08-21] MEDS: CEFEPIME 2 GM in Normal Saline 100 ML IVPB ×2 (00:31→11:52)
[2020-08-21 03:19] VITALS: BP 160/77; PULSE 74; RESP 18; TEMP 36.1; O2SAT 91
[2020-08-21] MEDS: Normal Saline 1,000 ML 150 ML IV (04:54)
[2020-08-21] MEDS: Ketorolac 15 MG/ML VIAL IVP ×2 (04:54→10:38)
[2020-08-21] MEDS: ACETAMINOPHEN 1,000 MG/100 ML BTL 400 MG IVPB ×3 (05:49→22:26)
[2020-08-21] MEDS: metroNIDAZOLE 500 MG/100 ML BAG 100 MG IVPB ×3 (05:50→22:42)
[2020-08-21] MEDS: Normal Saline Flush 10 ML SYR IVP ×6 (05:50→19:58)
[2020-08-21 06:44] LABS: Lactate 0.5 mmol/L (0.6-1.4)
[2020-08-21 06:47] LABS: Abs Immature Grans 0.07 10^3/uL (0.0-0.06); Absolute Basophil Count 0.04 10^3/uL (0.0-0.2); Absolute Eosinophil Count 0.31 10^3/uL (0.0-0.7); Absolute Lymphocyte Count 0.75 10^3/uL (1.2-3.4); Absolute Monocyte Count 0.65 10^3/uL (0.1-0.8); Absolute Neutrophil Count 7.22 10^3/uL (1.2-6.7); Basophils % 0.4; Eosinophils % 3.4; HCT 36.5 % (36.0-46.0); HGB 11.6 g/dL (11.2-15.7); Immature Grans % 0.8; Lymphocytes % 8.3; MCH 26.9 pg (27.0-33.0); MCHC 31.8 % (32.0-36.0); MCV 84.7 fL (80-95); Monocytes % 7.2; Neutrophils % 79.9; Nucleated RBC 0 %; Platelet Count 232 10^3/uL (130-400); RBC 4.31 10^6/uL (3.93-5.22); RDW 13.7 % (11.7-14.6); RDW-SD 42.6 fL; WBC 9.04 10^3/uL (4.4-10.8)
[2020-08-21 07:04] LABS: ALT 35 U/L (14-59); AST 24 U/L (15-37); Albumin 2.4 g/dL (3.4-5.0); Alkaline Phosphatase 141 U/L (46-116); Anion Gap 9.1 mmol/L (3-11); BUN 11 mg/dL (7-18); Bilirubin, Total 0.4 mg/dL (0.2-1.0); CO2 24.9 mmol/L (21.0-32.0); CREATININE 0.6 mg/dL (0.55-1.02); Calcium 7.6 mg/dL (8.5-10.1); Chloride 109 mmol/L (98-107); Glucose 176 mg/dL (74-106); Magnesium 2.2 mg/dL (1.8-2.4); Sodium 143 mmol/L (136-145); Total Protein 5.8 g/dL (6.4-8.2)
[2020-08-21 07:20] VITALS: BP 184/78; PULSE 70; RESP 19; TEMP 35.9; O2SAT 95
--- NOTE | 2020-08-21 08:05 | PGE_ITS ---
Documented by User: NASIR Rojas 08/21/20 08:11 Date of Service Date of service: 08/21/20 Time of Service: 08:07 Assessment and Plan Assessment and plan (1) Abdominal pain: Status: Acute Assessment and plan: Continue IV antibiotics Pending transfer to tertiary care CT scan showed colonic wall thickening suspicious for neoplasm and other f indings to suggest metastatic disease. NPO Pain control (2) Abdominal mass: Status: Acute Subjective Subjective Interval history since last seen: Patient reports that she continues to have epigastric pain and this morning she woke up with 10/10PL in her lower abdomen. She recently recieved Dilaudid and this has improved. Per nsg her last pain medication was received at midnight prior to this mornings dose. Exam Const General: cooperative and in distress mild Orientation: alert and awake Resp Effort & Inspection: normal respiratory effort, no audible wheezes and no cough GI Palpation: soft, guarding in the LLQ and in the RLQ and tender (sharp pain ) in the epigastrum, in the LLQ and in the RLQ Objective Last Vital Signs Temp 35.9 C L 08/21/20 07:20 Pulse 70 08/21/20 07:20 Resp 19 08/21/20 07:20 BP 184/78 H 08/21/20 07:20 Pulse Ox 95 08/21/20 07:20 Laboratory Results - last 24 hr 08/21/20 08/21/20 08/21/20 06:36 06:36 06:36 WBC 9.04 RBC 4.31 Hgb 11.6 Hct 36.5 MCV 84.7 MCH 26.9 L MCHC 31.8 L RDW 13.7 Plt Count 232 MPV 9.0 Immature Gran % 0.8 Neutrophils % 79.9 Lymphocytes % 8.3 Monocytes % 7.2 Eosinophils % 3.4 Basophils % 0.4 Nucleated RBC % 0 Absolute Neutrophils 7.22 H Absolute Lymphocytes 0.75 L Absolute Monocytes 0.65 Absolute Eosinophils 0.31 Absolute Basophils 0.04 VBG Lactate 0.5 L Sodium 143 Potassium 4.0 Chloride 109 H Carbon Dioxide 24.9 Anion Gap 9.1 BUN 11 Creatinine 0.6 Estimated GFR/1.73 m2 >= 60.00 Glucose 176 H Calcium 7.6 L Magnesium 2.2 Total Bilirubin 0.4 AST 24 ALT 35 Alkaline Phosphatase 141 H Total Protein 5.8 L Albumin 2.4 L Documented by User: Rolando Delaney MD 08/21/20 16:35
[2020-08-21 11:36] VITALS: BP 146/78; PULSE 73; RESP 19; TEMP 36.2; O2SAT 95
--- NOTE | 2020-08-21 13:20 | DI.RAD_ITS ---
Exam(s) XR ABD FLAT UPRIGHT PA CHEST CLINICAL HISTORY: eval for obstr, perf. COMPARISON: CR,XR XR CHEST 2V PA LATERAL from 11/12/2019 FINDINGS: LUNGS: Minimal linear atelectasis or scarring at the left lung base, otherwise clear. No pleural abn ormality seen. HEART: Normal. MEDIASTINUM: Normal. BOWEL GAS PATTERN: Nondistended bowel loops. No air-fluid levels seen. ABNORMAL COLLECTIONS OF AIR: No abnormal collection of air. No pneumoperitoneum. CALCIFICATIONS: None. No radiopaque renal, ureteral, or bladder calcification. IMPRESSION: 1. Nonobstructive bowel gas pattern. No evidence of free air. 2. No acute pulmonary findings.
--- NOTE | 2020-08-21 14:25 | ANES.CON_ITS ---
General Date of Service Date of Service: 08/21/20 Reason for Consult Requesting Provider: Rolando Delaney How Consult Conducted:: Chart Review Reason for Consult:: Potential Surgical Add-on: Per chart review of [facility] records, see findings below: 05/16/19: CARDIAC CATHERIZATION; critical lesion (90% to RCA, TRACEY to RCA placed, successful) 06/02/2017: CARDIAC CATHERIZATION *STUDY CONCLUSIONS* Impressions: Cannot exclude infective endocarditis based on this study. Mitral and tricuspid valve with thickening. No obvious vegetations. Correlate clinically. Summary: 1. Left ventricle: The cavity size was normal. Wall thickness was normal. Systolic function was normal. The estimated ejection fraction was 55-60%. Wall motion was normal; there were no regional wall motion abnormalities. 2. Right ventricle: The cavity size was normal. Systolic function was normal. 3. Mitral valve: Mildly calcified annulus. Mildly thickened, mildly calcified leaflets anterior greater than posterior. Focal calcification of subchordal apparatus. There was mild regurgitation. 4. Tricuspid valve: Mildly thickened, mildly calcified leaflets. There was moderate regurgitation. 03/14/2020: Ischemic Stroke, consult to [facility] 07/22/2011: Neurology vist, see not below per Dr. Arreaga Assessment & Plan (1) Orthostatic hypotension: (2) Syncope and collapse: (3) Autonomic failure: (4) Migraine headache without aura: (5) Migraine headache with aura: (6) Chronic headache: (7) Left pontine cerebrovascular accident: (8) Right hemiparesis: (9) Falls frequently: Ms. Cortes is a 55 year-old, right handed woman who returns in follow: #1. Left pontine ischemic stroke with right hemiparesis and dysarthria, se condary to small vessel disease. She will continue ASA+clopidogrel as per cardiology along with statin for secondary stroke prevention. Goal LDL <70. Goal SBP 120-140. Goal A1c <7. Continue PT/OT. Discussed continued improvement through 1 year and beyond if needed. In regards to her right leg, it sounds like a reflex is being triggered. Discussed limiting baclofen to HS only so as not to weaken leg, inhibit recovery. We can be more aggressive after she completes the recovery period. #2. Chronic migraine headaches with and without aura complicated by polypharmacy, mood/personality disorder, probable sleep apnea, insomnia, multiple concussions, and cigarette smoking. She has done well with ONB for prevention, but previously had a hard time getting to the office consistently. Now on Emgality for headache prevention with excellent improvement. She will continue this once monthly. #3. Autonomic failure with gastroporesis, orthostatic hypotension/syncope, and urinary retention, secondary to diabetic neuropathy, and complicated by her polypharmacy. This has improved solely due to her reduced mobility. Will continue to monitor. Consult Recommendation after Review:: Given patient's complex medical history, including STEMI with RCA stent placement and ischemic stroke (03/14/20) within a six-month window the patient is at elevated risk for anesthetic complications. Patient would be better served to be transferred to a higher level of care/tertiary center. Height: 5 ft 4 in Weight: 101.151 kg Body Mass Index (BMI): 38.2 Meds Allergies and Home Medications Allergies Allergy/AdvReac Type Severity Reaction Status Date / Time levofloxacin [From Levaquin] Allergy Verified 08/19/20 18:26 Penicillins Allergy Verified 08/19/20 18:26 pioglitazone HCl [From Actos] Allergy Verified 08/19/20 18:26 gabapentin AdvReac so sick Verified 08/19/20 18:26 vomitting/headache metformin AdvReac DIARRHEA Verified 08/19/20 18:26 Home Medication Medication Instructions Recorded albuterol sulfate 90 mcg/actuation 2 puff INHALATION Q6H PRN PRN #18 03/15/19 aerosol inhaler gm aspirin 81 mg tablet,delayed 81 mg PO DAILY #90 tab 03/15/19 release triamcinolone acetonide 0.5 % 1 applic TP BID #454 gm 03/15/19 topical cream nitroglycerin 0.4 mg sublingual 0.4 mg SUBLINGUAL PRN #60 tab 11/25/19 tablet lancets 28 gauge #400 ea 01/16/20 lisinopril 40 mg tablet 20 mg PO DAILY #90 tab 01/16/20 pen needle, diabetic 32 gauge x #100 ea 01/16/20 halobetasol propionate 0.05 % 1 applic TOPICAL DAILY #15 g 01/28/20 topical cream sennosides 8.6 mg tablet 34.4 mg PO QHS tab 04/01/20 isosorbide mononitrate 30 mg 30 mg PO DAILY 04/07/20 tablet,extended release 24 hr blood sugar diagnostic #200 ea 04/13/20 blood-glucose meter #1 ea 04/13/20 liraglutide 0.6 mg/0.1 mL (18 mg/3 1.2 mg SUBCUT DAILY #6 ml 04/16/20 mL) subcutaneous pen injector pantoprazole 40 mg tablet,delayed 40 mg PO DAILY #90 tab-cap 04/21/20 release quetiapine 400 mg tablet 800 mg PO QHS #180 tab 04/21/20 sertraline 100 mg tablet 200 mg PO DAILY #90 tab 04/21/20 amlodipine 5 mg tablet 5 mg PO DAILY #90 tab 04/24/20 clopidogrel 75 mg tablet 75 mg PO DAILY #90 tab 04/24/20 metoprolol succinate 100 mg 100 mg PO DAILY #90 tab 04/24/20 tablet,extended release 24 hr prazosin 5 mg capsule 10 mg PO QHS #180 cap 05/05/20 galcanezumab-gnlm 120 mg/mL 120 mg SUBCUT QMONTH #1 ml 05/19/20 subcutaneous pen injector polyethylene glycol 3350 17 17 g PO DAILY #510 g 05/21/20 gram/dose oral powder diaper,brief,adult,disposable #10 ea 05/22/20 atorvastatin 80 mg tablet 80 mg PO DAILY #90 tab 05/28/20 insulin glargine 100 unit/mL 45 unit SUBCUT BID #30 ml MDD 90 05/28/20 subcutaneous solution units diaper,brief,adult,disposable #120 ea 06/01/20 Knee ankle foot orthotic (KAFO) #1 ea 06/02/20 insulin aspart U-100 [Novolog unit SUBCUT 08/04/20 Flexpen U-100 Insulin] lorazepam 1 mg PO QHS PRN 08/04/20 Current Visit Medications: Current Medications Generic Name Dose Route Start Last Admin Trade Name Freq PRN Reason Stop Dose Admin Albuterol Sulfate 2 puff 08/20/20 19:37 Albuterol Hfa 8 Gm 60 Puff Inh IH Q6H PRN PRN shortness of breath or wheezing Device 1 each 08/20/20 20:00 Inhaler, Assist Device MC DIRECTED BAILEY Dextrose 0 gm 08/20/20 16:41 Glucose 40% Oral Solution 15 Gm/37.5 Gm Tube PO DIRECTED PRN Dextrose/Water 0 gm 08/20/20 16:41 Dextrose 50%-Water 25 Gm/50 Ml Syr IVP DIRECTED PRN Hydromorphone HCl 1.5 mg 08/20/20 15:35 08/21/20 11:52 Hydromorphone 2 Mg/Ml Vial IVP 1.5 mg Q2H PRN PRN Administration Sodium Chloride 500 mls @ 0 mls/hr 08/19/20 22:19 Saline 500ml Bag IV PRN PRN As Directed Sodium Chloride 1,000 mls @ 150 mls/hr 08/20/20 04:00 08/21/20 04:54 Saline 1000ml Bag IV 150 mls/hr INFUSION BAILEY Administration Cefepime HCl 2 gm/ Sodium 100 mls @ 200 mls/hr 08/20/20 12:00 08/21/20 11:52 Chloride IVPB 200 mls/hr Q12H BAILEY Administration Metronidazole 500 mg in 100 mls @ 100 mls/hr 08/20/20 14:00 08/21/20 13:47 Flagyl IVPB 100 mls/hr Q8H BAILEY Administration Acetaminophen 1,000 mg in 100 mls @ 400 mls/hr 08/20/20 22:00 08/21/20 13:47 Ofirmev IVPB 400 mls/hr Q8H BAILEY Administration IV Miscellaneous Supplies 1 each 08/19/20 22:30 Iv Access IV DIRECTED BAILEY Insulin Aspart 0 units 08/21/20 02:00 08/21/20 07:30 Insulin Aspart 300 Units/3 Ml Pen SC Not Given Q6H [facility] Protocol Ketorolac Tromethamine 15 mg 08/20/20 16:00 08/21/20 10:38 Ketorolac 15 Mg/Ml Vial IVP 08/25/20 15:59 15 mg Q6H BAILEY Administration Nitroglycerin 0.4 mg 08/20/20 20:00 Nitroglycerin 0.4 Mg Tab SL Q5 MIN PRN X3 PRN Nystatin 0 gm 08/21/20 14:00 Nystatin Powder 60 Gm Jar TP TID BAILEY Ondansetron HCl 4 mg 08/20/20 02:50 08/21/20 08:45 Ondansetron 4 Mg/2 Ml Vial IVP 4 mg Q4H PRN PRN Administration Pantoprazole Sodium 40 mg 08/20/20 20:00 08/20/20 20:02 Pantoprazole 40 Mg Vial IVP 40 mg Q24H BAILEY Administration Sodium Chloride 0 ml 08/19/20 22:19 08/21/20 11:54 Normal Saline Flush 10 Ml Syr IVP 20 ml PRN PRN Administration PFSH Active Problems Active Problems: Problem Status Onset Code Abdominal mass R19.00 Abdominal pain R10.9 Trigger finger, left middle finger M65.332 Calcific tendonitis of right shoulder M75.31 Foreign body of toe, right, infected S90.454A, L08.9 Bowel incontinence R15.9 Falls frequently R29.6 Right hemiparesis G81.91 Left pontine cerebrovascular accident I63.50 NPDR (nonproliferative diabetic retinopathy) E11.3299 Postoperative state Z98.890 Migraine G43.909 Obesity E66.9 Bruxism, sleep-related G47.63 Myalgia M79.10 Lumbar back pain M54.5 Oral mucosal lesion K13.70 Tobacco abuse Z72.0 Posterior tibial tendon dysfunction M76.829 Trigger finger, left ring finger M65.342 Orthostatic hypotension I95.1 Syncope due to autonomic failure R55 Autonomic failure G90.9 Chronic headache R51.9, G89.29 Postmenopausal Bleeding N95.0 Coronary artery disease I25.10 Orthostasis I95.1 Migraine headache without aura G43.009 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 Migraine headache with aura G43.109 Non-alcoholic fatty liver disease 04/06/12 K76.0 Hirsutism 03/20/12 L68.0 Chest pain 08/23/12 R07.9 Anxiety 03/20/12 F41.9 Alopecia L65.9 Medial malleolar fracture 09/21/18 S82.53XA Carpal tunnel syndrome G56.00 Schizophrenia F20.9 Syncope and collapse R55 Onycholysis L60.1 Chronic constipation K59.09 Gastroparesis 04/17/14 K31.84 COPD (chronic obstructive pulmonary disease) J44.9 Essential hypertension 11/15/12 I10 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 MPI; esophageal spasm per UGI Chronic constipation COPD (chronic obstructive pulmonary disease) Coronary artery disease Depressive disorder (03/20/12) Dizziness (03/20/12) Dysfunctional uterine bleeding Essential hypertension (11/15/12) SBP goal 120-140 Dr. Arreaga Gastroparesis (04/17/14) DR. FOLEY-04/17/14 Hirsutism (03/20/12) Hyperlipidemia Hypokalemia Insomnia, unspecified (03/20/12) Medial malleolar fracture (09/21/18) Migraine headache with aura Migraine headache without aura Narcolepsy without cataplexy Pt. denies this Non-alcoholic fatty liver disease (04/06/12) Onycholysis Onychomycosis Orthostasis ALEXA (obstructive sleep apnea) Papilloma of oral cavity Personality disorder MULTIPLE Postmenopausal Bleeding Posttraumatic stress disorder (03/20/12) multiple admissions to care bed. While waking up from anesthesia say name first before touching patient. Schizophrenia Smoker Syncope and collapse Type II diabetes mellitus with complication, uncontrolled (01/22/14) Goal AIC <7 Dr. Arreaga Surgical History Surgical History History of appendectomy (~10/02/17) History of bilateral ligation of fallopian tubes History of section History of esophagogastroduodenoscopy (01/03/14) History of right and left heart catheterization 03/30/15 & 05/15/17 - [facility] Postoperative state Status post carpal tunnel release (~2016) Left Status post cholecystectomy Trigger finger, left middle finger S/P Release: 08/04/2020 Tobacco Smoking/Tobacco Use Status: Current every day Tobacco Type: cigarettes Years smoked: 40 Alcohol Alcohol Intake: current Alcohol intake frequency: holidays/special occasions only Alcohol type: wine Substance Use Substance use: Daily Substance use type: marijuana Vital Signs & Lab Results Vital Signs Most Recent Vital Signs: Most Recent Vital Signs Temp Pulse Resp BP Pulse Ox 36.2 C L 73 19 146/78 H 95 08/21/20 11:36 08/21/20 11:36 08/21/20 11:36 08/21/20 11:36 08/21/20 11:36 Point of Care Results Nursing Point of Care Results: Finger Stick Blood Glucose 179 H (70 - 120) 08/21/20 13:37 08/21/20 Lab Results Result Diagrams: 08/21/20 06:36 08/21/20 06:36 Blood Type / Crossmatch: No Data to Display Complete Blood Count: White Blood Count 9.04 10^3/uL (4.4-10.8) 08/21/20 06:36 08/21/20 Red Blood Count 4.31 10^6/uL (3.93-5.22) 08/21/20 06:36 08/21/20 Hemoglobin 11.6 g/dL (11.2-15.7) 08/21/20 06:36 08/21/20 Hematocrit 36.5 % (36.0-46.0) 08/21/20 06:36 08/21/20 Platelet Count 232 10^3/uL (130-400) 08/21/20 06:36 08/21/20 Venous Blood Lactate 0.5 mmol/L (0.6-1.4) L 08/21/20 06:36 08/21/20 Complete Metabolic Panel: Sodium Level 143 mmol/L (136-145) 08/21/20 06:36 08/21/20 Potassium Level 4.0 mmol/L (3.5-5.1) 08/21/20 06:36 08/21/20 Chloride Level 109 mmol/L (98-107) H 08/21/20 06:36 08/21/20 Carbon Dioxide Level 24.9 mmol/L (21.0-32.0) 08/21/20 06:36 08/21/20 Blood Urea Nitrogen 11 mg/dL (7-18) 08/21/20 06:36 08/21/20 Creatinine 0.6 mg/dL (0.55-1.02) 08/21/20 06:36 08/21/20 Estimated GFR/1.73 m2 >= 60.00 (mL/min/1.73m2) 08/21/20 06:36 08/21/20 Magnesium Level 2.2 mg/dL (1.8-2.4) 08/21/20 06:36 08/21/20 Calcium Level 7.6 mg/dL (8.5-10.1) L 08/21/20 06:36 08/21/20 Albumin 2.4 g/dL (3.4-5.0) L 08/21/20 06:36 08/21/20 Glucose Level 176 mg/dL (74-106) H 08/21/20 06:36 08/21/20 Liver Function Panel: Alanine Aminotransferase (ALT/SGPT) 35 U/L (14-59) 08/21/20 06:36 08/21/20 Aspartate Amino Transf (AST/SGOT) 24 U/L (15-37) 08/21/20 06:36 08/21/20 Coagulation Panel: No Data to Display Cardiac Panel: Troponin I < 0.05 ng/mL (<0.06) 08/19/20 22:35 08/19/20 Arterial Blood Gas: No Data to Display Venous Blood Gas: No Data to Display Pancreas Panel: Lipase 31 U/L (73-393) 08/19/20 19:40 08/19/20 Thyroid Panel: No Data to Display Infectious Disease: Coronavirus (COVID-19)(PCR) Negative (Negative) 08/19/20 22:45 08/19/20 Coronavirus 2019 Source Nasal/Nares 08/19/20 22:45 08/19/20 Blood Cultures: No Data to Display Toxicology Panel: No Data to Display
[2020-08-21 14:51] VITALS: BMI 38.2
[2020-08-21] MEDS: Nystatin POWDER 60 GM JAR TP ×2 (15:05→19:53)
[2020-08-21 15:40] VITALS: BP 198/78; PULSE 74; RESP 18; TEMP 36.4; O2SAT 96
--- NOTE | 2020-08-21 17:05 | CMPROGNOTE_ITS ---
- If Service Date Differs Date of service: 08/21/20 Time of Service: 17:05 Care Management Progress Note S/O: Lis was lying in bed when CM met with her. She was tearful and reported that she is in pain. She stated that her RN had just given her pain medication. She is awaiting a bed at [facility] for transfer, and will go to the first bed available. She was seen by anesthesiology today, who is also recommending transfer due to her complicated medical history. CM will continue to follow. A: Lis is a 55 year old female admitted to [facility] on 08/19/20 for an abdominal mass. P: Lis will be transferred to [facility] once a bed becomes available. She will transport via ambulance, coordinated by RN [employer] Clerk. She will follow up with her PCP and discharge plan of care. CM will continue to follow.
[2020-08-21] MEDS: POTASSIUM CHLORIDE/D5-0.45NACL 1,000 ML 125 MEQ IV (17:56)
[2020-08-21 17:59] VITALS: PULSE 80
[2020-08-21] MEDS: oxyCODONE 10 MG TAB PO (18:53)
[2020-08-21] MEDS: Insulin Aspart 300 UNITS/3 ML PEN SC (18:54)
[2020-08-21] MEDS: Pantoprazole 40 MG VIAL IVP (19:50)
[2020-08-21] MEDS: Triamcinolone 0.1% CR 15 GM TUBE TP (19:57)
[2020-08-21 20:14] VITALS: BP 156/71; PULSE 76; RESP 18; TEMP 36.5; O2SAT 96
[2020-08-21] MEDS: Prazosin 5 MG CAP 10 MG PO (22:36)
[2020-08-21] MEDS: QUEtiapine 100 MG TAB 200 MG PO (22:37)
[2020-08-21] MEDS: QUEtiapine 300 MG TAB 600 MG PO (22:37)
[2020-08-22] VITALS (13 sets, daily range): BP systolic 133–167; BP diastolic 68–82; PULSE 68–94; RESP 16–20; TEMP 36.1–37.1; O2SAT 93–99
[2020-08-22] MEDS: CEFEPIME 2 GM in Normal Saline 100 ML IVPB ×2 (00:24→12:21)
[2020-08-22] MEDS: POTASSIUM CHLORIDE/D5-0.45NACL 1,000 ML 125 MEQ IV ×2 (01:42→09:56)
[2020-08-22] MEDS: ACETAMINOPHEN 1,000 MG/100 ML BTL 400 MG IVPB ×3 (05:31→21:28)
[2020-08-22] MEDS: Insulin Aspart 300 UNITS/3 ML PEN SC ×3 (06:08→17:05)
[2020-08-22] MEDS: Normal Saline 500 ML 30 ML IV (06:20)
[2020-08-22] MEDS: metroNIDAZOLE 500 MG/100 ML BAG 100 MG IVPB ×3 (06:20→23:23)
[2020-08-22 07:00] LABS: Abs Immature Grans 0.06 10^3/uL (0.0-0.06); Absolute Basophil Count 0.04 10^3/uL (0.0-0.2); Absolute Eosinophil Count 0.36 10^3/uL (0.0-0.7); Absolute Lymphocyte Count 1.13 10^3/uL (1.2-3.4); Absolute Monocyte Count 0.62 10^3/uL (0.1-0.8); Absolute Neutrophil Count 6.11 10^3/uL (1.2-6.7); Basophils % 0.5; Eosinophils % 4.3; HCT 31.9 % (36.0-46.0); HGB 10.3 g/dL (11.2-15.7); Immature Grans % 0.7; Lymphocytes % 13.6; MCHC 32.3 % (32.0-36.0); MCV 83.5 fL (80-95); MPV 9.3 fL (8.0-11.0); Monocytes % 7.5; Neutrophils % 73.4; Nucleated RBC 0 %; Platelet Count 209 10^3/uL (130-400); RBC 3.82 10^6/uL (3.93-5.22); RDW 13.9 % (11.7-14.6); RDW-SD 42.3 fL; WBC 8.32 10^3/uL (4.4-10.8)
[2020-08-22 07:25] LABS: ALT 24 U/L (14-59); AST 14 U/L (15-37); Albumin 2.3 g/dL (3.4-5.0); Alkaline Phosphatase 125 U/L (46-116); BUN 7 mg/dL (7-18); Bilirubin, Total 0.3 mg/dL (0.2-1.0); CREATININE 0.5 mg/dL (0.55-1.02); Calcium 7.5 mg/dL (8.5-10.1); Chloride 109 mmol/L (98-107); Glucose 189 mg/dL (74-106); LDH 209 U/L (81-234); Potassium 3.5 mmol/L (3.5-5.1); Sodium 141 mmol/L (136-145); Total Protein 5.3 g/dL (6.4-8.2)
[2020-08-22] MEDS: Isosorbide Mononitrate 30 MG TABCR PO (08:27)
[2020-08-22] MEDS: Clopidogrel 75 MG TAB PO (08:27)
[2020-08-22] MEDS: Aspirin E.C. 81 MG TABEC PO (08:27)
[2020-08-22] MEDS: Atorvastatin 40 MG TAB 80 MG PO (08:28)
[2020-08-22] MEDS: Sertraline 50 MG TAB 200 MG PO (08:28)
[2020-08-22] MEDS: Lisinopril 20 MG TAB PO (08:28)
[2020-08-22] MEDS: amLODIPine 5 MG TAB PO (08:29)
[2020-08-22] MEDS: oxyCODONE 10 MG TAB PO (08:34)
[2020-08-22] MEDS: Triamcinolone 0.1% CR 15 GM TUBE TP ×2 (08:35→22:59)
[2020-08-22] MEDS: Nystatin POWDER 60 GM JAR TP ×2 (08:35→17:54)
[2020-08-22] MEDS: Normal Saline Flush 10 ML SYR IVP ×4 (10:57→22:58)
--- NOTE | 2020-08-22 13:21 | PGE_ITS ---
Date of Service Date of service: 08/22/20 Time of Service: 13:21 Assessment and Plan Assessment and plan (1) Abdominal pain: Status: Acute Assessment and plan: 55-year-old female with an extensive medical history, including stroke in February 2020, and diabetes (A1c 9.9). On presentation, the ED consulted with [facility] and they agreed she would be an appropriate transfer but they have no capacity. Given her recent stroke, <6 months ago, the anesthesia team feels that she is not an appropriate candidate for this facilitiy, and should be transferred to a tertiary center for any surgical/anesthesia care. Multiple attempts to transfer the patient to [facility] and [facility] have not been achieved due to lack of capacity. She has been hemodynamically stable and afebrile throughout her hospitalization. She is not demonstrating clinical signs of obstruction or perforation. clear liquid diet pain control OOB and ambulating call out to [facility] for possible down & back liver biopsy (2) Abdominal mass: Status: Acute Subjective Subjective Patient reports: feels better, still having pain, tolerating liquids well, flatus, bowel movement and afebrile; denies nausea and vomiting Interval history since last seen: The patient is feeling better today overall. She is tolerating clear liquids and does not wish to have much more than that. Her pain is better controlled. She is eager to go home. Exam Const General: cooperative, comfortable and no acute distress Nutritional Appearance: obese Orientation: alert, awake and oriented x3 Resp Effort & Inspection: normal respiratory effort and able to speak in complete sentences Auscultation: clear to auscultation bilaterally Cardio Rate: regular rate Rhythm: regular rhythm Heart Sounds: S1 normal, S2 normal and murmur GI Palpation: soft, no guarding and tender (soft, overall decreased tenderness in RUQ, no peritoneal signs) in the RUQ; Rovsing's sign negative Auscultation: normal bowel sounds Neuro General: patient alert, patient awake and patient oriented x3 Speech: speech normal Psych Speech and Movement: speech and movement normal Mood: congruent mood Affect: normal affect Attitude: cooperative Thought Process: normal Thought Content: normal Insight: insight good Judgment: judgment good Objective Last Vital Signs Temp 98.8 F 08/22/20 11:25 Pulse 77 08/22/20 11:25 Resp 20 08/22/20 11:25 BP 158/73 H 08/22/20 11:25 Pulse Ox 97 08/22/20 11:25 Laboratory Results - last 24 hr 08/22/20 08/22/20 06:30 06:30 WBC 8.32 RBC 3.82 L Hgb 10.3 L Hct 31.9 L MCV 83.5 MCH 27.0 MCHC 32.3 RDW 13.9 Plt Count 209 MPV 9.3 Immature Gran % 0.7 Neutrophils % 73.4 Lymphocytes % 13.6 Monocytes % 7.5 Eosinophils % 4.3 Basophils % 0.5 Nucleated RBC % 0 Absolute Neutrophils 6.11 Absolute Lymphocytes 1.13 L Absolute Monocytes 0.62 Absolute Eosinophils 0.36 Absolute Basophils 0.04 Sodium 141 Potassium 3.5 Chloride 109 H Carbon Dioxide 24.0 Anion Gap 8.0 BUN 7 Creatinine 0.5 L Estimated GFR/1.73 m2 >= 60.00 Glucose 189 H Calcium 7.5 L Magnesium 2.0 Total Bilirubin 0.3 AST 14 L ALT 24 Alkaline Phosphatase 125 H Lactate Dehydrogenase 209 Total Protein 5.3 L Albumin 2.3 L
[2020-08-22 15:43] LABS: INR 1.1 (0.9-1.1); PTT Activated 19.6 sec (21.0-27.5); Prothrombin Time 10.7 sec (9.3-11.0)
[2020-08-22] MEDS: Calcium Carbonate *TUMS* 500 MG CHEW PO (19:49)
[2020-08-22] MEDS: oxyCODONE 5 MG TAB PO (19:49)
[2020-08-22] MEDS: Pantoprazole 40 MG VIAL IVP (21:29)
[2020-08-22] MEDS: QUEtiapine 300 MG TAB 600 MG PO (21:30)
[2020-08-22] MEDS: Prazosin 5 MG CAP 10 MG PO (21:30)
[2020-08-22] MEDS: Metoprolol 50 MG TAB PO (21:30)
[2020-08-22] MEDS: QUEtiapine 100 MG TAB 200 MG PO (21:30)
[2020-08-22] MEDS: Ondansetron 4 MG/2 ML VIAL IVP (22:46)
[2020-08-23] VITALS (8 sets, daily range): BP systolic 162–175; BP diastolic 68–86; PULSE 58–65; RESP 16–19; TEMP 36.4–37.1; O2SAT 96–98
[2020-08-23] MEDS: CEFEPIME 2 GM in Normal Saline 100 ML IVPB ×3 (00:42→23:16)
[2020-08-23] MEDS: Insulin Aspart 300 UNITS/3 ML PEN SC ×3 (00:54→18:01)
[2020-08-23] MEDS: oxyCODONE 5 MG TAB PO ×2 (00:57→05:32)
[2020-08-23] MEDS: POTASSIUM CHLORIDE/D5-0.45NACL 1,000 ML 125 MEQ IV ×3 (02:52→22:20)
[2020-08-23] MEDS: ACETAMINOPHEN 1,000 MG/100 ML BTL 400 MG IVPB ×3 (05:17→21:55)
[2020-08-23] MEDS: metroNIDAZOLE 500 MG/100 ML BAG 100 MG IVPB ×3 (05:43→21:55)
[2020-08-23] MEDS: Polyethylene Glycol 3350 17 GM PACKET PO (07:58)
[2020-08-23] MEDS: Atorvastatin 40 MG TAB 80 MG PO (07:58)
[2020-08-23] MEDS: Aspirin E.C. 81 MG TABEC PO (07:58)
[2020-08-23] MEDS: Sertraline 50 MG TAB 200 MG PO (07:58)
[2020-08-23] MEDS: Isosorbide Mononitrate 30 MG TABCR PO (07:59)
[2020-08-23] MEDS: Metoprolol 50 MG TAB PO ×2 (07:59→19:24)
[2020-08-23] MEDS: amLODIPine 5 MG TAB PO (07:59)
[2020-08-23] MEDS: Clopidogrel 75 MG TAB PO (07:59)
[2020-08-23] MEDS: Lisinopril 20 MG TAB PO (07:59)
[2020-08-23] MEDS: Ondansetron 4 MG/2 ML VIAL IVP (08:32)
[2020-08-23 09:43] LABS: Abs Immature Grans 0.06 10^3/uL (0.0-0.06); Absolute Basophil Count 0.05 10^3/uL (0.0-0.2); Absolute Eosinophil Count 0.38 10^3/uL (0.0-0.7); Absolute Lymphocyte Count 1.01 10^3/uL (1.2-3.4); Absolute Monocyte Count 0.69 10^3/uL (0.1-0.8); Absolute Neutrophil Count 6.08 10^3/uL (1.2-6.7); Basophils % 0.6; Eosinophils % 4.6; HCT 34.3 % (36.0-46.0); Immature Grans % 0.7; Lymphocytes % 12.2; MCH 27.2 pg (27.0-33.0); MCHC 32.1 % (32.0-36.0); MCV 84.9 fL (80-95); Monocytes % 8.3; Neutrophils % 73.6; Nucleated RBC 0 %; Platelet Count 227 10^3/uL (130-400); RBC 4.04 10^6/uL (3.93-5.22); RDW 14.2 % (11.7-14.6); RDW-SD 43.5 fL; WBC 8.27 10^3/uL (4.4-10.8)
[2020-08-23 09:54] LABS: ALT 22 U/L (14-59); AST 15 U/L (15-37); Albumin 2.4 g/dL (3.4-5.0); Alkaline Phosphatase 120 U/L (46-116); Anion Gap 6.9 mmol/L (3-11); BUN 4 mg/dL (7-18); Bilirubin, Total 0.4 mg/dL (0.2-1.0); CO2 26.1 mmol/L (21.0-32.0); CREATININE 0.5 mg/dL (0.55-1.02); Calcium 7.8 mg/dL (8.5-10.1); Chloride 109 mmol/L (98-107); Glucose 184 mg/dL (74-106); Magnesium 1.9 mg/dL (1.8-2.4); Potassium 3.5 mmol/L (3.5-5.1); Sodium 142 mmol/L (136-145); Total Protein 5.5 g/dL (6.4-8.2)
[2020-08-23] MEDS: Normal Saline 500 ML 30 ML IV ×2 (11:47→14:19)
--- NOTE | 2020-08-23 13:00 | DI.RAD_ITS ---
Exam(s) XR ABD FLAT UPRIGHT PA CHEST CLINICAL HISTORY: eval for obstruction. COMPARISON: CT CT ABDOMEN PELVIS W from 08/19/[address] ABDOMEN PELVIS W from 08/19/2020 CR XR ABD FLAT UPRIGHT PA CHEST from 08/21/2020 CR XR ABD FLAT UPRIGHT PA CHEST from 08/21/2020 FINDINGS: LUNGS: Clear. No pleural abnormality seen. HEART: Normal. MEDIASTINUM: Normal. BOWEL GAS PATTERN: Nondistended bowel loops. Bones: No acute abnormality. ABNORMAL COLLECTIONS OF AIR: No abnormal collection of air. No pneumoperitoneum. CALCIFICATIONS: None. No radiopaque renal, ureteral, or bladder calcification. OTHER FINDINGS: The tip of the left PICC line is in good position in the superior vena cava. IMPRESSION: 1. Nonobstructive bowel gas pattern. 2. No acute pulmonary findings.
--- NOTE | 2020-08-23 14:08 | W.PM.PROGNOT ---
Date of Service Date of service: 08/23/20 Time of Service: 13:10 Assessment and Plan Assessment and plan (1) Abdominal pain: Status: Acute Assessment and plan: (2) Abdominal mass: Status: Acute Assessment and plan: 55-year-old female with an extensive medical history, including stroke in February 2020, and diabetes (A1c 9.9). On presentation, the ED consulted with [facility] and they agreed she would be an appropriate transfer but they have no capacity. Given her recent stroke, <6 months ago, the anesthesia team feels that she is not an appropriate candidate for this facilitiy, and should be transferred to a tertiary center for any surgical/anesthesia care. Multiple attempts to transfer the patient to [facility] and [facility] have not been achieved due to lack of capacity. She has been hemodynamically stable and afebrile throughout her hospitalization. With nausea today, will obtain abdominal x-rays clear liquids pain control IV fluids OOB and ambulating Spoke with [facility] yesterday, they state that they can do percutaneous liver biopsy, with patient on Plavix. Will attempt to schedule down and back liver biopsy on Monday, 08/24 will make NPO past midnight Subjective Subjective Patient reports: still having pain, flatus, no bowel movement, nausea and vomiting Interval history since last seen: Pt is not feeling as well today. She just reported to me that she vomited this morning and last night. She feels achy all over, with more abdominal pain into the lower abdomen and into the right flank. Her last bowel movement was on 08/21. Exam Const General: cooperative, healthy appearing and comfortable Orientation: alert, awake and oriented x3 Resp Effort & Inspection: normal respiratory effort and able to speak in complete sentences Auscultation: clear to auscultation bilaterally GI Inspection: non-distended Palpation: soft, not firm, no guarding, not rigid and tender in the RLQ and in the RUQ Neuro General: patient alert, patient awake and patient oriented x3 Cognition: normal cognition Speech: speech normal Psych Appearance: grossly normal Mood: congruent mood Attitude: cooperative Thought Process: normal Thought Content: normal Insight: insight good Judgment: judgment good Objective Last Vital Signs Temp 98.2 F 08/23/20 11:15 Pulse 61 08/23/20 11:15 Resp 17 08/23/20 11:15 BP 170/68 H 08/23/20 11:15 Pulse Ox 96 08/23/20 11:15 Laboratory Results - last 24 hr 08/22/20 08/22/20 08/23/20 14:45 15:22 09:30 WBC RBC Hgb Hct MCV MCH MCHC RDW Plt Count MPV Immature Gran % Neutrophils % Lymphocytes % Monocytes % Eosinophils % Basophils % Nucleated RBC % Absolute Neutrophils Absolute Lymphocytes Absolute Monocytes Absolute Eosinophils Absolute Basophils PT Cancelled 10.7 INR Cancelled 1.1 APTT Cancelled 19.6 L Sodium 142 Potassium 3.5 Chloride 109 H Carbon Dioxide 26.1 Anion Gap 6.9 BUN 4 L Creatinine 0.5 L Estimated GFR/1.73 m2 >= 60.00 Glucose 184 H Calcium 7.8 L Magnesium 1.9 Total Bilirubin 0.4 AST 15 ALT 22 Alkaline Phosphatase 120 H Total Protein 5.5 L Albumin 2.4 L 08/23/20 09:30 WBC 8.27 RBC 4.04 Hgb 11.0 L Hct 34.3 L MCV 84.9 MCH 27.2 MCHC 32.1 RDW 14.2 Plt Count 227 MPV 9.0 Immature Gran % 0.7 Neutrophils % 73.6 Lymphocytes % 12.2 Monocytes % 8.3 Eosinophils % 4.6 Basophils % 0.6 Nucleated RBC % 0 Absolute Neutrophils 6.08 Absolute Lymphocytes 1.01 L Absolute Monocytes 0.69 Absolute Eosinophils 0.38 Absolute Basophils 0.05 PT INR APTT Sodium Potassium Chloride Carbon Dioxide Anion Gap BUN Creatinine Estimated GFR/1.73 m2 Glucose Calcium Magnesium Total Bilirubin AST ALT Alkaline Phosphatase Total Protein Albumin
[2020-08-23] MEDS: Potassium Chloride 20 MEQ TABCR 40 MEQ PO (14:18)
[2020-08-23] MEDS: oxyCODONE 10 MG TAB PO ×2 (14:23→19:24)
[2020-08-23] MEDS: Nystatin POWDER 60 GM JAR TP ×2 (14:24→19:25)
--- NOTE | 2020-08-23 15:05 | DI.VRAD_ITS ---
Addendum created by Tammie Ibarra MD on 08/23/2020 3:08:29 PM EDT: There are air-fluid levels throughout the abdomen. Differential considerations include ileus and obstruction. Initial report created on 08/23/2020 3:04:53 PM EDT: PROCEDURE INFORMATION: Exam: XR Complete Acute Abdomen Series Including Chest Exam date and time: 08/23/2020 1:03 PM Age: 55 years old Clinical indication: Other: Eval for obstruction TECHNIQUE: Imaging protocol: XR complete acute abdomen series, including 2 or more views of the abdomen and a single view chest. Total images: 4 COMPARISON: CR XR ABD FLAT UPRIGHT PA CHEST 08/21/2020 1:12 PM FINDINGS: Tubes, catheters and devices: The left upper extremity PICC tip projects over the lower SVC. Lungs: Normal. No consolidation. Pleural spaces: Normal. No pleural effusions. No pneumothorax. Heart/Mediastinum: Normal. No cardiomegaly. Gastrointestinal tract: Normal. No bowel dilation. Intraperitoneal space: Normal. No free air. Bones/joints: Normal. No acute fracture. Soft tissues: Normal. IMPRESSION: Left upper extremity PICC tip projects over the lower SVC. Dictated and Authenticated by: Tammie Ibarra MD. Ordering:DAPHNIE Marshall MD
[2020-08-23] MEDS: Triamcinolone 0.1% CR 15 GM TUBE TP (19:25)
[2020-08-23] MEDS: Pantoprazole 40 MG VIAL IVP (19:25)
[2020-08-23] MEDS: Normal Saline Flush 10 ML SYR IVP (19:25)
[2020-08-23] MEDS: Prazosin 5 MG CAP 10 MG PO (21:54)
[2020-08-23] MEDS: QUEtiapine 100 MG TAB 200 MG PO (21:55)
[2020-08-23] MEDS: QUEtiapine 300 MG TAB 600 MG PO (21:55)
[2020-08-24] MEDS: Insulin Aspart 300 UNITS/3 ML PEN SC ×3 (00:02→11:46)
[2020-08-24 00:03] VITALS: BP 164/78; PULSE 65; RESP 18; TEMP 36.2; O2SAT 94
[2020-08-24 03:15] VITALS: BP 134/84; PULSE 64; RESP 18; TEMP 36.3; O2SAT 97
[2020-08-24] MEDS: Ondansetron 4 MG/2 ML VIAL IVP (06:05)
[2020-08-24] MEDS: metroNIDAZOLE 500 MG/100 ML BAG 100 MG IVPB (06:05)
[2020-08-24] MEDS: ACETAMINOPHEN 1,000 MG/100 ML BTL 400 MG IVPB (06:05)
[2020-08-24] MEDS: oxyCODONE 10 MG TAB PO (06:06)
[2020-08-24 06:48] LABS: Abs Immature Grans 0.08 10^3/uL (0.0-0.06); Absolute Basophil Count 0.06 10^3/uL (0.0-0.2); Absolute Eosinophil Count 0.36 10^3/uL (0.0-0.7); Absolute Lymphocyte Count 1.02 10^3/uL (1.2-3.4); Absolute Monocyte Count 0.68 10^3/uL (0.1-0.8); Absolute Neutrophil Count 6.77 10^3/uL (1.2-6.7); Basophils % 0.7; HCT 36.8 % (36.0-46.0); HGB 11.7 g/dL (11.2-15.7); Immature Grans % 0.9; Lymphocytes % 11.4; MCH 27.1 pg (27.0-33.0); MCHC 31.8 % (32.0-36.0); MCV 85.2 fL (80-95); MPV 9.4 fL (8.0-11.0); Monocytes % 7.6; Neutrophils % 75.4; Nucleated RBC 0 %; Platelet Count 221 10^3/uL (130-400); RBC 4.32 10^6/uL (3.93-5.22); RDW 14.2 % (11.7-14.6); RDW-SD 43.7 fL; WBC 8.97 10^3/uL (4.4-10.8)
[2020-08-24 07:15] LABS: ALT 21 U/L (14-59); AST 19 U/L (15-37); Albumin 2.4 g/dL (3.4-5.0); Alkaline Phosphatase 120 U/L (46-116); BUN 3 mg/dL (7-18); Bilirubin, Total 0.4 mg/dL (0.2-1.0); CREATININE 0.6 mg/dL (0.55-1.02); Calcium 7.9 mg/dL (8.5-10.1); Chloride 107 mmol/L (98-107); Glucose 271 mg/dL (74-106); Magnesium 1.8 mg/dL (1.8-2.4); Potassium 4.1 mmol/L (3.5-5.1); Sodium 141 mmol/L (136-145); Total Protein 5.8 g/dL (6.4-8.2)
[2020-08-24 07:18] VITALS: PULSE 71
[2020-08-24 07:35] VITALS: BP 174/86; PULSE 66; RESP 15; TEMP 37.2; O2SAT 94
[2020-08-24] MEDS: Metoprolol 50 MG TAB PO (07:46)
[2020-08-24] MEDS: amLODIPine 5 MG TAB PO (07:46)
[2020-08-24] MEDS: Clopidogrel 75 MG TAB PO (07:47)
[2020-08-24] MEDS: Aspirin E.C. 81 MG TABEC PO (07:47)
[2020-08-24] MEDS: Normal Saline Flush 10 ML SYR IVP (07:47)
[2020-08-24] MEDS: Atorvastatin 40 MG TAB 80 MG PO (07:47)
[2020-08-24] MEDS: Isosorbide Mononitrate 30 MG TABCR PO (07:47)
[2020-08-24] MEDS: Lisinopril 20 MG TAB PO (07:47)
[2020-08-24] MEDS: Sertraline 50 MG TAB 200 MG PO (07:47)
--- NOTE | 2020-08-24 08:07 | PGE_ITS ---
Documented by User: NASIR Rojas 08/24/20 08:09 Date of Service Date of service: 08/24/20 Time of Service: 08:07 Assessment and Plan Assessment and plan (1) Abdominal pain: Status: Acute Assessment and plan: (2) Abdominal mass: Status: Acute Assessment and plan: 55-year-old female with an extensive medical history, including stroke in February 2020, and diabetes (A1c 9.9). On presentation, the ED consulted with [facility] and they agreed she would be an appropriate transfer but they have no capacity. Given her recent stroke, <6 months ago, the anesthesia team feels that she is not an appropriate candidate for this facilitiy, and should be transferred to a tertiary center for any surgical/anesthesia care. Multiple attempts to transfer the patient to [facility] and [facility] have not been achieved due to lack of capacity. She has been hemodynamically stable and afebrile throughout her hospitalization. With nausea today, will obtain abdominal x-rays clear liquids pain control IV fluids OOB and ambulating Dr. Delaney has spoken with IR at [facility]. She is attempting to schedule down and back liver biopsy for today, Monday, 08/24 Patient is currently NPO Subjective Subjective Interval history since last seen: Patient reports that her pain is pretty good this morning. Per nsg oxycodone was last given at 0600. She express fatigue, but otherwise is comfortable at this time. She expressed that she is eager to return home. Exam Const General: cooperative, healthy appearing and comfortable Orientation: alert and oriented x3 Resp Effort & Inspection: normal respiratory effort, no audible wheezes and no cough GI Palpation: soft, no guarding and nontender Objective Last Vital Signs Temp 37.2 C 08/24/20 07:35 Pulse 66 08/24/20 07:35 Resp 15 08/24/20 07:35 BP 174/86 H 08/24/20 07:35 Pulse Ox 94 08/24/20 07:35 Laboratory Results - last 24 hr 08/23/20 08/23/20 08/24/20 09:30 09:30 06:15 WBC 8.27 RBC 4.04 Hgb 11.0 L Hct 34.3 L MCV 84.9 MCH 27.2 MCHC 32.1 RDW 14.2 Plt Count 227 MPV 9.0 Immature Gran % 0.7 Neutrophils % 73.6 Lymphocytes % 12.2 Monocytes % 8.3 Eosinophils % 4.6 Basophils % 0.6 Nucleated RBC % 0 Absolute Neutrophils 6.08 Absolute Lymphocytes 1.01 L Absolute Monocytes 0.69 Absolute Eosinophils 0.38 Absolute Basophils 0.05 Sodium 142 141 Potassium 3.5 4.1 Chloride 109 H 107 Carbon Dioxide 26.1 26.0 Anion Gap 6.9 8.0 BUN 4 L 3 L Creatinine 0.5 L 0.6 Estimated GFR/1.73 m2 >= 60.00 >= 60.00 Glucose 184 H 271 H Calcium 7.8 L 7.9 L Magnesium 1.9 1.8 Total Bilirubin 0.4 0.4 AST 15 19 ALT 22 21 Alkaline Phosphatase 120 H 120 H Total Protein 5.5 L 5.8 L Albumin 2.4 L 2.4 L 08/24/20 06:15 WBC 8.97 RBC 4.32 Hgb 11.7 Hct 36.8 MCV 85.2 MCH 27.1 MCHC 31.8 L RDW 14.2 Plt Count 221 MPV 9.4 Immature Gran % 0.9 Neutrophils % 75.4 Lymphocytes % 11.4 Monocytes % 7.6 Eosinophils % 4.0 Basophils % 0.7 Nucleated RBC % 0 Absolute Neutrophils 6.77 H Absolute Lymphocytes 1.02 L Absolute Monocytes 0.68 Absolute Eosinophils 0.36 Absolute Basophils 0.06 Sodium Potassium Chloride Carbon Dioxide Anion Gap BUN Creatinine Estimated GFR/1.73 m2 Glucose Calcium Magnesium Total Bilirubin AST ALT Alkaline Phosphatase Total Protein Albumin Documented by User: Rolando Delaney MD 08/24/20 11:11
[2020-08-24] MEDS: CEFEPIME 2 GM in Normal Saline 100 ML IVPB (11:22)
--- NOTE | 2020-08-24 11:32 | NUR.NOTE ---
Nursing Note: 08/24/20 11:32 This RN spoke with Lisset from [facility] interventional radiology regarding this patient. This RN answered all questions from Lisset regarding planned procedure tomorrow, 08/25, including recent labs and use of Plavix. Patient is to be NPO after midnight for procedure. NovoLog is not to be given in the morning, interventional radiology would like to be called for FS >300. Per Lisset, recent labs need to be printed and sent with patient. Estimated time patient will be at [facility] is 4 hours. Patient is scheduled to be at '[facility]' at 09:50. Charge nurse, Nancy Ngo, notified.
[2020-08-24 12:02] VITALS: BP 153/84; PULSE 76; RESP 18; TEMP 36.1; O2SAT 98
--- NOTE | 2020-08-24 12:28 | NUR.NOTE ---
Nursing Note: 12:28 08/24/20 [facility] picked up patient for transfer to [facility] emergency department at approximately 12:20, this RN called report to Flakito in the ED at 12:25 and gave a [id number] handoff.
--- NOTE | 2020-08-24 12:30 | DSE_ITS ---
Date of service: 08/24/20 Time of Service: 12:30 DS: Diagnosis Discharge Diagnosis (1) Abdominal pain: Status: Acute (2) Colonic mass: Status: Acute (3) Liver lesion: Status: Acute Discharge Plan Disposition [facility] Condition: Poor Discharge Details Reason For Visit: Abdominal Mass Admit Date/Time: 08/19/20 22:19 Admit Provider: Tiara Mccormick Attending Provider: Tiara Mccormick Primary Care Provider: Paula Harris Hospital Course Hospital Course: This is a 55yo female with extensive medical history, including a CVA in 03/05 on ASA/Plavix. She presented with several days of abdominal pain. A CT scan revealed a large ascending colon mass, several liver lesions, and mesenteric adenopathy concerning for metastatic colon cancer. She was admitted late on 08/19/20 after the ED attempted to transfer to an outside tertiary center, but was unable to due to bed inavailability. She was placed on antibiotics, and made NPO. Multiple attempts were made to transfer the patient to local tertiary care centers without success. The patient was given a clear liquid diet on 08/21, which she initially tolerated, but then had emesis on 08/22. A consult for percutaneous liver biopsy has been arranged with interventional radiology for 08/25. The patient has been hemodynamically stable, and non-toxic throughout. Home Meds and New Rx's Prescriptions: No Action halobetasol propionate 0.05 % cream 1 applic topical DAILY Qty: 15 RF: 3 Victoza 2-Ozzie 0.6 mg/0.1 mL (18 mg/3 mL) pen injector 1.2 mg subcut DAILY Qty: 6 RF: 6 polyethylene glycol 3350 [Miralax] 17 gram/dose powder 17 g PO DAILY Qty: 510 RF: 3 prazosin 5 mg capsule 10 mg PO QHS Qty: 180 RF: 3 (DME) lancets 28 gauge misc 1 ea Miscellaneous TID Qty: 400 RF: 6 (DME) pen needle, diabetic [BD Ultra-Fine Lorraine Pen Needle] 32 gauge x 5/32 needle See Rx Instructions .ROUTE .MEDSUPPLY Qty: 100 RF: 6 lisinopril 40 mg tablet 20 mg PO DAILY Qty: 90 RF: 3 isosorbide mononitrate 30 mg tablet extended release 24 hr 30 mg PO DAILY RF: 0 Emgality Pen 120 mg/mL pen injector 120 mg subcut QMONTH Qty: 1 RF: 11 albuterol sulfate [ProAir HFA] 90 mcg/actuation HFA aerosol inhaler 2 puff Inhalation Q6H PRN PRN (Reason: shortness of breath or wheezing) Qty: 18 RF: 6 aspirin [Ecotrin Low Strength] 81 mg tablet,delayed release (DR/EC) 81 mg PO DAILY Qty: 90 RF: 3 triamcinolone acetonide 0.5 % cream 1 applic TP BID Qty: 454 RF: 6 nitroglycerin [Nitrostat] 0.4 mg tablet, sublingual 0.4 mg Sublingual PRN Qty: 60 RF: 3 sennosides [senna] 8.6 mg tablet 34.4 mg PO QHS RF: 0 (DME) blood-glucose meter Misc See Rx Instructions .ROUTE .MEDSUPPLY Qty: 1 RF: 0 (DME) Blood Glucose Test Strip See Rx Instructions .ROUTE .MEDSUPPLY Qty: 200 RF: 3 pantoprazole [Protonix] 40 mg tablet,delayed release (DR/EC) 40 mg PO DAILY Qty: 90 RF: 3 quetiapine 400 mg tablet 800 mg PO QHS Qty: 180 RF: 3 sertraline 100 mg tablet 200 mg PO DAILY Qty: 90 RF: 3 amlodipine 5 mg tablet 5 mg PO DAILY Qty: 90 RF: 3 clopidogrel 75 mg tablet 75 mg PO DAILY Qty: 90 RF: 3 metoprolol succinate 100 mg tablet extended release 24 hr 100 mg PO DAILY Qty: 90 RF: 3 (DME) diaper,brief,adult,disposable Misc See Rx Instructions .ROUTE .MEDSUPPLY Qty: 10 RF: 0 atorvastatin 80 mg tablet 80 mg PO DAILY Qty: 90 RF: 3 insulin glargine 100 unit/mL solution 45 unit subcut BID MDD 90 units Qty: 30 RF: 3 (DME) Comfort Shield Adult Diaper Misc See Rx Instructions .ROUTE .MEDSUPPLY Qty: 120 RF: 12 (DME) Knee ankle foot orthotic (KAFO) See Rx Instructions .Route .MEDSUPPLY Qty: 1 RF: 0 insulin aspart U-100 [Novolog Flexpen U-100 Insulin] 100 unit/mL (3 mL) Insulin Pen SUBCUT RF: 0 lorazepam 1 mg Tablet 1 mg PO QHS PRNRF: 0 Discharge Instructions Activity:: Activity as Tolerated Diet:: NPO DS: Summary Time Spent with Patient providing and/or coordinating discharge services: Greater than 30 minutes Status at Discharge Functional status at discharge: independent ambulation Overall status at discharge: patient is not back to baseline Mental Status: mental status grossly normal Speech and Movement: speech and movement normal Mood: congruent mood Affect: normal affect Exam Psych Mental Status: mental status grossly normal Speech and Movement: speech and movement normal Mood: congruent mood Affect: normal affect DS: Data Vitals/I&O Vitals and I&O: Vital Signs Temperature 97.0 F L 08/24/20 12:02 Temperature Source Tympanic 08/24/20 12:02 Pulse 76 08/24/20 12:02 Pulse Rhythm Regular 08/24/20 07:42 Respiratory Rate 18 08/24/20 12:02 Respiratory Effort Non-Labored 08/24/20 07:42 Respiratory Depth Normal 08/24/20 07:42 Respiratory Pattern Normal 08/24/20 07:42 Blood Pressure 153/84 H 08/24/20 12:02 Blood Pressure Position Sitting 08/19/20 19:14 Pulse Oximetry 98 08/24/20 12:02 Oxygen Delivery Method Room Air 08/24/20 12:02 Oxygen Flow Rate 0 08/24/20 12:02 Pain Level 7 08/24/20 12:02 Comment 08/22/20 15:38 Intake & Output 08/23/20 08/24/20 08/24/20 23:59 11:59 23:59 Intake Total 4456 / 5006 80 / 80 Output Total 1200 / 2550 1850 / 1850 Balance 3256 / 2456 -1770 / -1770 Intake: IV 2836 / 3136 Oral 1620 / 1870 80 / 80 Output: Urine 1200 / 2550 1850 / 1850 Other: Urine Color Dark Domi Yellow Urine Appearance Clear Clear Cloudy Urine Odor Normal Normal Stool Size Moderate Stool Characteristics Brown Voiding Methods Toilet Toilet Data Completed and Pending Labs on day of discharge: Labs from last 24 hours 08/24/20 08/24/20 08/24/20 06:15 06:15 06:15 WBC 8.97 RBC 4.32 Hgb 11.7 Hct 36.8 MCV 85.2 MCH 27.1 MCHC 31.8 L RDW 14.2 Plt Count 221 MPV 9.4 Immature Gran % 0.9 Neutrophils % 75.4 Lymphocytes % 11.4 Monocytes % 7.6 Eosinophils % 4.0 Basophils % 0.7 Nucleated RBC % 0 Absolute Neutrophils 6.77 H Absolute Lymphocytes 1.02 L Absolute Monocytes 0.68 Absolute Eosinophils 0.36 Absolute Basophils 0.06 Sodium 141 Potassium 4.1 Chloride 107 Carbon Dioxide 26.0 Anion Gap 8.0 BUN 3 L Creatinine 0.6 Estimated GFR/1.73 m2 >= 60.00 Glucose 271 H Calcium 7.9 L Magnesium 1.8 Total Bilirubin 0.4 AST 19 ALT 21 Alkaline Phosphatase 120 H Total Protein 5.8 L Albumin 2.4 L Carcinoembryonic Ag Pending [facility] Medical History Alopecia Anxiety (03/20/12) Bowel incontinence After stroke Carpal tunnel syndrome left Chest pain (08/23/12) neg. MPI; esophageal spasm per UGI Chronic constipation COPD (chronic obstructive pulmonary disease) Coronary artery disease Depressive disorder (03/20/12) Dizziness (03/20/12) Dysfunctional uterine bleeding Essential hypertension (11/15/12) SBP goal 120-140 Dr. Arreaga Gastroparesis (04/17/14) DR. FOLEY-04/17/14 Hirsutism (03/20/12) Hyperlipidemia Hypokalemia Insomnia, unspecified (03/20/12) Medial malleolar fracture (09/21/18) Migraine headache with aura Migraine headache without aura Narcolepsy without cataplexy Pt. denies this Non-alcoholic fatty liver disease (04/06/12) Onycholysis Onychomycosis Orthostasis ALEXA (obstructive sleep apnea) Papilloma of oral cavity Personality disorder MULTIPLE Postmenopausal Bleeding Posttraumatic stress disorder (03/20/12) multiple admissions to care bed. While waking up from anesthesia say name first before touching patient. Schizophrenia Smoker Syncope and collapse Type II diabetes mellitus with complication, uncontrolled (01/22/14) Goal AIC <7 Dr. Arreaga Surgical History History of appendectomy (~10/02/17) History of bilateral ligation of fallopian tubes History of section History of esophagogastroduodenoscopy (01/03/14) History of right and left heart catheterization 03/30/15 & 05/15/17 - [facility] Postoperative state Status post carpal tunnel release (~2016) Left Status post cholecystectomy Trigger finger, left middle finger S/P Release: 08/04/2020 Family History Mother Substance abuse Diabetes Heart disease Hypertension Father Substance abuse Diabetes Heart disease Hypertension Sister Cancer Heart disease Social History Smoking/Tobacco Use Status: Current every day Tobacco Type: cigarettes Years smoked: 40 Smoking risk assessment performed?: Yes Alcohol Intake: current Alcohol Intake frequency: holidays/special occasions only Alcohol type: wine Drug use: Daily Substance use type: marijuana Adopted: No Caregiver/Support person: No Foster care: No Household members: none Number of Children: 2 Do you need help understanding health information?: Never current occupation: Disabled Pets and animals: Yes (Therapy dog) Sexually active: No Do you think of yourself as: straight/heterosexual Current gender identity: female What is your relationship status?: Panel score (0-1 are the most socially isolated patients): 0 Seatbelt use: never Do you feel safe at home: Yes Do you feel safe in your relationship?: Yes
--- NOTE | 2020-08-24 14:40 | CHAPLAIN ---
I visited with Lis this morning. She was hoping to be discharged as she had been waiting to be transferred to [facility] or , or go to for the day to for tests and return here. I don't which of those options happened. This morning she was frustrated and disappointed that she was not going anywhere. She said she would rather go home. In the past Lis said she had been to [facility], because she lives in [place], but said she didn't believe she was treated well there. When you have a mental illness, they put you in a different category, she said. S She has been in touch with her two sons. One lives near [facility], or some [facility] area in the [facility]. Her other son is in [place]. She is also close to a niece and nephew, but has not told them everything about why she is here as their mom (Lis's sister) from cancer.
--- NOTE | 2020-08-24 17:19 | CMPROGNOTE_ITS ---
- If Service Date Differs Date of service: 08/24/20 Time of Service: 17:19 Care Management Progress Note S/O: Lis was transferred to [facility] today. She has been waiting for a bed since she arrived with a large mass in her colon, several liver lesions, and mesenteric adenopathy concerning for metastatic colon cancer. She was transported via [place], coordinated by RN water and sewer systems supervisor. A: Lis is a 55 year old female admitted to [facility] on 08/19/20 for an abdominal mass. P: Lis was transferred to [facility]. She transported via ambulance, coordinated by RN Lpta. She will follow up with her PCP and discharge plan of care. CM will continue to follow.
--- NOTE | 2020-08-24 17:19 | PDOC.CMPRO ---
- If Service Date Differs Date of service: 08/24/20 Time of Service: 17:19 Care Management Progress Note S/O: Lis was transferred to [facility] today. She has been waiting for a bed since she arrived with a large mass in her colon, several liver lesions, and mesenteric adenopathy concerning for metastatic colon cancer. She was transported via [place], coordinated by RN apartment maintenance supervisor. A: Lis is a 55 year old female admitted to [facility] on 08/19/20 for an abdominal mass. P: Lis was transferred to [facility]. She transported via ambulance, coordinated by RN Funeral Location Manager. She will follow up with her PCP and discharge plan of care. CM will continue to follow.
[2020-08-24 19:42] LABS: CEA <2.0 ng/mL (See Note)
== END 2020-08-24 12:14 | disposition short-term general hospital (02) | DRG 375 ==
LOC: ER 22:39 → MS 23:14
PROVIDERS: Surgery; Admitting Provider Surgery; Emergency Provider Physician Assistant; Visit Provider Surgery
DX: C18.2 Malignant neoplasm of ascending colon (principal); C78.7 Secondary malignant neoplasm of liver and intrahepatic bile duct; C77.5 Secondary and unspecified malignant neoplasm of intrapelvic lymph nodes; J44.9 Chronic obstructive pulmonary disease, unspecified; G47.33 Obstructive sleep apnea (adult) (pediatric); E11.43 Type 2 diabetes mellitus with diabetic autonomic (poly)neuropathy; K31.84 Gastroparesis; F41.9 Anxiety disorder, unspecified; I10 Essential (primary) hypertension; F20.9 Schizophrenia, unspecified; K59.09 Other constipation; E78.5 Hyperlipidemia, unspecified; I25.10 Atherosclerotic heart disease of native coronary artery without angina pectoris; F32.9 Major depressive disorder, single episode, unspecified; K76.0 Fatty (change of) liver, not elsewhere classified; F43.10 Post-traumatic stress disorder, unspecified; F44.81 Dissociative identity disorder; Z79.4 Long term (current) use of insulin; Z86.73 Personal history of transient ischemic attack (TIA), and cerebral infarction without residual deficits; Z20.822 Contact with and (suspected) exposure to COVID-19; I25.2 Old myocardial infarction; Z95.5 Presence of coronary angioplasty implant and graft
CPT/HCPCS: 36415; 36573; 80053; 83690; 87635; 96361; 96365; 96375; 99223; 99232; 99233; 99238; 99285; 74022; 74177; 81003; 81015; 82378; 83605; 83615; 83735; 84484; 85025; 85610; 85730; 93005; 93010; 99284; J0131; J1885; J2405; J3475; J3490